=== PATIENT | female | born 1965 | race Caucasian/White ===

== ENCOUNTER 2023-07-14 09:55 | Emergency (ER) | payer OTHER, MEDICARE, SELFPAY ==
[2023-07-14 10:02] VITALS: BP 152/105; PULSE 91; TEMP 36.4; O2SAT 96; BMI 41.6
--- NOTE | 2023-07-14 10:11 | PC.NURSE ---
Nosebleed from R nostril first and then into L nostril -- on and off since thursday. started today at 0730. bleeding controlled at this time.
--- NOTE | 2023-07-14 10:14 | ED_ITS ---
HPI - Epistaxis General Chief Complaint: Epistaxis Stated Complaint: NEEDS NOSE PACKED Time Seen by Provider: 07/14/23 10:04 Source: patient Mode of arrival: walk-in Limitations: no limitations History of Present Illness HPI Narrative: 57-year-old female presents for intermittent nosebleed on the right side for the past few days. No injury. It was heavy at home she states. She has not had a nosebleed since she was a child. She does not take blood thinners. Related Data Previous Rx's ?Medication ?Instructions ?Recorded amoxicillin 500 mg capsule 500 mg PO TID 3 days #9 caps 07/14/23 Allergies Allergy/AdvReac Type Severity Reaction Status Date / Time Sulfa (Sulfonamide Allergy Verified 07/14/23 10:05 Antibiotics) Review of Systems ROS Narrative A ten point review of systems is negative except as noted above. Exam Narrative Exam Narrative: Nurses note and vital signs reviewed and patient is not hypoxic. General: The patient appears well and in no apparent distress. Patient is resting comfortably on cart. Skin: Warm, dry, no pallor noted. There is no rash noted. Head: Normocephalic, atraumatic Eye: Normal conjunctiva, no drainage Ears, Nose, Mouth, and Throat: oral mucosa is moist. Nares patent. No active bleeding Cardiovascular: Regular Rate and Rhythm Respiratory: Patient is in no distress, no accessory muscle use, lungs are clear to auscultation, no wheezing, rales or rhonchi Back: non-tender GI: Soft and nontender Musculoskeletal: The patient has no evidence of calf tenderness, no pitting edema, symmetrical pulses noted bilaterally Neurological: A&O, normal speech Psychiatric: Cooperative Constitutional Vital Signs, click to edit/add: Last Vital Signs Temp 97.6 F 07/14/23 10:02 Pulse 91 H 07/14/23 10:02 Resp 18 07/14/23 10:02 BP 148/96 H 07/14/23 10:17 Pulse Ox 96 07/14/23 10:02 O2 Del Method Room Air 07/14/23 10:02 Course Vital Signs Vital signs: Vital Signs Temperature 97.6 F 07/14/23 10:02 Pulse Rate 91 H 07/14/23 10:02 Respiratory Rate 18 07/14/23 10:02 Blood Pressure 152/105 H 07/14/23 10:02 Pulse Oximetry 96 07/14/23 10:02 Oxygen Delivery Method Room Air 07/14/23 10:02 Temperature 97.6 F 07/14/23 10:02 Pulse Rate 91 H 07/14/23 10:02 Respiratory Rate 18 07/14/23 10:02 Blood Pressure 148/96 H 07/14/23 10:17 Pulse Oximetry 96 07/14/23 10:02 Oxygen Delivery Method Room Air 07/14/23 10:02 MDM - Epistaxis MDM Narrative Medical decision making narrative: The patient was instructed to have the packing taken out in 3 days. She has an appointment with ENT physician in 3 days and she was placed on a short course of prophylactic amoxicillin. Treatment diagnosis and follow-up were discussed with the patient. Differential Diagnosis Differential diagnosis: Likely anterior epistaxis and posterior epistaxis Lab Data Attestation: I reviewed the patient's lab results. Labs: Lab Results 07/14/23 Range/Units 10:26 WBC 4.0 (4.0-11.0) 10^3/uL RBC 4.53 (4.20-5.40) 10^6/uL Hgb 13.4 (12.0-16.0) g/dL Hct 40.5 (36.0-48.0) % MCV 89.4 (81.0-99.0) fL MCH 29.6 (26.7-34.0) pg MCHC 33.1 (29.9-35.2) g/dL RDW 11.9 (11.0-15.0) % Plt Count 248 (150-450) 10^3/uL MPV 10.0 (9.5-13.5) fL Neut % (Auto) 76.3 H (43.0-75.0) % Lymph % (Auto) 17.1 L (20.5-60.0) % [place] % (Auto) 3.7 (1.7-12.0) % Eos % (Auto) 1.2 (0.9-7.0) % Baso % (Auto) 1.2 (0.2-2.0) % Neut # (Auto) 3.1 (1.4-6.5) 10^3/uL Lymph # (Auto) 0.7 L (1.2-3.8) 10^3/uL [place] # (Auto) 0.2 L (0.3-0.8) 10^3/uL Eos # (Auto) 0.1 (0.0-0.7) 10^3/uL Baso # (Auto) 0.1 (0.0-0.1) 10^3/uL Abs Immat Gran (auto) 0.02 (0.00-0.03) 10^3/uL Imm/Tot Granulo (auto) 0.5 (0.0-0.5) % Sodium 139 (136-145) mmol/L Potassium 3.8 (3.5-5.1) mmol/L Chloride 104 (98-107) mmol/L Carbon Dioxide 23.6 (21.0-32.0) mmol/L Anion Gap 15.2 BUN 10.0 (7.0-18.0) mg/dL Creatinine 0.87 (0.55-1.02) mg/dL Est GFR ( Amer) >60 (>=60) Est GFR (Non-Af Amer) >60 (>=60) BUN/Creatinine Ratio 11.5 Glucose 122 H (74-106) mg/dL Calcium 8.3 L (8.5-10.1) mg/dL Discharge Plan Discharge Stand Alone Forms: Portal Instructions Chief Complaint: Epistaxis Clinical Impression: Epistaxis Patient Disposition: Home, Self-Care Time of Disposition Decision: 10:58 Condition: Good Mode of Transportation: Private Vehicle Prescriptions / Home Meds: New amoxicillin 500 mg capsule 500 mg PO TID 3 Days Qty: 9 0RF Print Language: Liberian Instructions: Nosebleed (ED) Additional Instructions: See the ENT physician at your appointment on Thursday. Packing should be removed on Thursday. Referrals: BARBARA NIELSON [Primary Care Provider] - 1 week Procedures ED Procedure Instructions Procedures Procedures: The following procedure was performed by me. 5.5 cm anterior inflatable packing was placed in the right nares with no difficulty. This resulted in complete hemostasis. She tolerated the procedure well. No complications.
[2023-07-14 10:17] VITALS: BP 148/96
[2023-07-14 10:38] LABS: Basophils Absolute Auto 0.1 10^3/uL (0.0-0.1); Basophils Percent Auto 1.2 % (0.2-2.0); Eosinophils Absolute Auto 0.1 10^3/uL (0.0-0.7); Eosinophils Percent Auto 1.2 % (0.9-7.0); Hematocrit 40.5 % (36.0-48.0); Hemoglobin 13.4 g/dL (12.0-16.0); Immature Granulocytes Abs Auto 0.02 10^3/uL (0.00-0.03); Immature Granulocytes Pct Auto 0.5 % (0.0-0.5); Lymphocytes Absolute Auto 0.7 10^3/uL (1.2-3.8); Lymphocytes Percent Auto 17.1 % (20.5-60.0); Mean Corpuscular HGB Conc 33.1 g/dL (29.9-35.2); Mean Corpuscular Hemoglobin 29.6 pg (26.7-34.0); Mean Corpuscular Volume 89.4 fL (81.0-99.0); Monocytes Absolute Auto 0.2 10^3/uL (0.3-0.8); Monocytes Percent Auto 3.7 % (1.7-12.0); Neutrophils Absolute Auto 3.1 10^3/uL (1.4-6.5); Neutrophils Percent Auto 76.3 % (43.0-75.0); Platelet Count 248 10^3/uL (150-450); Red Blood Count 4.53 10^6/uL (4.20-5.40); Red Cell Distribution Width 11.9 % (11.0-15.0)
[2023-07-14 10:48] LABS: Anion Gap 15.2; BUN Creatinine Ratio 11.5; Calcium 8.3 mg/dL (8.5-10.1); Carbon Dioxide 23.6 mmol/L (21.0-32.0); Chloride 104 mmol/L (98-107); Estimated GFR (African America >60 (>=60); Estimated GFR (Non-African Ame >60 (>=60); Glucose 122 mg/dL (74-106); Potassium 3.8 mmol/L (3.5-5.1); Sodium 139 mmol/L (136-145)
== END 2023-07-14 11:17 | disposition home or self-care (01) ==
PROVIDERS: Emergency Provider Emergency Medicine; PCP Family Medicine
DX: R04.0 Epistaxis (principal)
CPT/HCPCS: 30901; 36415; 80048; 85025; 85610; 85730; 99283; 99285

== ENCOUNTER 2023-07-14 11:35 | Emergency (ER) | payer OTHER, MEDICARE, SELFPAY ==
[2023-07-14 11:46] VITALS: BP 150/100; PULSE 112; TEMP 36.6; O2SAT 96; BMI 25.0
--- NOTE | 2023-07-14 14:22 | ED.EPISTAXI1 ---
HPI - Epistaxis General Chief Complaint: Epistaxis Stated Complaint: NOSE BLEEDING Time Seen by Provider: 07/14/23 12:09 Source: patient Mode of arrival: walk-in Limitations: no limitations History of Present Illness HPI Narrative: 57-year-old female presented for nosebleed. She has been seen here earlier today and was discharged after packing was applied. She had more bleeding from the right nares and she returned. No trauma. Related Data Previous Rx's ?Medication ?Instructions ?Recorded amoxicillin 500 mg capsule 500 mg PO TID 3 days #9 caps 07/14/23 Allergies Allergy/AdvReac Type Severity Reaction Status Date / Time Sulfa (Sulfonamide Allergy Verified 07/14/23 10:05 Antibiotics) Review of Systems ROS Narrative A ten point review of systems is negative except as noted above. Exam Narrative Exam Narrative: Nurses note and vital signs reviewed and patient is not hypoxic. General: The patient appears well and in no apparent distress. Patient is resting comfortably on cart. Skin: Warm, dry, no pallor noted. There is no rash noted. Head: Normocephalic, atraumatic Eye: Normal conjunctiva, no drainage Ears, Nose, Mouth, and Throat: oral mucosa is moist. Right nares has packing in place, inflatable. No active bleeding now. Cardiovascular: Regular Rate and Rhythm Respiratory: Patient is in no distress, no accessory muscle use, lungs are clear to auscultation, no wheezing, rales or rhonchi Back: non-tender GI: Soft and nontender Musculoskeletal: The patient has no evidence of calf tenderness, no pitting edema, symmetrical pulses noted bilaterally Neurological: A&O, normal speech Psychiatric: Cooperative Constitutional Vital Signs, click to edit/add: Last Vital Signs Temp 97.8 F 07/14/23 11:46 Pulse 112 H 07/14/23 11:46 Resp 200 H 07/14/23 11:46 BP 150/100 H 07/14/23 11:46 Pulse Ox 96 07/14/23 11:46 O2 Del Method Room Air 07/14/23 11:46 Course Vital Signs Vital signs: Vital Signs Temperature 97.8 F 07/14/23 11:46 Pulse Rate 112 H 07/14/23 11:46 Respiratory Rate 200 H 07/14/23 11:46 Blood Pressure 150/100 H 07/14/23 11:46 Pulse Oximetry 96 07/14/23 11:46 Oxygen Delivery Method Room Air 07/14/23 11:46 Temperature 97.8 F 07/14/23 11:46 Pulse Rate 112 H 07/14/23 11:46 Respiratory Rate 200 H 07/14/23 11:46 Blood Pressure 150/100 H 07/14/23 11:46 Pulse Oximetry 96 07/14/23 11:46 Oxygen Delivery Method Room Air 07/14/23 11:46 MDM - Epistaxis MDM Narrative Medical decision making narrative: She will see her ENT physician in 3 days and should have the packing removed that day. Treatment diagnosis and follow-up were discussed with the patient. Differential Diagnosis Differential diagnosis: Likely anterior epistaxis and posterior epistaxis Discharge Plan Discharge Stand Alone Forms: Portal Instructions Chief Complaint: Epistaxis Clinical Impression: Epistaxis Patient Disposition: Home, Self-Care Time of Disposition Decision: 14:23 Condition: Good Mode of Transportation: Private Vehicle Prescriptions / Home Meds: No Action amoxicillin 500 mg capsule 500 mg PO TID 3 Days Qty: 9 0RF Print Language: Spanish Instructions: Nosebleed (ED) Additional Instructions: See the ENT physician as scheduled on Thursday. Packing to be removed on Thursday. Referrals: BARBARA NIELSON [Primary Care Provider] - 1 week Procedures ED Procedure Instructions Procedures Procedures: The following procedure was performed by me. The existing nasal packing was removed. She did not seem to have any further bleeding and Vaseline gauze packing was applied to the right nares and taped in place. She tolerated the procedure well. Hemostasis achieved.
== END 2023-07-14 14:37 | disposition home or self-care (01) ==
PROVIDERS: Emergency Provider Emergency Medicine; PCP Family Medicine
DX: R04.0 Epistaxis (principal)
CPT/HCPCS: 30901; 99283

== ENCOUNTER 2023-07-14 16:56 | Emergency (ER) | payer OTHER, MEDICARE, SELFPAY ==
[2023-07-14 17:03] VITALS: BP 160/80; PULSE 125; TEMP 36.5; O2SAT 98; BMI 41.6
[2023-07-14 17:50] LABS: Basophils Absolute Auto 0.1 10^3/uL (0.0-0.1); Eosinophils Percent Auto 0.6 % (0.9-7.0); Hematocrit 42.3 % (36.0-48.0); Hemoglobin 13.7 g/dL (12.0-16.0); Immature Granulocytes Abs Auto 0.02 10^3/uL (0.00-0.03); Immature Granulocytes Pct Auto 0.3 % (0.0-0.5); Lymphocytes Absolute Auto 1.2 10^3/uL (1.2-3.8); Lymphocytes Percent Auto 18.1 % (20.5-60.0); Mean Corpuscular HGB Conc 32.4 g/dL (29.9-35.2); Mean Corpuscular Hemoglobin 29.1 pg (26.7-34.0); Mean Corpuscular Volume 89.8 fL (81.0-99.0); Monocytes Absolute Auto 0.3 10^3/uL (0.3-0.8); Monocytes Percent Auto 4.2 % (1.7-12.0); Neutrophils Absolute Auto 5.1 10^3/uL (1.4-6.5); Neutrophils Percent Auto 75.8 % (43.0-75.0); Platelet Count 305 10^3/uL (150-450); Red Blood Count 4.71 10^6/uL (4.20-5.40); Red Cell Distribution Width 11.8 % (11.0-15.0); White Blood Count 6.7 10^3/uL (4.0-11.0)
[2023-07-14 17:55] LABS: Anion Gap 14.9; BUN Creatinine Ratio 25.3; Calcium 8.4 mg/dL (8.5-10.1); Carbon Dioxide 25.1 mmol/L (21.0-32.0); Chloride 105 mmol/L (98-107); Estimated GFR (African America >60 (>=60); Estimated GFR (Non-African Ame >60 (>=60); Glucose 133 mg/dL (74-106); Sodium 141 mmol/L (136-145)
[2023-07-14] MEDS: PHENYLEPHRINE HCL 0.25 % NASAL SPRAY 2 SPRAY NS (17:56)
[2023-07-14 18:05] LABS: INR 0.94
--- NOTE | 2023-07-14 19:03 | ED.EPISTAXI1 ---
HPI - Epistaxis General Chief Complaint: Epistaxis Stated Complaint: Epistaxis Time Seen by Provider: 07/14/23 17:06 Source: patient and family Mode of arrival: walk-in Limitations: no limitations History of Present Illness HPI Narrative: 57-year-old female presented for the third time today with a nosebleed. It started again after she had been home for several hours and it still coming from the right side. She is not on blood thinners. Related Data Previous Rx's ?Medication ?Instructions ?Recorded amoxicillin 500 mg capsule 500 mg PO TID 3 days #9 caps 07/14/23 Allergies Allergy/AdvReac Type Severity Reaction Status Date / Time Sulfa (Sulfonamide Allergy Verified 07/14/23 10:05 Antibiotics) Review of Systems ROS Narrative A ten point review of systems is negative except as noted above. Exam Narrative Exam Narrative: Nurses note and vital signs reviewed and patient is not hypoxic. General: The patient appears well and in no apparent distress. Patient is resting comfortably on cart. Skin: Warm, dry, no pallor noted. There is no rash noted. Head: Normocephalic, atraumatic Eye: Normal conjunctiva, no drainage Ears, Nose, Mouth, and Throat: oral mucosa is moist. Packing present on the right side. Cardiovascular: Regular Rate and Rhythm Respiratory: Patient is in no distress, no accessory muscle use, lungs are clear to auscultation, no wheezing, rales or rhonchi Back: non-tender GI: Soft and nontender Musculoskeletal: The patient has no evidence of calf tenderness, no pitting edema, symmetrical pulses noted bilaterally Neurological: A&O, normal speech Psychiatric: Cooperative Constitutional Vital Signs, click to edit/add: Last Vital Signs Temp 97.7 F 07/14/23 17:03 Pulse 125 H 07/14/23 17:03 Resp 18 07/14/23 17:03 BP 160/80 H 07/14/23 17:03 Pulse Ox 98 07/14/23 17:03 O2 Del Method Room Air 07/14/23 17:03 Course Vital Signs Vital signs: Vital Signs Temperature 97.7 F 07/14/23 17:03 Pulse Rate 125 H 07/14/23 17:03 Respiratory Rate 18 07/14/23 17:03 Blood Pressure 160/80 H 07/14/23 17:03 Pulse Oximetry 98 07/14/23 17:03 Oxygen Delivery Method Room Air 07/14/23 17:03 Temperature 97.7 F 07/14/23 17:03 Pulse Rate 125 H 07/14/23 17:03 Respiratory Rate 18 07/14/23 17:03 Blood Pressure 160/80 H 07/14/23 17:03 Pulse Oximetry 98 07/14/23 17:03 Oxygen Delivery Method Room Air 07/14/23 17:03 MDM - Epistaxis MDM Narrative Medical decision making narrative: Hemoglobin has not changed. She is requesting transfer to facility with ENT and this is pending. Differential Diagnosis Differential diagnosis: Likely anterior epistaxis and posterior epistaxis Lab Data Attestation: I reviewed the patient's lab results. Labs: Lab Results 07/14/23 Range/Units 17:35 WBC 6.7 (4.0-11.0) 10^3/uL RBC 4.71 (4.20-5.40) 10^6/uL Hgb 13.7 (12.0-16.0) g/dL Hct 42.3 (36.0-48.0) % MCV 89.8 (81.0-99.0) fL MCH 29.1 (26.7-34.0) pg MCHC 32.4 (29.9-35.2) g/dL RDW 11.8 (11.0-15.0) % Plt Count 305 (150-450) 10^3/uL MPV 10.0 (9.5-13.5) fL Neut % (Auto) 75.8 H (43.0-75.0) % Lymph % (Auto) 18.1 L (20.5-60.0) % [place] % (Auto) 4.2 (1.7-12.0) % Eos % (Auto) 0.6 L (0.9-7.0) % Baso % (Auto) 1.0 (0.2-2.0) % Neut # (Auto) 5.1 (1.4-6.5) 10^3/uL Lymph # (Auto) 1.2 (1.2-3.8) 10^3/uL [place] # (Auto) 0.3 (0.3-0.8) 10^3/uL Eos # (Auto) 0.0 (0.0-0.7) 10^3/uL Baso # (Auto) 0.1 (0.0-0.1) 10^3/uL Abs Immat Gran (auto) 0.02 (0.00-0.03) 10^3/uL Imm/Tot Granulo (auto) 0.3 (0.0-0.5) % PT 10.0 (9.0-11.6) sec INR 0.94 APTT 26.0 (22.3-36.2) sec Sodium 141 (136-145) mmol/L Potassium 4.0 (3.5-5.1) mmol/L Chloride 105 (98-107) mmol/L Carbon Dioxide 25.1 (21.0-32.0) mmol/L Anion Gap 14.9 BUN 21.0 H (7.0-18.0) mg/dL Creatinine 0.83 (0.55-1.02) mg/dL Est GFR ( Amer) >60 (>=60) Est GFR (Non-Af Amer) >60 (>=60) BUN/Creatinine Ratio 25.3 Glucose 133 H (74-106) mg/dL Calcium 8.4 L (8.5-10.1) mg/dL Discharge Plan Discharge Patient Disposition: Still a Patient Procedures ED Procedure Instructions Procedures Procedures: I have removed the existing packing and placed a 7.5 cm anterior posterior packing into the right nares which resulted again in hemostasis.
[2023-07-14 19:35] VITALS: BP 126/84
--- NOTE | 2023-07-14 21:03 | PC.NURSE ---
1935: Patient property preservation specialist light stating patient walked to the bathroom and back to room when nose started to bleed around the rhino rocket. This RN placed pressure on nose. Bleeding subsided after 10 minutes of constant pressure. 1950: Patient property preservation specialist light for bleeding that started again. Patient states was attempting to wipe mouth and nose when bleeding started. Pressure applied for 15 minutes. Physician notified of bleeding. Dr. Cabrera removed rhino rocket at this time. Patient instructed to hold constant pressure. Ice pack placed on back of the neck. 2030: Patient property preservation specialist light stating that bleeding has started again. Pressure placed. Bleeding subsided at this time.
[2023-07-14 21:11] VITALS: BP 147/90; PULSE 107; O2SAT 98
== END 2023-07-14 21:51 | disposition short-term general hospital (02) ==
PROVIDERS: Emergency Medicine; Emergency Provider Internal Medicine; PCP Family Medicine
DX: R04.0 Epistaxis (principal)
CPT/HCPCS: 30901; 36415; 80048; 85025; 85610; 85730; 99283; 99285

== ENCOUNTER 2023-09-10 13:41 | Outpatient (OUT) | payer OTHER, MEDICARE, SELFPAY ==
--- NOTE | 2023-09-10 14:00 | CA_ITS ---
Patient Name: JULIETA CASAS MR#: [id number] : 1965 Exam Date: 09/10/2023 Ordering Doctor: MRS. KENNA SANCHEZ NURSING INFORMATICS SPECIALIST-C ECHOCARDIOGRAM REPORT PROCEDURE: CA ECHO DOPPLER COMPLETE INDICATIONS: Atrial septal aneurysm and PFO with closure device COMPARISON: None. DESCRIPTION: COMPLETE ECHOCARDIOGRAM Real-time transthoracic echocardiography with 2D, M-mode, spectral and color flow Doppler performed. QUALITY: Technical quality was adequate. LEFT VENTRICLE: Normal chamber size. Borderline left ventricular hypertrophy. LV EF: Global left ventricular systolic function is normal. Calculated left ventricular ejection fraction is 58%. No significant wall motion abnormalities. DIASTOLIC: Normal diastolic function. ATRIAL SEPTUM: Atrial septal closure device appears well seated without any shunting identified. LEFT ATRIUM: Normal chamber size. RIGHT ATRIUM: Mild dilatation. RIGHT VENTRICLE: Mild dilatation. Normal right ventricular systolic function. TRICUSPID VALVE: Normal mobility and thickness. No stenosis with trivial regurgitation. No evidence of pulmonary hypertension. RVSP 25mmHg MITRAL VALVE: Mildly thickened with normal mobility. No evidence of mitral valve stenosis. There is no mitral annular calcification. Trivial mitral regurgitation. AORTIC VALVE: Normal trileaflet appearance. No visible sclerosis. Normal leaflet mobility. No evidence of aortic valve stenosis. No aortic regurgitation. AORTIC ROOT: Normal diameter and appearance. PULMONIC VALVE: Normal thickness and mobility. No stenosis. No regurgitation. PERICARDIUM: Anterior free space; trivial effusion versus fat pad. IVC: Collapses with inspirations. Normal size. CONCLUSION: 1. Global left ventricular systolic function is normal; visually estimated ejection fraction is 55 to 60% 2. The right ventricle is mildly dilated with normal systolic function 3. Mild right atrial dilatation 4. Borderline left ventricular hypertrophy 5. No significant valvular abnormalities 6. Anterior free space; trivial effusion versus fat pad 7. Atrial septal closure device is seen with no residual shunting by color-flow Adult Echocardiography Procedure Report Left Ventricle LVEDD (3.7 - 5.6 cm): 4.64 cm LVESD (2.2 - 4.0 cm): 3.07 cm LVIVS thickness (0.6 - 1.2 cm): 0.99 cm LVPW thickness (0.5 - 1.0 cm): 1.18 cm e': 0.08 m/s E - e': 8.78 LVOT Max Gradient: 3.01 mm[Hg], 3.54 mm[Hg] LVOT Area (cm2): 0.90 m/s Peak Velocity (LVOT): 0.87 m/s, 0.94 m/s Mean Velocity (LVOT): 0.59 m/s LVOT Diameter 2.12 cm Left Ventricular Ejection Fraction: 57.70 % Left Atrium LA Volume Index (2D A2C): 22.91 ml/m2 Left Atrium Systolic Dimension: 4.48 cm Mitral Valve MV E to A Ratio: 0.74 Mitral Valve A-Wave Peak Velocity: 0.96 m/s Mitral Valve E-Wave Peak Velocity: 0.71 m/s Right Ventricle RV Internal Diastolic Dimension: 4.26 cm Aorta AO Root Diam: 3.07 cm Ascending Ao Diam: 2.80 cm Aortic Valve AoV Area (Peak Shin): 2.22 cm2, 2.13 cm2 AoV Area (VTI): 2.03 cm2, 2.07 cm2 Peak Velocity(Antegrade Flow): 1.43 m/s Peak Gradient(Antegrade Flow): 8.20 mm[Hg] Mean Velocity(Antegrade Flow): 0.93 m/s Mean Gradient(Antegrade Flow): 3.96 mm[Hg] Velocity Time Integral: 29.25 cm Tricuspid Valve Peak Velocity (Regurgitant Flow): 2.33 m/s Pulmonic Valve Mean Gradient: 2.19 mm[Hg], 2.08 mm[Hg], 1.41 mm[Hg] Mean Velocity: 0.69 m/s, 0.68 m/s, 0.55 m/s Peak Velocity: 0.92 m/s Peak Gradient: 3.96 mm[Hg], 3.51 mm[Hg], 2.80 mm[Hg] Right Atrium Right Atrium Systolic Pressure: 86.49 ml, 86.49 ml Dictated by: Caterina Molina M.D. on 09/14/2023 at 15:36 Approved by: Caterina Molina M.D. on 09/14/2023 at 15:40
--- NOTE | 2023-09-10 14:53 | US_ITS ---
[place] [id number] Patient Name: JULIETA CASAS MRN: [id number] date: 1965 Sex: F Assigned Patient Location: CARD Current Patient Location: CARD Accession/Order Number: [id number] Exam Date: 09/10/2023 14:55 Report Date: 09/10/2023 16:09 At the request of: KENNA SANCHEZ Procedure: US carotid duplex BI EXAMINATION: US carotid duplex BI HISTORY: Bruit Of Left Carotid Artery R09.89 COMPARISON: No relevant comparison available. TECHNIQUE: Duplex Doppler ultrasound analysis of carotid and vertebral arteries. . Bilateral carotid arterial duplex examination was performed using B-mode, color flow and spectral analysis. Carotid stenosis is reported according to validated velocity parameters, similar to NASCET criteria. FINDINGS: RIGHT CAROTID ARTERY No atherosclerotic plaque Subclavian: PSV: 117.8 cm/s cm/s EDV: 4.7 cm/s cm/s CCA: Prox: PSV: 84.0 cm/s cm/s EDV: 28.3 cm/s cm/s Mid: PSV: 93.0 cm/s cm/s EDV: 28.3 cm/s cm/s Distal: PSV: 86.6 cm/s cm/s EDV: 30.9 cm/s cm/s BULB: PSV: 84.0 cm/s cm/s EDV: 33.5 cm/s cm/s ICA: Prox: PSV: 85.3 cm/s cm/s EDV: 30.9 cm/s cm/s Mid: PSV: 61.4 cm/s cm/s EDV: 19.7 cm/s cm/s Distal: PSV: 53.7 cm/s cm/s EDV: 15.3 cm/s cm/s ECA: PSV: 91.1 cm/s cm/s EDV: 12.0 cm/s cm/s VERTEBRAL: PSV: 57.0 cm/s cm/s EDV: 17.5 cm/s cm/s, antegrade ICA/CCA ratio: PSV: 1.0 EDV: 1.0 LEFT CAROTID ARTERY no atherosclerotic plaque Subclavian: PSV: 95.6 cm/s cm/s EDV: 0.0 cm/s CCA: Prox: PSV: 91.7 cm/s cm/s EDV: 33.5 cm/s Mid: PSV: 91.7 cm/s cm/s EDV: 29.6 cm/s Distal: PSV: 74.9 cm/s cm/s EDV: 28.3 cm/s BULB: PSV: 52.9 cm/s cm/s EDV: 20.6 cm/s ICA: Prox: PSV: 60.7 cm/s cm/s EDV: 27.0 cm/s Mid: PSV: 82.6 cm/s cm/s EDV: 36.1 cm/s Distal: PSV: 118.1 cm/s cm/s EDV: 55.0 cm/s ECA: PSV: 120.0 cm/s cm/s EDV: 13.6 cm/s VERTEBRAL: PSV: 74.7 cm/s cm/s EDV: 31.3 cm/s , antegrade ICA/CCA ratio: PSV: 1.6 EDV: 1.9 US/US carotid duplex BI IMPRESSION: 0-49% flow stenosis bilateral internal carotid arteries Spectral Doppler US Thresholds (Reference: Jamar EG, et al. Radiology 2000; 214:247-252) Stenosis (%) PSV (cm/sec) VICA/VCCA 0-49 <150 <2.5 50-69 150-225 2.5-4.0 >70 >225 >4.0 Electronically authenticated by: MUSHTAQ FULLER Date: 09/10/2023 16:09
== END 2023-09-10 13:42 | disposition home or self-care (01) ==
LOC: CARD 13:45
PROVIDERS: PCP Family Medicine; Visit Provider Nurse Practitioner Family
DX: I25.3 Aneurysm of heart (principal); Q21.10 Atrial septal defect, unspecified; I45.10 Unspecified right bundle-branch block; R09.89 Other specified symptoms and signs involving the circulatory and respiratory systems
CPT/HCPCS: 93306; 93880

== ENCOUNTER 2023-11-16 10:39 | Outpatient (OUT) | payer OTHER, MEDICARE, SELFPAY ==
--- NOTE | 2023-11-16 10:41 | US_ITS ---
The [address] [address] Patient Name: JULIETA CASAS MRN: [id number] date: 1965 Sex: F Assigned Patient Location: Current Patient Location: Accession/Order Number: [id number] Exam Date: 11/16/2023 10:50 Report Date: 11/17/2023 08:13 At the request of: KENNA SANCHEZ Procedure: US pelvis transvaginal EXAM: Pelvic ultrasound HISTORY: . Bloating R14.0 . COMPARISON: None. TECHNIQUE: Transvaginal scanning was performed FINDINGS: The uterus is absent. Right ovary measures 1.8 x 2 x 2.3 cm. Color-flow is noted. Resistive indexes 0.6. No masses are noted. Left ovary measures 2.1 x 1.6 x 1.5 cm. Color-flow is noted. Resistive indexes 0.6. No masses are noted. No fluid is noted in the cul-de-sac. US/US pelvis transvaginal IMPRESSION: 1. Absent uterus 2. Normal-appearing ovaries Electronically authenticated by: MUSHTAQ BELLO Date: 11/17/2023 08:13
--- OUTSIDE RECORDS SUMMARY | 2023-11-16 10:55 | XMS_ITS | CCD ---
Author Organization [facility] Care Team Providers Care Materials Engineering Technician Name Role Phone DR MARIE NIELSON Primary Care Unavailable WOOD De Leon, DR BURNHAM Attending Unavailable WOOD De Leon, DR BURNHAM Consulting Unavailable WOOD De Leon, DR BURNHAM Admitting Unavailable MD Marie Nielson Primary Care Provider DO Agustin Pimentel Emergency Provider [phone] MD Marie Nielson Primary Care Provider DO Agustin Pimentel Emergency Provider DO Med Owens Emergency Provider Unavailable Primary Care Provider Unavailabl e Agustin Pimentel Attending Unavailable Agustin Pimentel Admitting Unavailable Marie Nielson Primary Care Unavailable Med Owens Admitting Unavailable Marie Nielson Primary Care Unavailable Med Owens Attending Unavailable PROVIDER, UNKNOWN Admitting Unavailable PROVIDER, UNKNOWN Attending Unavailable TOMMY VILLAGOMEZ Referring Unavailable BELLA LOVE Attending Unavailable PROVIDER, UNKNOWN Admitting Unavailable ERNESTINA VOGT Attending Unavailable PROVIDER, UNKNOWN Admitting Unavailable KENNA SANCHEZ Attending Unavailable LAURA TOUSSAINT Attending Unavailable ABHAY SANCHEZRI Elise Referring Unavailable LAURA TOUSSAINT Attending Unavailable KENNA SANCHEZ Attending Unavailable KENNA SANCHEZ M Attending Unavailable KENNA SANCHEZ M Attending Unavailable ELIECER NORTON Attending Unavailable MARIE NIELSON Attending Unavailable KENNA SANCHEZ Attending Unavailable Allergies Allergy Classification Reported Allergen(s) Allergy Type Date of Onset Reaction(s) Facility (1 source) Sulfonamides (Antibiotic) Drug allergy (disorder) 3 [facility] (3 sources) Eucalyptus extract; Translations: [eucalyptus] Drug Allergy 4 Unknown Reaction [facility] (3 sources) Sulfonamides (Antibiotic); Translations: [Sulfa (Sulfonamide Antibiotics)] Allergy to substance 4 Rash [facility] (2 sources) Sulfa Drugs Cross Reactors; Translations: [SULFA DRUGS CROSS REACTORS] Propensity to adverse reactions to drug 4 Rash, Diarrhea [facility] Medications Current Medications Medication Drug Class(es) Dates Sig (Normalized) Sig (Original) acetaminophen 325 mg / HYDROcodone bitartrate 5 mg oral tablet (2 sources) Opioid Agonist Start: 01-03-2019 take 5-325 mg by mouth every six hours Hydrocodone-Acetamin ophen Active 5 - 325 MG PO Q6H January 03, 2019 12:00am aspirin 81 mg delayed release oral tablet (2 sources) Platelet Aggregation Inhibitor, Nonsteroidal Anti-inflammatory Drug Start: 01-06-2019 take 81 mg by mouth once daily Aspirin Active 81 MG PO Daily January 06, 2019 12:00am cholecalciferol 0.05 mg oral tablet (2 sources) Vitamin D Start: 01-03-2019 take 1 tablet by mouth once daily Cholecalciferol (Vitamin D3) (Vitamin D3) 2,000 unit Tablet Active 2000 UNIT PO Daily January 03, 2019 12:00am furosemide 40 mg oral tablet (2 sources) Loop Diuretic Start: 01-03-2019 take 40 mg by mouth twice daily Furosemide Active 40 MG PO Twice daily January 03, 2019 12:00am levothyroxine sodium 0.1 mg oral tablet (2 sources) l-Thyroxine Start: 01-03-2019 take 100 ug by mouth once daily in the morning Levothyroxine Active 100 MCG PO Every morning January 03, 2019 12:00am potassium 99 mg extended release oral tablet (2 sources) Start: 01-03-2019 take 99 mg by mouth once daily Potassium Active 99 MG PO Daily January 03, 2019 12:00am Problems Problem Classification Problem Date Documented Da te Episodic/Chronic Menopausal disorders (1 source) Hormone replacement therapy; Translations: [HORMONE REPLACEMENT THERAPY] Onset: 07-14-2022 Episodic Noninfectious gastroenteritis (2 sources) Ileitis; Translations: [Noninfective gastroenteritis and colitis, unspecified] 02-25-2018 Episodic Nonspecific chest pain (1 source) Chest pain, unspecified; Translations: [Chest pain, unspecified] Onset: 05-28-2023 Episodic Other aftercare (1 source) ad terminal makeup operator (current) use of aspirin; Translations: [RAIL SIGNAL DESIGNER CURRENT USE OF ASPIRIN] Onset: 07-14-2022 Episodic Other aftercare (1 source) Other termite control representative (current) drug therapy; Translations: [OTH RAIL SIGNAL DESIGNER CURRENT DRUG THERAPY] Onset: 07-14-2022 Episodic Other ear and sense organ disorders (1 source) Malignant otitis externa, right ear; Translations: [MALIGNANT OTITIS EXTERNA RIGHT EAR] Onset: 07-14-2022 Chronic Other ear and sense organ disorders (1 source) Otalgia, left ear; Translations: [OTALGIA LEFT EAR] Onset: 07-14-2022 Episodic Other ear and sense organ disorders (2 sources) Otalgia, right ear; Translations: [OTALGIA RIGHT EAR] Onset: 07-13-2022 Episodic Other gastrointestinal disorders (2 sources) Diarrhea; Translations: [Diarrhea, unspecified] 05-28-2023 Episodic Other upper respiratory disease (1 source) Bleeding from nose; Translations: [Epistaxis] 07-21-2023 Episodic Other upper respiratory disease (1 source) Epistaxis; Translations: [Epistaxis] Onset: 07-13-2023 Episodic Residual codes; unclassified (1 source) Acquired absence of other specified parts of digestive tract; Translations: [ACQ ABSENCE OTH PART DIGESTV TRACT] Onset: 07-14-2022 Episodic Residual codes; unclassified (1 source) Acquired absence of both cervix and uterus; Translations: [ACQUIRED ABSENCE BOTH CERVIX AND UTERUS] Onset: 07-14-2022 Episodic Rheumatoid arthritis and related disease (1 source) Rheumatoid arthritis, unspecified; Translations: [RHEUMATOID ARTHRITIS UNSPECIFIED] Onset: 07-14-2022 Chronic Screening and history of mental health and substance abuse codes (1 source) Personal history of nicotine dependence; Translations: [PERSONAL HISTORY OF NICOTINE DEPEND] Onset: 07-14-2022 Episodic Thyroid disorders (1 source) Hypothyroidism, unspecified; Translations: [HYPOTHYROIDISM UNSPECIFIED] Onset: 07-14-2022 Chronic Results Test Name Value Interpretation Reference Range Facility Progress Noteson 07-23-2023 Technical Rep Authentication Interface Message Text Seen and examined. Initial history and findings as in Dr. Acevedo's Note Teaching Physician Note: I saw and evaluated the patient. I personally obtained the carlin and critical portions of the history and physical exam. I reviewed the resident's documentation and discussed the patient with the resident. I agree with the resident's medical decision making as documented in the resident's note. Dieudonne Kinney MD Normal [facility] Progress Noteson 07-21-2023 Technical Rep Authentication Interface Message Text Patient was identified by name and date of . Suzy Cuadra Patient in exam room, vital signs taken, ready for MD exam. Normal [facility] Technical Rep Authentication Interface Message Text ENT New Patient Clinic Note Name: Julieta Villa : 1965 PCP: No primary care provider on file. CC: Nose bleed History of Present Illness: Julieta Villa is a 57 year old female who presents to clinic today for initial evaluation of Epistaxis. She initially presented to ED on 07/14/23 for nose bleed of right nares unresolving with rhino rockets. At the time she was noted to have elevated BP 161 and on ASA 81 daily. Right merocel placed, afrin prescribed 3 days, nasal saline, and keflex. Bleeding reoccured / in emergency room and was resolved with angiocath around packing and pressure. Again, her pressure was elevated at that time 144 systolic. This was her first nose bleed since childhood and denies any trauma to the nose. She normally follows with Dr. Floyd in [place] but has elected to come here for packing removal. Since the event she has not had anymore bleeding. She has completed her antibiotics as prescribed. She has stopped using afrin 2 days ago. No other complaints or pertinent history at this time. Review of Systems: A complete 14 point review of systems was obtained and was negative other than what is stated in the history of present illness. Past Medical History: This patient has no past medical history on file. Past Surgical History: This patient has no past surgical history on file. Family History: This patient's family history is not on file. Medications: No current outpatient medications Allergies: Allergies Allergen Reactions Sulfa Drugs Cross Reactors Rash and Diarrhea Social History: Physical Examination: Vitals: There were no vitals taken for this visit. GENERAL: Appears well developed, well nourished RESPIRATION: Breathing comfortably on room air, no stridor CV: No clubbing/cyanosis/e debra in hands EYES: EOM Intact, sclera normal NEURO: AAOx3, Cranial nerves grossly intact HEAD AND FACE: Skin with no masses or lesions EARS: Normal external ears, external auditory canals, and TMs to otoscopy. Conversational hearing grossly intact. NOSE: External nose midline, anterior rhinoscopy is normal with limited visualization to the anterior aspect of the interior turbinates, no lesions noted, right merocel packing removed, right deviated septum with irritated mucosa on anterior right septum, no active bleeding ORAL CAVITY/OROPHARYNX/L IPS: Normal mucous membranes, normal floor of mouth/tongue/OP, no masses or lesions are noted PHARYNGEAL CAMACHO AND NASOPHARYNX: No masses noted NECK/LYMPH: No LAD, no thyroid masses Impression: Julieta Villa is a 57 year old female who presents to ENT clinic today for epistaxis evaluation following ER visits back to back 07/13 and 07/15/23. Merocel packing removed and irritated mucosa exposed underneath without signs of active bleeding. Plan -afrin twice daily for three days, then stop for two days -nasal saline irrigations three times daily or more if tolerated -night time humidification -pressure and forward position discussed for bleeds -counseled on avoiding picking and trauma to nares. This patient was discussed with attending Dr. Kinney, who agrees with the assessment and plan. Sher Acevedo, PGY-1 Otolaryngology Head and Neck Surgery [facility] Service Pager: [phone] Normal [facility] BASIC METABOLIC PANELon 04-0 Anion gap [Moles/Vol] 16 mmol/L Normal 10-20 [facility] Comment on above: Performed By: #### h iv1 hiv2 agab scrn, CH8 ####[facility] [id number] [place], [address] Calcium [Mass/Vol] 8.9 mg/dL Normal 8.6-10.3 [facility] Comment on above: Performed By: #### h iv1 hiv2 agab scrn, CH8 ####[facility] [id number] [place], [address] Chloride [Moles/Vol] 106 mmol/L Normal 98-107 [facility] Comment on above: Performed By: #### h iv1 hiv2 agab scrn, CH8 ####[facility] [id number] [place], [place], CO2 [Moles/Vol] 23 mmol/L Normal 21-31 [facility] Comment on above: Performed By: #### h iv1 hiv2 agab scrn, CH8 ####[facility] [id number] [place], [place], Creatinine [Mass/Vol] 0.74 mg/dL Normal 0.60-1.20 [facility] Comment on above: Performed By: #### h iv1 hiv2 agab scrn, CH8 ####[facility] [id number] [place], [place], ESTIMATED GFR (CKD-EPI) 95 mL/min/1.73sqm Normal >=60 [facility] Comment on above: Result Comment: 2020 CKD EPI Equation using Creatinine without Race Comment: Estimated glomerular filtration rate (eGFR) is calculated without a race coefficient. Values should be interpreted in the context of the patient's full clinical presentation. Reference: 1. Suleman C, Bachary M, Dixon DC, et al.. A Unifying Approach for GFR Estimation: Recommendations of the NKF-ASN Task Force on Reassessing the Inclusion of Race in Diagnosing Kidney Disease. [place] Journal of Kidney Diseases 2021;79(2):268-88.e1. 2. N Engl J Med 2020 Vol. 385 Issue 19 Pages 4008-2961 Performed By: #### h iv1 hiv2 agab scrn, CH8 ####[facility] [id number] [place], [place], Glucose [Mass/Vol] 141 mg/dL High 74-109 [facility] Comment on above: Performed By: #### h iv1 hiv2 agab scrn, CH8 ####[facility] [id number] [place], [place], Potassium [Moles/Vol] 4.9 mmol/L Normal 3.5-5.0 [facility] Comment on above: Result Comment: Hemo lysis present Performed By: #### h iv1 hiv2 agab scrn, CH8 ####[facility] PATH[facility] [id number] [place], [place], Sodium [Moles/Vol] 140 mmol/L Normal 136-145 [facility] Comment on above: Performed By: #### h iv1 hiv2 agab scrn, CH8 ####[facility] [id number] [place], [place], Urea nitrogen [Mass/Vol] 28 mg/dL High 7-25 [facility] Comment on above: Performed By: #### h iv1 hiv2 agab scrn, CH8 ####[facility] [id number] [place], [place], CBC WITH DIFFERENTIALon 040 Basophils (Bld) [#/Vol] 0.07 10*3/uL Normal 0.00-0.20 [facility] Comment on above: Performed By: #### C BCDSAT ####[facility] [id number] [place] [address], Basophils/100 WBC (Bld) 0.8 % Normal <=1.9 T [facility] Comment on above: Performed By: #### C BCDSAT ####[facility] [id number] [place] [address], Eosinophils (Bld) [#/Vol] 0.03 10*3/uL Normal 0.00-0.70 [facility] Comment on above: Performed By: #### C BCDSAT ####[facility] [id number] [place] [address], Eosinophils/100 WBC (Bld) 0.4 % Normal 0.1-4.0 [facility] Comment on above: Performed By: #### C BCDSAT ####[facility] [id number] [place], [place], Erythrocyte distribution width (RBC) [Ratio] 13.1 % Normal 11.5-14.5 [facility] Comment on above: Performed By: #### C BCDSAT ####S PATHOLOGY [id number] [place] [address], Hematocrit (Bld) [Volume fraction] 35.9 % Low 36.0-46.0 [facility] Comment on above: Performed By: #### C SHAIDSAT ####[facility] [id number] [place], [place], Hemoglobin (Bld) [Mass/Vol] 12.4 g/dL Normal 12.0-15.0 [facility] Comment on above: Performed By: #### C RANDALAT ####[facility] [id number] [place], [place], Lymphocytes (Bld) [#/Vol] 1.09 10*3/uL Normal 1.00-4.80 [facility] Comment on above: Performed By: #### C RANDALAT ####[facility] [id number] [place], [place], Lymphocytes/100 WBC (Bld) 13.4 % Low 24.0-44.0 [facility] Comment on above: Performed By: #### Dayan TEEAT ####[facility] [id number] [place], [place], MCH (RBC) [Entitic mass] 30.4 pg Normal 26.0-34.0 [facility] Comment on above: Performed By: #### C RANDALAT ####[facility] [id number] [place], [place], MCHC (RBC) [Mass/Vol] 34.4 g/dL Normal 32.0-35.9 [facility] Comment on above: Performed By: #### C RANDALAT ####[facility] [id number] [place], [place], MCV (RBC) [Entitic vol] 88 fL Normal 80-100 T [facility] Comment on above: Performed By: #### Dayan TEEAT ####[facility] [id number] [place], [place], MONOCYTE DISTRIBUTION WIDTH 20 Normal <=20 [facility] Comment on above: Performed By: #### Dayan TEEAT ####[facility] [id number] [place], [place], Monocytes (Bld) [#/Vol] 0.33 10*3/uL Normal 0.20-1.00 [facility] Comment on above: Performed By: #### C BCDSAT ####[facility] [id number] [place], [place], Monocytes/100 WBC (Bld) 4.1 % Normal 2.0-11.0 [facility] Comment on above: Performed By: #### C SHAIDSAT ####[facility] [id number] [place], [place], Neutrophils (Bld) [#/Vol] 6.64 10*3/uL Normal 1.50-8.00 [facility] Comment on above: Performed By: #### C BCDSAT ####[facility] [id number] [place], [place], Neutrophils/100 WBC (Bld) 81.3 % High 31.0-76.0 [facility] Comment on above: Performed By: #### C BCDSAT ####[facility] [id number] [place], [place], Platelet mean volume (Bld) [Entitic vol] 8.8 fL Normal 7.5-11.2 [facility] Comment on above: Performed By: #### C BCDSAT ####[facility] [id number] [place], [place], Platelets (Bld) [#/Vol] 284 10*3/uL Normal 150-400 [facility] Comment on above: Performed By: #### C BCDSAT ####[facility] [id number] [place], [place], RBC (Bld) [#/Vol] 4.07 10*6/uL Normal 4.00-5.20 [facility] Comment on above: Performed By: #### C BCDSAT ####[facility] [id number] [place], [place], WBC (Bld) [#/Vol] 8.2 10*3/uL Normal 4.5-11.5 [facility] Comment on above: Performed By: #### C BCDSAT ####[facility] [id number] [place], [address] [employer] 07-16-2023 Technical Rep Authentication Interface Message Text ---- Attestation signed by Jeff Gray MD at 07/17/2023 11:37 AM Attestation: Patient discussed with me but not seen by me. Agree with assessment and plan. ---- ENT CONSULTATION NOTE Attending requesting consult: Sin Reason for consult: epistaxis HPI: Recall from 07/14 previous visit: Julieta Villa is a 57 year old female with PMHx significant for GERD, atrial septal aneurysm, with several day history of R naris epistaxis, initially managed and controlled with pressure, but then rebleeding requiring presentation to ED and failed control with multiple rhinorockets. Patient transferred to [facility] for ENT evaluation. Patient on ASA 81 for previous interventional cards procedures. Noted to be slightly hypertensive SBP 161 on arrival, tachy to 130s. Coags within normal limits, CBC still pending. Patient reporting lightheadedness, fatigue. Today: Patient re-presents with bleeding around the packing. This started about 7pm. This was mostly anterior dripping around the packing with some dripping in the back of the throat. This stopped with pressure applied by the patient. No interventions while in ED prior to ENT evaluation. Hgb 12.4 today. ROS: 14 point review of systems completed and all negative except as noted in HPI. History reviewed. No pertinent past medical history. History reviewed. No pertinent surgical history. No family history on file. Allergies: Allergies Allergen Reactions Sulfa Drugs Cross Reactors Rash and Diarrhea Vital signs: Vital sign ranges over the past 24 hours (retrieved 07/16/2023 at 12:59 AM): Tmax (24 hours): 98 ???F (36.7 ???C) Pulse Av.1 Min: 80 Max: 112 Systolic (24hrs), Av , Min:115 , Max:144 Diastolic (24hrs), Av, Min:77, Max:102 MAP (mmHg) Av mmHg Min: 89 mmHg Max: 89 mmHg Resp Av Min: 13 Max: 20 SpO2 Av.8 % Min: 95 % Max: 98 % Physical Exam: CONSTITUTIONAL: Mild acute distress VOICE: No hoarseness or other abnormality RESPIRATION: Breathing comfortably, no stridor CV: No clubbing/cyanosis/e debra in hands EYES: EOM intact, sclera normal NEURO: Alert and oriented times 3, Cranial nerves II-XII grossly intact and symmetric bilaterally HEAD AND FACE: Symmetric facial features, no masses or lesions, sinuses non-tender to palpation EARS: normal hearing to whispered voice. Right ear: Normal external ear Left ear: Normal external ear NOSE: External nose midline, packing is well positioned, no active bleeding. ORAL CAVITY/OROPHARYNX/L IPS: Normal mucous membranes, normal floor of mouth/tongue/OP, no masses or lesions PHARYNGEAL CAMACHO: No masses or lesions, posterior pharyngeal wall with old blood, no active bleed NECK/LYMPH: No LAD, no thyroid masses, trachea midline SKIN: Neck skin is without scar or injury PSYCH: Alert and oriented with appropriate mood and affect Procedure: Control of Epistaxis Verbal informed consent was obtained from the patient. Examination reveals right sided packing is well placed. There is no active bleeding around the packing anteriorly. Afrin was sprayed liberally in order to decongest and allowed to sit for several minutes. Assessment/Plan: 57 year old female with several days of R naris epistaxis, refractory to rhinorocket attempts at OSH. Packed with a merocel yesterday by ENT. No active bleeding on ENT evaluation. Hbg is stable. BP well controlled. Recommendations: -Afrin 3x daily to both nares for 3 days -If patient has bleeding spray afrin liberally into both nares and hold pressure for 15 minutes, repeat this 3x -Nasal saline 5 sprays 4x daily for 10 days -To assist in administration of medications, the patient can be provided with a soft angiocath and 3 cc syringe. This can be used to gently guide the catheter between the packing and the nasal tissue to administer the medication into the nasal cavity - this is in the room with the patient -BP control, goal SBP < 160 -Keflex (or other abx covering S. aureus) while packing is in -Packing will remain for 3-5 days -Recommend outpatient follow-up with ENT - patient lives in [place] and has standing appointment with Dr. Floyd and wishes to follow-up with him for packing removal; if she wants to follow with us at [facility], we can arrange follow-up as well Diamond Hanson Otolaryngology-Head AND Neck Surgery, PGY-3 Normal [facility] ED Provider Tejal 07-16-19 Technical Rep Authentication Interface Message Text EMERGENCY DEPARTMENT - VISIT NOTE HISTORY OF PRESENT ILLNESS ------- Julieta Villa is a 57 year old female with a history of epistaxis, htn on chart review presenting to the ED for epistaxis. She reports: Reports yesterday had a nosebleed, requiring packing by ENT. Today around 9:30 p.m. started to bleed again. Had bleeding down the back of her throat as well as out in through the packing. Did not stop with the compression at home. Here denies any other symptoms. No headache fever chills. No cough congestion. Has not been blowing her nose. Denies any trauma. Review of external notes and records: 1 ENT consult note from yesterday shows packing with Merocel. To follow up in clinic. Given antibiotics. PHYSICAL EXAM ----- ED Triage Vitals [07/15/23 2257] Temperature BP Heart Rate Respiratory Rate SpO2 Weight 98 ???F (36.7 ???C) (!) 144/102 (!) 112 20 97 % -- Exam: Constitutional: Nursing triage notes reviewed, Vital signs reviewed, Alert, Awake, No acute distress HENT: Normocephalic. Atraumatic. Right naris with packing in place. Dried blood. No active bleeding appreciated. Oropharynx clear, no bleeding noted. Lungs: Clear to auscultation, No respiratory distress Heart: Regular rate, regular rhythm 2+ radial pulses, well perfused Skin: Warm and Dry MEDICAL DECISION MAKING and ED COURSE -- Evaluated by EM attending James Chou Nursing triage and assessment notes reviewed and incorporated. Chart Review: See HPI Course: ED Course as of 07/16/23 0211 Wed Jul 15, 2023 2356 CBC without leukocytosis, no significant anemia, normal platelets [MS] 2356 Ent aware, to eval patient [MS] Tanvi Jul 16, 2023 0015 BMP without elida or clinically significant electrolyte abnormalities contributing to patient's presentation [MS] ED Course User Index [MS] Christiano Suarez MD Medical Decision Making: Please see full HPI, Physical exam, and ED course above. Chart reviewed and summary of external notes/encounters in HPI Labs independently interpreted in ED course Imaging interpreted in ED course Telemetry/Vitals interpreted in ED course Discussion with non-ed providers: Discussed with Dr. Hanson from ENT via phone, after evaluation in the ED is okay for discharge home This is a 57 year old female with pmh per above who presents to the ed for epistaxis. On arrival in no acute distress well-appearing. Has Merocel packing in place in right naris without active bleeding appreciated. After talking with triage providers patient was having large amounts of bleeding anteriorly and posteriorly with clots. They attempted Afrin without success. On my evaluation patient without any active bleeding. Discussed with ENT who evaluated the patient in the ED and are comfortable with discharge home after obs period. IMPRESSION AND DISPOSITION --------- Clinical Impression Diagnosis Comment Epistaxis [R04.0] Disposition: Home The patient has received a medical screening examination and within reasonable clinical confidence an emergency medical condition has not been identified. Counseling: Spoke with the patient and discussed today's findings, in addition to providing specific details for the plan of care and expected course. They were given the opportunity to ask questions. Discussed return precautions and importance of follow-up. Advised to follow-up with pcp. Advised to return to the ED for changing or worsening symptoms, new symptoms, complaint specific precautions, and precautions listed on the discharge paperwork. Christiano Suarez MD PGY-3 Emergency Medicine ATTENDING NOTE I saw and evaluated the patient. I personally obtained the carlin and critical portions of the history and physical exam. I reviewed the resident's documentation and discussed the patient with the resident. I agree with the resident's medical decision making as documented in the resident's note. Ernestina Vogt, DO Normal [facility] HIV1 HIV2 AGASotero Rai 2023 HIV AG-AB SCREEN Non-Reactive Normal Non-Reactive [facility] Comment on above: Order Comment: HIV I nformation: ???[place] Rev. code 3701.243(E):This information has been disclosed to you from confidential records protected from disclosure by state law. ???You shall make no further disclosure of this information without the specific, written, and informed release of the individual to whom it pertains, or as otherwise permitted by state law. ???A general authorization for the release of medical or other information is not sufficient for the purpose of the release of HIV test results or diagnoses. Result Comment: No l aboratory evidence for HIV Infection. Negative result does not rule out acute HIV infection. If acute HIV infection is suspected, recommend ordering an HIV-1 RNA quanitification test. Performed By: #### h iv1 hiv2 agab janie, CH8 ####[facility] [id number] [place], [id number] Telephone Encounteron 2023 Technical Rep Authentication Interface Message Text Patient's calling in with in background. They are concerned as she is still bleeding a little. They have made multiple trips to ED and they live far away. They feel more needs to be done, as she can't eat and can't swallow. I explained the f/u appt on 07/20 will be for packing removal. They don't want to come for packing removal and nothing additional be done. I told them evaluation can be done and if cauterization is needed they can determine that. Patient advised to return to ED if bleeding continues/worsens. asking for call back from resident or nurses. PH#: [phone] Normal [facility] ABO RH TYPEon 07-15-2023 ABO and Rh group Nom (Bld) Blood group A Rh(D) positive Normal [facility] [employer] Comment on above: Performed By: #### A VIRGIL #### [facility] [address] [place] [address], [id number] ED Noteson 07-15-2023 Technical Rep Authentication Interface Message Text Patient stated she had two bouts of tarry stools while here tonight in the ED, MD Hammond notified. Normal [facility] ED Provider Noteson 07-15-19 Technical Rep Authentication Interface Message Text SM 57yo F transfer OSH epistaxis, mirocel placed, ENT obs until 9am Shared decision making implemented: Appropriate for dc home with trial of out pt therapy. Has amoxicillin home. Has outpatient follow up with ENT Patient/Guardian: - had the results of all tests/exam/diagnosi s explained to them - were given both verbal and written discharge instructions - were instructed of the importance of close follow up - educated on strict return precautions, to return to the ED if no improvement of symptoms or pain worsens or new symptoms arise - were told that close follow up is essential for good health and good outcomes - pt agreeable and acknowledges the plan moving forward , Normal [facility] [employer] Technical Rep Authentication Interface Message Text ---- Attestation signed by Kaden Vogt DO at 07/18/2023 7:33 AM ATTENDING NOTE I saw and evaluated the patient. I personally obtained the carlin and critical portions of the history and physical exam. I reviewed the resident's documentation and discussed the patient with the resident. I agree with the resident's medical decision making as documented in the resident's note. Kaden Vogt DO ---- EMERGENCY DEPARTMENT NOTE Chief Complaint Patient presents with Nose bleed Pt with nosebleed that started and resolved Thursday, reoccurred today. Pt was seen at [facility] ED x 3 today, multiple rhino rockets attempted, given Afrin without resolution. Pt referred for ENT. Actively producing clots, continuous bleeding. Review of external data: Care Everywhere office visit from yesterday reviewed documenting h/o GERD, pHTN with chronic RV dilation, atrial septal aneurysm and PFO s/p closure, RBBB. Presenting for epiastaxis x4d. Sent to ER for ENT assessment for significant bleeding Independent historians: at bedside provides collateral HPI: Julieta Villa is a 57 year old female with history of GERD, pHTN with chronic RV dilation, atrial septal aneurysm and PFO s/p closure, RBBB who presents as transfer for ENT evaluation of epistaxis. Patient reports on and off epistaxis from both nostrils for 4d. This morning had profuse bleeding from bilateral nares that did not radha despite pressure. Went to OSH ED in [place] where they attempted packing multiple times but bleeding did not stop. Currently feeling lightheaded but denies CP, SOB, N/V, F/C. PMH/PSH: No past medical history on file. No past surgical history on file. PHYSICAL EXAM: BP (!) 161/106 Pulse (!) 135 Temp 98.2 ???F (36.8 ???C) (Oral) Resp 20 SpO2 100% General: alert, NAD, nontoxic appearing HENT: Active oozing epistaxis from L nostril and blood trickling down posterior oropharynx. Eyes: Normal conjunctivae and sclerae. Cardiovascular: Tachycardic, regular, S1/S2 present and normal. No MGR. 2+ pulses throughout. Pulmonary: Normal work of breathing. CTAB Abdomen: Soft. NTND. No peritoneal findings. Skin: Warm, dry. Neuro: AOx3. GCS 15. No gross FND. ED COURSE: ED Course as of 07/15/23 0139 ThuJul 15, 2023 0016 BP(!): 161/106 [HANS] 0017 Temperature: 98.2 ???F (36.8 ???C) [HANS] 0017 Heart Rate(!): 135 [HANS] 0017 Respiratory Rate: 20 [HANS] 0017 SpO2: 100 % Mildly hypertensive. Afebrile. Tachycardic. Normal RR. Satting well on RA. [HANS] 0025 Discussed case with ENT who agree to evaluate and provide recs [HANS] 0113 Coags WNL [HANS] ED Course User Index [HANS] Elbert Hammond MD MDM: Patient nontoxic appearing. Initial VS significant for substantial tachycardia but normotensive and satting well on RA. Workup includes coags, T AND S, CBC. Given transferred for ENT evaluation with evidence of posterior epistaxis and symptoms c/w possible symptomatic anemia, urgently consulted ENT. ENT evaluated but had difficult time assessing location of bleed given unusual anatomy but had brisk posterior bleed on suctioning of clots so placed packing and mustache with plans to re-eval in AM. RN informed me of two dark tarry stools while in ED. Highly suspect 2/2 ingested epistaxis. On re-evaluation, patient had no further bleeding and vital signs significantly improved. Independent test interpretation: please see ED course for labs/imaging that I personally reviewed and interpreted. Discussions with other providers: see MDM and dispo Evaluated by EM attending Kaden Vogt IMPRESSION: Clinical Impression Diagnosis Comment Epistaxis [R04.0] Signed out to oncoming AM team pending ENT re-evaluation and final disposition Elbert Hammond MD Normal [facility] PARTIAL THROMBOPLASTIN TIMEo n 07-15-2023 aPTT Coag (Bld) [Time] 28 s Normal 25-37 Th e [facility] Comment on above: Performed By: #### A PTT, PT #### [facility] [address] [place] [address], PROTHROMBIN TIME AND INRon 0 07-15-2023 INR Coag (PPP) [Relative time] 1.08 {INR} Normal 0.90-1.10 [facility] Comment on above: Performed By: #### A PTT, PT #### [facility] [address] [place] [address], PT Coag (PPP) [Time] 12.1 s Normal 9.7-12.9 [facility] Comment on above: Performed By: #### A PTT, PT #### [facility] [address] [place] [address], TYPE AND SCREENon 07-15-2023 ABO and Rh group Nom (Bld) Blood group A Rh(D) positive Normal [facility] Comment on above: Performed By: #### T S #### [facility] [address] [place] [address], ABSC INT Negative Normal [facility] Comment on above: Performed By: #### T S #### [facility] [address] [place] [address], Telephone Encounteron 2023 Technical Rep Authentication Interface Message Text No PCP on file No preventive visits found Situation: Julieta Villa and calling Background: The patient granted verbal permission to discuss her case, including protected health information, with family/friends over the phone for this encounter. Assessment: states was seen in ED and has nasal tampon in place Started bleeding a few minutes ago. Applying constant pressure for last 10 minutes. States she has blood in the dish provided. Feeling light headed. Recommendation: AVS notes read to callers: Come back to the ED if you have any more significant nosebleeds, you start getting lightheaded or pass out, have chest pain, or get very short of breath. Caller agrees to return to ED Normal [facility] Alanine aminotransferase [En zymatic activity/volume] in Serum or PlasmaOrdered By: Agustin Pimentel on 05-28-2023 ALT [Catalytic activity/Vol] 26 U/L 7-52 [facility] Albumin [Mass/volume] in Ser um or Plasma by Bromocresol green (BCG) dye binding methoOrdered By: gAustin Pimentel on 05-28-2023 Albumin BCG dye [Mass/Vol] 4.4 g/dL 3.5-5.7 [facility] Alkaline phosphatase [Enzyma tic activity/volume] in Serum or PlasmaOrdered By: Agustin Pimentel on 05-28-2023 ALP [Catalytic activity/Vol] 76 U/L 34-104 [facility] Aspartate aminotransferase [ Enzymatic activity/volume] in Serum or PlasmaOrdered By: Agustin Pimentel on 05-28-2023 AST [Catalytic activity/Vol] 27 U/L 13-39 [facility] Automated erythrocytes count in urine sediment (number/area)Ordered By: Agustin Pimentel on 05-28-2023 RBC Auto (Urine sed) [#/Area] 1-2 [HPF] 0-4 [facility] Automated leukocytes count i n urine sediment (number/area)Ordered By: Agustin Pimentel on 05-28-2023 WBC Auto (Urine sed) [#/Area] 0-1 [HPF] 0-4 [facility] Basic Metabolic Panelon 05-14 Anion gap [Moles/Vol] 12.6 mmol/L Normal 6.0-15.0 Th e [facility] Comment on above: Performed By: #### C BC, HEPATIC, BMP, LIPASE #### [facility] [address] [place] [address] [place] Calcium [Mass/Vol] 8.7 mg/dL Normal 8.6-10.3 [facility] Comment on above: Performed By: #### C BC, HEPATIC, BMP, LIPASE #### [facility] [address] [place] [id number] [place] Chloride [Moles/Vol] 102 mmol/L Normal 98-107 [facility] Comment on above: Performed By: #### C BC, HEPATIC, BMP, LIPASE #### [facility] [address] [place] [id number] [place] CO2 [Moles/Vol] 26.0 mmol/L Normal 21.0-31.0 The [facility] Comment on above: Performed By: #### C BC, HEPATIC, BMP, LIPASE #### [facility] [address] Creatinine [Mass/Vol] 0.76 mg/dL Normal 0.60-1.20 [facility] Comment on above: Performed By: #### C BC, HEPATIC, BMP, LIPASE #### [facility] [address] Creatinine Clr Calc Pharmacy 104.33 Normal [facility] Comment on above: Performed By: #### C BC, HEPATIC, BMP, LIPASE #### [facility] [address] GFR/1.73 sq M.predicted MDRD (S/P/Bld) [Vol rate/Area] mL/min/{1.73_m2} Normal [facility] Comment on above: Performed By: #### C BC, HEPATIC, BMP, LIPASE #### [facility] [address] Glucose [Mass/Vol] 97 mg/dL Normal 70-100 [facility] Comment on above: Result Comment: [facility] Glucose Reference Range is dependent on time and content of last meal. Glucose of more than 200 mg/dL in a nonstressed, ambulatory subject supports the diagnosis of Diabetes Mellitus. ADA recommended reference range Performed By: #### C BC, HEPATIC, BMP, LIPASE #### [facility] [address] Potassium [Moles/Vol] 3.6 mmol/L Normal 3.5-5.1 [facility] Comment on above: Performed By: #### C BC, HEPATIC, BMP, LIPASE #### [facility] [address] [place] [address] [place] Sodium [Moles/Vol] 137 mmol/L Normal 136-145 [facility] Comment on above: Performed By: #### C BC, HEPATIC, BMP, LIPASE #### [facility] [address] Urea nitrogen [Mass/Vol] 8 mg/dL Normal 7-25 [facility] Comment on above: Performed By: #### C BC, HEPATIC, BMP, LIPASE #### [facility] [address] Basophils Auto (Bld) [#/Vol] Ordered By: Agustin Pimentel on 05-28-2023 Basophils (Bld) [#/Vol] 0.0 10*3/uL 0.0-0.2 [facility] Basophils/100 WBC Auto (Bld) Ordered By: Agustin Pimentel on 05-28-2023 Basophils/100 WBC (Bld) 1.1 % . [facility] Bilirubin Test strip Ql (U)O rdered By: Agustin Pimentel on 05-28-2023 Bilirubin Ql (U) Negative Negative [facility] Bilirubin.direct [Mass/volum e] in Serum or PlasmaOrdered By: Agustin Pimentel on 05-28-2023 Bilirubin.direct [Mass/Vol] 0.20 mg/dL 0.03-0.18 [facility] Bilirubin.total [Mass/volume ] in Serum or PlasmaOrdered By: Agustin Pimentel on 05-28-2023 Bilirubin [Mass/Vol] 0.6 mg/dL 0.3-1.0 [facility] Calcium [Mass/volume] in Ser um or PlasmaOrdered By: Agustin Pimentel on 05-28-2023 Calcium [Mass/Vol] 8.7 mg/dL 8.6-10.3 [facility] Carbon dioxide, total [Moles /volume] in Serum or PlasmaOrdered By: Agustin Pimentel on 05-28-2023 CO2 [Moles/Vol] 26.0 mmol/L 21.0-31.0 [facility] Chloride [Moles/volume] in S chris or PlasmaOrdered By: Agustin Pimentel on 05-28-2023 Chloride [Moles/Vol] 102 mmol/L 98-107 [facility] Clostridioides difficile tox in B tcdB gene [Presence] in Stool by BEE with probe deteOrdered By: Agustin Pimentel on 05-28-2023 C. difficile toxin B tcdB gene BEE+probe Ql (Stl) Negative Negative [facility] Comment on above: Testing performed by RT-PCR Clostridium Difficileon 05-14 Clostridium Difficile Negative Normal Negative [facility] Comment on above: Order Comment: > or = to 3 loose/watery stools in the last 24 HRS? Y Is patient on promotility agents or tube feeding? N Result Comment: Test ing performed by RT-PCR PERFORMED BY: [place] [address] PATHOLOGIST [employer]APN[employer] CAI M.D. Performed By: #### C DT #### [address] Color Auto (U)Ordered By: Eduardo Pimentel on 05-28-2023 Color (U) Yellow Yellow [facility] Complete Blood Count Auto Di ffon 05-28-2023 Basophils (Bld) [#/Vol] 0.0 10*3/uL Normal 0.0-0.2 [facility] Comment on above: Result Comment: PERF ORMED BY: [place] [address] PATHOLOGIST [employer] CAI M.D. Performed By: #### C BC, HEPATIC, BMP, LIPASE #### [place] [address] [place] Basophils/100 WBC (Bld) 1.1 % Normal . T jaqueline [facility] Comment on above: Performed By: #### C BC, HEPATIC, BMP, LIPASE #### [place] [address] [place] Eosinophils (Bld) [#/Vol] 0.0 10*3/uL Normal 0.0-0.45 [facility] Comment on above: Performed By: #### C BC, HEPATIC, BMP, LIPASE #### [place] [address] [place] Eosinophils/100 WBC (Bld) 0.9 % Normal . [facility] Comment on above: Performed By: #### C BC, HEPATIC, BMP, LIPASE #### [address] Erythrocyte distribution width (RBC) [Ratio] 13.0 % Normal 11.9-15.3 The [facility] Comment on above: Performed By: #### C BC, HEPATIC, BMP, LIPASE #### [address] Hematocrit (Bld) [Volume fraction] 39.0 % Normal 34.0-46.4 [facility] Comment on above: Performed By: #### C BC, HEPATIC, BMP, LIPASE #### [address] Hemoglobin (Bld) [Mass/Vol] 13.5 g/dL Normal 11.8-15.4 [facility] Comment on above: Performed By: #### C BC, HEPATIC, BMP, LIPASE #### [address] Lymphocytes (Bld) [#/Vol] 0.5 10*3/uL Low 1.00-4.8 [facility] Comment on above: Performed By: #### C BC, HEPATIC, BMP, LIPASE #### [address] Lymphocytes/100 WBC (Bld) 22.7 % Normal . [facility] Comment on above: Performed By: #### C BC, HEPATIC, BMP, LIPASE #### [address] MCH (RBC) [Entitic mass] 29.8 pg Normal 24.7-34.3 [facility] Comment on above: Performed By: #### C BC, HEPATIC, BMP, LIPASE #### [address] MCV (RBC) [Entitic vol] 86.0 fL Normal 80-100 T [facility] Comment on above: Performed By: #### C BC, HEPATIC, BMP, LIPASE #### [address] Mean Corpuscular HGB Conc 34.7 g/dL Normal 32.0-35.0 [facility] Comment on above: Performed By: #### C BC, HEPATIC, BMP, LIPASE #### [address] Monocytes (Bld) [#/Vol] 0.2 10*3/uL Normal 0.0-0.8 [facility] Comment on above: Performed By: #### C BC, HEPATIC, BMP, LIPASE #### [address] Monocytes/100 WBC (Bld) 25.29 % High 0.00-20.00 [facility] Comment on above: Result Comment: For adults in ED, MDW > 20.0 may be associated with a higher risk of sepsis during the first 12 hrs of hospital admission Performed By: #### C BC, HEPATIC, BMP, LIPASE #### [address] Monocytes/100 WBC (Bld) 9.8 % Normal . [facility] Comment on above: Performed By: #### C BC, HEPATIC, BMP, LIPASE #### [address] Neutrophils (Bld) [#/Vol] 1.5 10*3/uL Low 1.8-7.7 [facility] Comment on above: Performed By: #### C BC, HEPATIC, BMP, LIPASE #### [address] Neutrophils/100 WBC (Bld) 65.5 % Normal . [facility] Comment on above: Performed By: #### C BC, HEPATIC, BMP, LIPASE #### [address] NRBC% 0.2 /100{WBC} Normal 0-0.5 The [facility] Comment on above: Performed By: #### C BC, HEPATIC, BMP, LIPASE #### [address] Platelet mean volume (Bld) [Entitic vol] 7.8 fL Normal 6.3-10.7 The [facility] Comment on above: Performed By: #### C BC, HEPATIC, BMP, LIPASE #### [place] [address] [place] Platelets (Bld) [#/Vol] 163 10*3/uL Normal 150-450 [facility] Comment on above: Performed By: #### C BC, HEPATIC, BMP, LIPASE #### [facility] [address] RBC (Bld) [#/Vol] 4.54 10*6/uL Normal 3.60-5.00 [facility] Comment on above: Performed By: #### C BC, HEPATIC, BMP, LIPASE #### [facility] [address] [place] [address] [place] WBC (Bld) [#/Vol] 2.2 10*3/uL Low 3.8-11.6 [facility] Comment on above: Performed By: #### C BC, HEPATIC, BMP, LIPASE #### [address] Creatinine [Mass/volume] in Serum or PlasmaOrdered By: Agustin Pimentel on 05-28-2023 Creatinine [Mass/Vol] 0.76 mg/dL 0.60-1.20 [facility] Dipstick and Microscopicon 0 05-28-2023 Appearance (U) Clear Normal Clear [facility] Comment on above: Order Comment: Name Collection Type:: Clean-Voided Midstream Performed By: #### A DDONUAPLUS #### [place] [address] [place] Bacteria,Urine None Seen Normal None Seen [facility] Comment on above: Order Comment: Name Collection Type:: Clean-Voided Midstream Performed By: #### A DDONUAPLUS #### [place] [address] [place] Bilirubin,Urine Negative Normal Negative The [facility] Comment on above: Order Comment: Name Collection Type:: Clean-Voided Midstream Performed By: #### A DDONUAPLUS #### [place] [address] [place] Color (U) Yellow Normal Yellow [facility] Comment on above: Order Comment: Name Collection Type:: Clean-Voided Midstream Performed By: #### A DDONUAPLUS #### [facility] [address] [place] [address] [place] Glucose Ql (U) Normal Normal Normal [facility] Comment on above: Order Comment: Name Collection Type:: Clean-Voided Midstream Performed By: #### A DDONUAPLUS #### [facility] [address] [place] [address] [place] Hyaline Casts,Urine 0-8 Normal 0-8 [facility] Comment on above: Order Comment: Name Collection Type:: Clean-Voided Midstream Result Comment: PERF ORMED BY: [place] [address] PATHOLOGIST [employer]APN[employer] CAI M.D. Performed By: #### A DDONUAPLUS #### [address] Ketones Ql (U) 3+ High Negative [facility] Comment on above: Order Comment: Name Collection Type:: Clean-Voided Midstream Performed By: #### A DDONUAPLUS #### [place] [address] [place] Leukocyte esterase Test strip Ql (U) Negative Normal Negative [facility] Comment on above: Order Comment: Name Collection Type:: Clean-Voided Midstream Performed By: #### A DDONUAPLUS #### [place] [address] [place] Nitrite,Urine Negative Normal Negative The [facility] Comment on above: Order Comment: Name Collection Type:: Clean-Voided Midstream Performed By: #### A DDONUAPLUS #### [place] [address] [place] Occult Blood,Urine Trace High Negative [facility] Comment on above: Order Comment: Name Collection Type:: Clean-Voided Midstream Result Comment: PERF ORMED BY: [place] [address] PATHOLOGIST [employer] SWAPN[employer] CAI M.D. Performed By: #### A DDONUAPLUS #### [address] pH (U) 6.0 [pH] Normal 5.0-9.0 [facility] Comment on above: Order Comment: Name Collection Type:: Clean-Voided Midstream Performed By: #### A DDONUAPLUS #### [address] Protein,Urine Negative Normal Negative [facility] Comment on above: Order Comment: Name Collection Type:: Clean-Voided Midstream Performed By: #### A DDONUAPLUS #### [address] RBC,Urine 1-2 Normal 0-4 [facility] Comment on above: Order Comment: Name Collection Type:: Clean-Voided Midstream Performed By: #### A DDONUAPLUS #### [address] Specificy [place],Urine 1.011 Normal 1.001-1.030 [facility] Comment on above: Order Comment: Name Collection Type:: Clean-Voided Midstream Performed By: #### A DDONUAPLUS #### [address] Squamous Epithelial Cell,Urine 0-1 Normal 0-2 [facility] Comment on above: Order Comment: Name Collection Type:: Clean-Voided Midstream Performed By: #### A DDONUAPLUS #### [address] Urobilinogen,Urine Normal Normal Normal [facility] [facility] Comment on above: Order Comment: Name Collection Type:: Clean-Voided Midstream Performed By: #### A DDONUAPLUS #### [place] [address] [place] WBC LM.HPF (Urine sed) [#/Area] 0 /[HPF] Normal 0-4 [facility] Comment on above: Order Comment: Name Collection Type:: Clean-Voided Midstream Performed By: #### A DDONUAPLUS #### [address] [place] [address] [place] Eosinophils Auto (Bld) [#/Vo l]Ordered By: Agustin Pimentel on 05-28-2023 Eosinophils (Bld) [#/Vol] 0.0 10*3/uL 0.0-0.45 [facility] Eosinophils/100 WBC Auto (Bl d)Ordered By: Agustin Pimentel on 05-28-2023 Eosinophils/100 WBC (Bld) 0.9 % . [facility] Erythrocyte distribution wid th Auto (RBC) [Ratio]Ordered By: Agustin Pimentel on 05-28-2023 Erythrocyte distribution width (RBC) [Ratio] 13.0 % 11.9-15.3 [facility] Globulin Calc (S) [Mass/Vol] Ordered By: Agustin Pimnetel on 05-28-2023 Globulin (S) [Mass/Vol] 3.0 g/dL [facility] Glucose [Mass/volume] in Ser um or PlasmaOrdered By: Agustin Pimentel on 05-28-2023 Glucose [Mass/Vol] 97 mg/dL 70-100 [facility] Comment on above: ADA recommended refe rence rangeRandom Glucose Reference Range is dependent on time and content of last meal. Glucose of more than 200 mg/dL in a nonstressed, ambulatory subject supports the diagnosis of Diabetes Mellitus. Hematocrit Auto (Bld) [Volum e fraction]Ordered By: Agustin Pimentel on 05-28-2023 Hematocrit (Bld) [Volume fraction] 39.0 % 34.0-46.4 [facility] Hemoglobin [Mass/volume] in BloodOrdered By: Agustin Pimentel on 05-28-2023 Hemoglobin (Bld) [Mass/Vol] 13.5 g/dL 11.8-15.4 [facility] Hepatic Panelon 05-28-2023 Albumin [Mass/Vol] 4.4 g/dL Normal 3.5-5.7 [facility] Comment on above: Performed By: #### C BC, HEPATIC, BMP, LIPASE #### [facility] [address] [place] [address] [facility] Albumin/Globulin [Mass ratio] 1.5 {ratio} Normal [facility] Comment on above: Performed By: #### C BC, HEPATIC, BMP, LIPASE #### [facility] [address] ALP [Catalytic activity/Vol] 76 U/L Normal 34-104 [facility] Comment on above: Performed By: #### C BC, HEPATIC, BMP, LIPASE #### [address] ALT [Catalytic activity/Vol] 26 U/L Normal 7-52 [facility] Comment on above: Performed By: #### C BC, HEPATIC, BMP, LIPASE #### [address] AST [Catalytic activity/Vol] 27 U/L Normal 13-39 [facility] Comment on above: Performed By: #### C BC, HEPATIC, BMP, LIPASE #### [address] Bilirubin [Mass/Vol] 0.6 mg/dL Normal 0.3-1.0 [facility] Comment on above: Performed By: #### C BC, HEPATIC, BMP, LIPASE #### [address] Bilirubin,Indirect 0.4 mg/dL Normal [facility] Comment on above: Performed By: #### C BC, HEPATIC, BMP, LIPASE #### [address] Bilirubin.indirect [Mass/Vol] 0.20 mg/dL High 0.03-0.18 [facility] Comment on above: Performed By: #### C BC, HEPATIC, BMP, LIPASE #### [place] [address] [place] Globulin (S) [Mass/Vol] 3.0 g/dL Normal [facility] Comment on above: Performed By: #### C BC, HEPATIC, BMP, LIPASE #### [address] Protein [Mass/Vol] 7.4 g/dL Normal 6.4-8.9 [facility] Comment on above: Performed By: #### C BC, HEPATIC, BMP, LIPASE #### [facility] [address] Ketones Auto test strip (U) [Mass/Vol]Ordered By: Agustin Pimentel on 05-28-2023 Ketones (U) [Mass/Vol] 3+ Negative Fi [facility] Laboratory - UrinalysisOrder ed By: Agustin Pimentel on 05-28-2023 Hyaline casts LM Ql (Urine sed) 0-8 [LPF] 0-8 [facility] Leukocytes [#/volume] correc zainab for nucleated erythrocytes in Blood by Automated counOrdered By: Agustin Pimentel on 05-28-2023 WBC corrected for nucl RBC Auto (Bld) [#/Vol] 2.2 10*3/uL 3.8-11.6 [facility] Lipaseon 05-28-2023 Lipase [Catalytic activity/Vol] 11.0 U/L Normal 11.0-82.0 [facility] Comment on above: Result Comment: PERF ORMED BY: [place] [address] PATHOLOGIST PLANT BREEDER SWAPNIL CAI M.D. Performed By: #### C BC, HEPATIC, BMP, LIPASE #### [facility] [address] [place] [address] Lipase [Enzymatic activity/v olume] in Serum or PlasmaOrdered By: Agustin Pimentel on 05-28-2023 Lipase [Catalytic activity/Vol] 11.0 U/L 11.0-82.0 [facility] Lymphocytes Auto (Bld) [#/Vo l]Ordered By: Agustin Pimentel on 05-28-2023 Lymphocytes (Bld) [#/Vol] 0.5 10*3/uL 1.00-4.8 [facility] Lymphocytes/100 WBC Auto (Bl d)Ordered By: Agustin Pimentel on 05-28-2023 Lymphocytes/100 WBC (Bld) 22.7 % . [facility] MCH Auto (RBC) [Entitic mass ]Ordered By: Agustin Pimentel on 05-28-2023 MCH (RBC) [Entitic mass] 29.8 pg 24.7-34.3 [facility] MCHC Auto (RBC) [Mass/Vol]Or dered By: Agustin Pimentel on 05-28-2023 MCHC (RBC) [Mass/Vol] 34.7 g/dL 32.0-35.0 [facility] MCV Auto (RBC) [Entitic vol] Ordered By: Agustin Pimentel on 05-28-2023 MCV (RBC) [Entitic vol] 86.0 fL 80-100 [facility] Monocyte distribution width [Entitic volume] in Blood by AutomatedOrdered By: Agustin Pimentel on 05-28-2023 Monocyte distribution width Auto (Bld) [Entitic vol] 25.29 % 0.00-20.00 [facility] Comment on above: For adults in ED, MD W > 20.0 may be associated with a higher risk of sepsis during the first 12 hrs of hospital admission Monocytes Auto (Bld) [#/Vol] Ordered By: Agustin Pimentel on 05-28-2023 Monocytes (Bld) [#/Vol] 0.2 10*3/uL 0.0-0.8 [facility] Monocytes/100 WBC Auto (Bld) Ordered By: Agustin Pimentel on 05-28-2023 Monocytes/100 WBC (Bld) 9.8 % . [facility] Neutrophils Auto (Bld) [#/Vo l]Ordered By: Agustin Pimentel on 05-28-2023 Neutrophils (Bld) [#/Vol] 1.5 10*3/uL 1.8-7.7 [facility] Neutrophils/100 WBC Auto (Bl d)Ordered By: Agustin Pimentel on 05-28-2023 Neutrophils/100 WBC (Bld) 65.5 % . [facility] Nitrite Test strip Ql (U)Ord ered By: Agustin Pimentel on 05-28-2023 Nitrite Ql (U) Negative Negative [facility] No Panel InformationOrdered By: Agustin Pimentel on 05-28-2023 Estimated GFR (CKD-EPI) > 60.0 mL/Min [facility] Creatinine Clearance (Chem 104.33 [facility] Nucleated erythrocytes [Pres ence] in Blood by Automated countOrdered By: Agustin Pimentel on 05-28-2023 Nucleated RBC Auto Ql (Bld) 0.2 /100{WBC} 0-0.5 [facility] Platelet mean volume Auto (B ld) [Entitic vol]Ordered By: Agustin Pimentel on 05-28-2023 Platelet mean volume (Bld) [Entitic vol] 7.8 fL 6.3-10.7 [facility] Platelets Auto (Bld) [#/Vol] Ordered By: Agustin Pimentel on 05-28-2023 Platelets (Bld) [#/Vol] 163 10*3/uL 150-450 [facility] Potassium [Moles/volume] in Serum or PlasmaOrdered By: Agustni Pimentel on 05-28-2023 Potassium [Moles/Vol] 3.6 mmol/L 3.5-5.1 [facility] Protein Auto test strip (U) [Mass/Vol]Ordered By: Agustin Pimentel on 05-28-2023 Protein (U) [Mass/Vol] Negative Negative [facility] Protein [Mass/volume] in Ser um or PlasmaOrdered By: Agustin Pmientel on 05-28-2023 Protein [Mass/Vol] 7.4 g/dL 6.4-8.9 [facility] RBC Auto (Bld) [#/Vol]Ordere d By: Agustin Pimentel on 05-28-2023 RBC (Bld) [#/Vol] 4.54 10*6/uL 3.60-5.00 [facility] Serum or plasma albumin/glob ulin mass ratioOrdered By: Agustin Pimentel on 05-28-2023 Albumin/Globulin [Mass ratio] 1.5 {ratio} [facility] Serum or plasma anion gap de terminationOrdered By: Agustin Pimentel on 05-28-2023 Anion gap [Moles/Vol] 12.6 mmol/L 6.0-15.0 [facility] Serum or plasma non-glucuron idated bilirubin measurement (mass/volume)Ordered By: Agustin Pimentel on 05-28-2023 Bilirubin.indirect [Mass/Vol] 0.4 mg/dL [facility] Sodium [Moles/volume] in Ser um or PlasmaOrdered By: Agustin Pimentel on 05-28-2023 Sodium [Moles/Vol] 137 mmol/L 136-145 [facility] Specific gravity Auto test s trip (U) [Rel density]Ordered By: Agustin Pimentel on 05-28-2023 Specific gravity (U) [Rel density] 1.011 1.001-1.030 [facility] Squamous epithelial cells de tection in urine sediment by light microscopyOrdered By: Agustin Pimentel on 05-28-2023 Epithelial cells.squamous LM Ql (Urine sed) 0-1 [HPF] 0-2 [facility] Urea nitrogen [Mass/volume] in Serum or PlasmaOrdered By: Agustin Pimentel on 05-28-2023 Urea nitrogen [Mass/Vol] 8 mg/dL 7-25 [facility] Urine bacteria detection by automated methodOrdered By: Agustin Pimentel on 05-28-2023 Bacteria Auto Ql (U) None seen None Seen [facility] Urine clarity by refractomet ry automatedOrdered By: Agustin Pimentel on 05-28-2023 Clarity Refractometry automated (U) Clear Clear [facility] Urine glucose measurement by automated test strip (mass/volume)Ordered By: Agustin Pimentel on 05-28-2023 Glucose Auto test strip (U) [Mass/Vol] Normal mg/dL Normal [facility] Urine hemoglobin detection b y automated test stripOrdered By: Agustin Pimentel on 05-28-2023 Hemoglobin Auto test strip Ql (U) Trace Negative [facility] Urine leukocyte esterase det ection by automated test stripOrdered By: Agustin Pimentel on 05-28-2023 Leukocyte esterase Auto test strip Ql (U) Negative Negative [facility] Urobilinogen Auto test strip (U) [Mass/Vol]Ordered By: Agustin Pimentel on 05-28-2023 Urobilinogen (U) [Mass/Vol] Normal mg/dL Normal [facility] WBC Auto (Bld) [#/Vol]Ordere d By: Agustin Pimentel on 05-28-2023 WBC (Bld) [#/Vol] 2.2 10*3/uL 3.8-11.6 [facility] pH Auto test strip (U)Ordere d By: Agustin Pimentel on 05-28-2023 pH (U) 6.0 [pH] 5.0-9.0 [facility] Echocardiogramon 12-18-[address], [address], [place] [address] TRANSTHORACIC ECHOCARDIOGRAM REPORT Patient Name: JULIETA VILLA Reading Physician: [id number] Kieran Kong DO Study Date: 12/18/2020 Referring Physician: [id number] TODD ROSALES MRN/PID: [id number] PCP: Marie Nielson Accession/Order#: [id number] Department Location: [facility] Date of : 1965 Fellow: Gender: F Nurse: Admit Date: Clerk Operator: Sonia Santillan RDCS, RVT Height: 165.10 cm CC Report to: Weight: 102.06 kg Study Type: Echocardiogram BSA: 2.08 m2 Blood Pressure: 128 /84 mmHg Diagnosis/ICD: Q21.1-Atrial septal defect (ASD); 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 Indication: Abnormal EKG-RBBB, Former Smoker, Obesity Procedure/CPT: Echo Complete w Full [id number] Study Detail: The following Echo studies were performed: 2D, M-Mode, Doppler and color flow. Agitated saline used as a contrast agent for intraseptal flow evaluation. PHYSICIAN INTERPRETATION: Left Ventricle: The left ventricular systolic function is normal, with an estimated ejection fraction of 60-65%. There are no regional wall motion abnormalities. The left ventricular cavity size is normal. There is no evidence of left ventricular hypertrophy. Spectral Doppler shows an impaired relaxation pattern of left ventricular diastolic filling. There is no definite left ventricular thrombus visualized. Normal wall motion. Left Atrium: The left atrium is normal in size. Right Ventricle: The right ventricle is normal in size. There is normal right ventricular global systolic function. Right Atrium: The right atrium is normal in size. Aortic Valve: The aortic valve appears structurally normal. There is mild aortic valve thickening. There is no evidence of aortic valve stenosis. There is trivial aortic valve regurgitation. The peak instantaneous gradient of the aortic valve is 12.5 mmHg. The mean gradient of the aortic valve is 7.0 mmHg. Mitral Valve: The mitral valve is normal in structure. There is no evidence of mitral valve stenosis. The doppler estimated mean and peak diastolic pressure gradients are 3.0 mmHg and 8.0 mmHg respectively. There is trace mitral valve regurgitation. Tricuspid Valve: The tricuspid valve is structurally normal. There is trace tricuspid regurgitation. Pulmonic Valve: The pulmonic valve is structurally normal. There is trace pulmonic valve regurgitation. Pericardium: There is no pericardial effusion noted. Aorta: The aortic root is normal. Systemic Veins: The inferior vena cava appears to be of normal size. CONCLUSIONS: 1. The left ventricular systolic function is normal with a 60-65% estimated ejection fraction. 2. No left ventricular thrombus visualized. 3. Spectral Doppler shows an impaired relaxation pattern of left ventricular diastolic filling. 4. There is no evidence of left ventricular hypertrophy. 5. Aortic valve stenosis is not present. 6. Compared to echo of 09/19/19, no significant change is seen. QUANTITATIVE DATA SUMMARY: 2D MEASUREMENTS: Normal Ranges: Ao Root d: 3.10 cm (2.0-3.7cm) LAs: 4.00 cm (2.7-4.0cm) RVIDd: 3.60 cm (0.9-3.6cm) IVSd: 0.90 cm (0.6-1.1cm) LVPWd: 0.70 cm (0.6-1.1cm) LVIDd: 5.10 cm (3.9-5.9cm) LVIDs: 3.00 cm LV Mass Index: 67.5 g/m2 LV % FS 41.2 % LV SYSTOLIC FUNCTION BY 2D PLANIMETRY (MOD): Normal Ranges: EF-A4C View: 69.3 % (>55%) LV DIASTOLIC FUNCTION: Normal Ranges: MV Peak E: 1.11 m/s (0.7-1.2 m/s) MV Peak A: 1.18 m/s (0.42-0.7 m/s) E/A Ratio: 0.94 (1.0-2.2) MV lateral e' 0.08 m/s MV medial e' 0.06 m/s E/e' Ratio: 14.80 (<8.0) MITRAL VALVE: Normal Ranges: MV Vmax: 1.41 m/s (<1.3m/s) MV peak P.0 mmHg (<5mmHg) MV mean P.0 mmHg (<48mmHg) MITRAL INSUFFICIENCY: Normal Ranges: MR Vmax: 414.00 cm/s AORTIC VALVE: Normal Ranges: AoV Vmax: 1.77 m/s (<1.7m/s) AoV Peak P.5 mmHg (<20mmHg) AoV Mean P.0 mmHg (1.7-11.5mmHg) LVOT Max Shin: 1.18 m/s (<1.1m/s) AoV VTI: 41.00 cm (18-25cm) LVOT VTI: 25.80 cm LVOT Diameter: 2.40 cm (1.8-2.4cm) AoV Area, VTI: 2.85 cm2 (2.5-5.5cm2) AoV Area,Vmax: 3.02 cm2 (2.5-4.5cm2) AoV Dimensionless Index: 0.63 AORTIC INSUFFICIENCY: AI Vmax: 2.98 m/s AI Half-time: 529 msec AI Decel Rate: 210.50 cm/s2 TRICUSPID VALVE/RVSP: Normal Ranges: Peak TR Velocity: 2.12 m/s RV Syst Pressure: 21.0 mmHg (< 30mmHg) PULMONIC VALVE: Normal Ranges: PV Max Shin: 0.9 m/s (0.6-0.9m/s) PV Max P.2 mmHg [id number] Kieran Kong Electronically signed on 12/19/2020 at 1:45:17 PM Final Normal [facility] Vital Signs Date Time Vital Sign Value Performing Clinician Facility 07-21-2023 14:20-0400 Body temperature 98.71 [degF] Ent Resident [facility] 07-21-2023 14:20-0400 Heart rate 73 /min Ent Resident [facility] 07-21-2023 14:20-0400 SaO2% (BldA) [Mass fraction] 97 % Ent Resident [facility] 07-13-2023 14:00-0400 Body temperature 97.1 [degF] MD Marie Nielson Work Phone: [facility] 07-13-2023 14:00-0400 Diastolic blood pressure 90 mm[Hg] MD Marie Nielson Work Phone: [facility] 07-13-2023 14:00-0400 Heart rate 78 /min MD Marie Nielson Work Phone: [facility] 07-13-2023 14:00-0400 Respiratory rate 18 /min MD Marie Nielson Work Phone: [facility] 07-13-2023 14:00-0400 SaO2% (BldA) [Mass fraction] 96 % MD Marie Nielson Work Phone: [facility] 07-13-2023 14:00-0400 Systolic blood pressure 168 mm[Hg] MD Marie Nielson Work Phone: [facility] 07-13-2023 01:56-0400 Body height 165.1 cm MD Marie Nielson Work Phone: [facility] 07-13-2023 01:56-0400 Body weight 116 kg MD Marie Nielson Work Phone: [facility] 05-28-2023 10:39-0500 Diastolic blood pressure 96 mm[Hg] MD Marie Nielson Work Phone: [facility] 05-28-2023 10:39-0500 Heart rate 68 /min MD Marie Nielson Work Phone: [facility] 05-28-2023 10:39-0500 Respiratory rate 16 /min MD Marie Nielson Work Phone: [facility] 05-28-2023 10:39-0500 SaO2% (BldA) [Mass fraction] 98 % MD Marie Nielson Work Phone: [facility] 05-28-2023 10:39-0500 Systolic blood pressure 167 mm[Hg] MD Marie Nielson Work Phone: [facility] 05-28-2023 08:40-0500 Body height 165.1 cm MD Marie Nielson Work Phone: [facility] 05-28-2023 08:40-0500 Body temperature 98.5 [degF] MD Marie Nielson Work Phone: [facility] 05-28-2023 08:40-0500 Body weight 114.4 kg MD Marie Nielson Work Phone: [facility] Encounters Encounter Date Encounter Type Care Provider Facility Start: 10-27-2023 End: 10-27-2023 ambulatory KENNA HILLVELY Not Available Start: 08-26-2023 End: 08-26-2023 ambulatory KENNA Olivares LAURA Not Available Start: 08-18-2023 End: 08-18-2023 ambulatory KENNA Olivares LAURA Not Available Start: 07-21-2023 End: 07-23-2023 ambulatory UNKNOWN PROVIDER Facility:[facility] Start: 07-21-2023 End: 07-23-2023 Office outpatient new 30 minutes Ent Resident [facility] Otolaryngology (ENT) Comment on above: Epistaxis (Primary D x) Start: 07-16-2023 End: 07-16-2023 Emergency department patient visit ERNESTINA SID Facility:[facility] Start: 07-15-2023 End: 07-15-2023 Emergency department patient visit [facility]OMEZ [facility] Start: 07-14-2023 End: 07-14-2023 ambulatory KENNA SANCHEZ Not Available Start: 07-13-2023 End: 07-13-2023 Emergency department patient visit Med Elise Owens Facility:[facility] Start: 07-13-2023 End: 07-13-2023 Emergency department patient visit MD Marie Nielson Work Phone: [facility] Work Phone: Start: 07-09-2023 End: 07-09-2023 ambulatory LAURA A FELTER Not Available Start: 06-09-2023 End: 06-09-2023 ambulatory LAURA A FELTER Not Available Start: 06-02-2023 End: 06-02-2023 ambulatory KENNA Olivares LAURA Not Available Start: 05-28-2023 End: 05-28-2023 Emergency department patient visit Agustin Pimentel Facility:[facility] Start: 05-28-2023 End: 05-28-2023 Emergency department patient visit MD Marie Nielson Work Phone: [facility] Work Phone: Start: 03-24-2023 End: 03-24-2023 ambulatory NICKSABRINA NIELSON Not Available Start: 03-16-2023 End: 03-16-2023 ambulatory ELIECER NORTON Not Available Start: 07-13-2022 End: 07-13-[address] MARIE NIELSON Facility: Plan of Treatment Date Care Activity Detail Author Start: 06-04-2028 Cholesterol [Mass/volume] in Serum or Plasma Cholesterol [facility] Start: 05-28-2023 [facility] Start: 01-05-2020 Screening for malignant neoplasm of breast Mammography [facility] Start: 2016 Shingles (RZV) Vaccine (1 of 2) Shingles (RZV) Vaccine (1 of 2) [facility] Start: 09-11-2014 Annual wellness visit Annual Wellness Visit (G0438) [facility] Start: 09-13-2011 Screening for malignant neoplasm of colon [facility] Start: 09-13-1987 Screening for malignant neoplasm of cervix Pap Smear [facility] Start: 1985 Hepatitis A (HAV) Vaccine (optional start 19+ years) Hepatitis A (HAV) Vaccine (optional start 19+ years) [facility] Start: 1984 Hepatitis C screening Hepatitis C Antibody [facility] Start: 1984 Tetanus + diphtheria + acellular pertussis vaccine (product) Tdap Booster [facility] Start: 03-14-1967 COVID-19 Vaccine (#1) COVID-19 Vaccine (#1) [facility] Start: 1966 Hepatitis B vaccination Hepatitis B (HBV) Vaccine (1 of 3 - 3-dose series) [facility] Start: 1966 Screening for malignant neoplasm of colon [facility] Bacterial cytolethal distending toxin cdt gene [Presence] in Unspecified specimen by BEE with probe detection [facility] Patient Education Diarrhea, Adult ED [facility] Work Phone: Patient referral [facility] Work Phone: Payers Date Payer Category Payer Private Health Insurance [facility] UMR [id number] 2023-Present PPO [id number] 2023 Self-pay [id number] 2023 Unknown COMMERCIAL INSUR ANCE - OTHER COMMERCIAL INSURANCE OTHER [id number] 2023-Present [phone] [address] [address] [place] [address] Indemnity [id number] 2023 Unknown [id number] 2023 Unknown [id number] 2013 Medicare MEDICARE MEDICAR E PART A & B [id number] 2013-Present [address] [place] [address] Medicare [id number] 1966 Unknown [id number] [id number]. 2.593 1966 Unknown [id number] 2.16840.1.730641.3.579. 2.732 1966 Unknown [id number] 2.16840.1.040756.3.579. 2.732 1966 Unknown [id number] 2.16.840.1.720456.3.579. 2.732 1966 Unknown [id number] 2.16.840.1.655323.3.579. 2.1259 1966 Unknown [id number] 2.16.840.1.303171.3.579. 2.1259 1966 Unknown [id number] 2.16.840.1.247007.3.579. 2.1259 1966 Unknown [id number] 2.16.840.1.701037.3.579. 2.9 1966 Unknown [id number] 2.16.840.1.316773.3.579. 2.9 1966 Unknown [id number] 2.16.840.1.914601.3.579. 2.9 1966 Unknown [id number] 2.16.840.1.949311.3.579. 2.1258 1966 Unknown [id number] 2.16.840.1.317957.3.579. 2.1258 1966 Unknown [id number] 2.16.840.1.427977.3.579. 2.1259 1958 Medicare [id number] 1959 Unknown [id number] Unknown [id number] 2.16.840.1.406859.3.579. 2.531 Unknown [id number] 2.16.840.1.553483.3.579. 2.531 Social History Date Type Detail Facility Start: 05-28-2023 Tobacco smoking status [facility] Ex-smoker (finding) [facility] Start: 1965 Sex Assigned At Female [facility] Start: 07-13-2023 Tobacco smoking status [facility] Never smoked tobacco (finding) [facility] Tobacco smoking status [facility] Tobacco smoking consumption unknown [facility] Start: 1965 Sex Assigned At Not on file [facility] Gender identity Not on file [facility] NEGATED: Highlighted row [facility] History of Present illness Narrative 07-23-2023 Dieudonne Kinney MD - 07/23/2023 4:42 PM Suzy Andrews - 07/21/2023 2:19 PM Sher Quintanilla DO - 07/21/2023 2:09 PM EDT Note Date & Type Note Facility 07-23-2023 History of Presen t illness Narrative Seen and examined. Initial history and findings as in Dr. Acevedo's Note Teaching Physician Note: I saw and evaluated the patient. I personally obtained the carlin and critical portions of the history and physical exam. I reviewed the resident's documentation and discussed the patient with the resident. I agree with the resident's medical decision making as documented in the resident's note. Dieudonne Kinney MD Patient was identified by name and date of . Suzy Cuadra Patient in exam room, vital signs taken, ready for MD exam. ENT New Patient Clinic Note Name: Julieta Villa : 1965 PCP: No primary care provider on file. CC: Nose bleed History of Present Illness: Julieta Villa is a 57 year old female who presents to clinic today for initial evaluation of Epistaxis. She initially presented to ED on 07/14/23 for nose bleed of right nares unresolving with rhino rockets. At the time she was noted to have elevated BP 161 and on ASA 81 daily. Right merocel placed, afrin prescribed 3 days, nasal saline, and keflex. Bleeding reoccured 07/14 in emergency room and was resolved with angiocath around packing and pressure. Again, her pressure was elevated at that time 144 systolic. This was her first nose bleed since childhood and denies any trauma to the nose. She normally follows with Dr. Floyd in [place] but has elected to come here for packing removal. Since the event she has not had anymore bleeding. She has completed her antibiotics as prescribed. She has stopped using afrin 2 days ago. No other complaints or pertinent history at this time. Review of Systems: A complete 14 point review of systems was obtained and was negative other than what is stated in the history of present illness. Past Medical History: This patient has no past medical history on file. Past Surgical History: This patient has no past surgical history on file. Family History: This patient's family history is not on file. Medications: No current outpatient medications Allergies: Allergies Allergen Reactions Sulfa Drugs Cross Reactors Rash and Diarrhea Social History: Physical Examination: Vitals: There were no vitals taken for this visit. GENERAL: Appears well developed, well nourished RESPIRATION: Breathing comfortably on room air, no stridor CV: No clubbing/cyanosis/edema in hands EYES: EOM Intact, sclera normal NEURO: AAOx3, Cranial nerves grossly intact HEAD AND FACE: Skin with no masses or lesions EARS: Normal external ears, external auditory canals, and TMs to otoscopy. Conversational hearing grossly intact. NOSE: External nose midline, anterior rhinoscopy is normal with limited visualization to the anterior aspect of the interior turbinates, no lesions noted, right merocel packing removed, right deviated septum with irritated mucosa on anterior right septum, no active bleeding ORAL CAVITY/OROPHARYNX/LIPS: Normal mucous membranes, normal floor of mouth/tongue/OP, no masses or lesions are noted PHARYNGEAL CAMACHO AND NASOPHARYNX: No masses noted NECK/LYMPH: No LAD, no thyroid masses Impression: Julieta Villa is a 57 year old female who presents to ENT clinic today for epistaxis evaluation following ER visits back to back 07/13 and 07/15/23. Merocel packing removed and irritated mucosa exposed underneath without signs of active bleeding. Plan -afrin twice daily for three days, then stop for two days -nasal saline irrigations three times daily or more if tolerated -night time humidification -pressure and forward position discussed for bleeds -counseled on avoiding picking and trauma to nares. This patient was discussed with attending Dr. Kinney, who agrees with the assessment and plan. Sher Acevedo, PGY-1 Otolaryngology Head and Neck Surgery [facility] Service Pager: [phone] documented in this encounter [facility] Clinical Note 07-16-2023 Note Date & Type Note Facility 07-16-2023 Note Physician Triage Not e The patient was seen by me in intake for a brief history and physical obtained for triage reasons only. My exam is intended to be an initial medical screening exam for disposition within our ED with limited initial orders placed, when appropriate, to expedite care by the treating team. Patient complains of epistaxis. Seen recently for similar requiring ENT c/s and packing. Feeling weak, dizzy. Was hemostatic until around 1930 today. Bleeding less than before, only from R side.. Focused Exam: Holding nose, dried blood. Mild tachycardia, non-toxic. The patient is deemed appropriate for acute. Initial orders: cbc bmp t AND s. The remainder of testing, treatment, and diagnostic plan will be assumed by the next clinician who will be seeing the patient as a primary patient, creating a plan and impression, and final disposition of the patient from the ED. I had a limited role in this case. PLEASE SEE OTHER ATTENDING/RESIDENT/PHYSICIAN/TIN STACKER/PA NOTATION Justin Gonsalez MD [facility] Clinical Note 07-15-2023 Note Date & Type Note Facility 07-15-2023 Note ENT CONSULTATION NOT E Attending requesting consult: Resendes Reason for consult: epistaxis HPI: Julieta Villa is a 57 year old female with PMHx significant for GERD, atrial septal aneurysm, with several day history of R naris epistaxis, initially managed and controlled with pressure, but then rebleeding requiring presentation to ED and failed control with multiple rhinorockets. Patient transferred to [facility] for ENT evaluation. Patient on ASA 81 for previous interventional cards procedures. Noted to be slightly hypertensive SBP 161 on arrival, tachy to 130s. Coags within normal limits, CBC still pending. Patient reporting lightheadedness, fatigue. ROS: 14 point review of systems completed and all negative except as noted in HPI. No past medical history on file. No past surgical history on file. No family history on file. Allergies: No Known Allergies Vital signs: Vital sign ranges over the past 24 hours (retrieved 07/15/2023 at 1:56 AM): Tmax (24 hours): 98.2 ???F (36.8 ???C) Pulse Av Min: 108 Max: 135 Systolic (24hrs), Av , Min:136 , Max:161 Diastolic (24hrs), Av, Min:88, Max:106 No data recorded Resp Av.3 Min: 15 Max: 20 SpO2 Av.8 % Min: 97 % Max: 100 % Physical Exam: CONSTITUTIONAL: Mild acute distress VOICE: No hoarseness or other abnormality RESPIRATION: Breathing comfortably, no stridor CV: No clubbing/cyanosis/edema in hands EYES: EOM intact, sclera normal NEURO: Alert and oriented times 3, Cranial nerves II-XII grossly intact and symmetric bilaterally HEAD AND FACE: Symmetric facial features, no masses or lesions, sinuses non-tender to palpation EARS: normal hearing to whispered voice. Right ear: Normal external ear Left ear: Normal external ear NOSE: External nose midline, anterior rhinoscopy with large septal spur of the caudal right septum with hypertrophic inferior turbinate, mild septal spur of the left caudal septum, slow bloody drainage from the right naris, no drainage from the left naris ORAL CAVITY/OROPHARYNX/LIPS: Normal mucous membranes, normal floor of mouth/tongue/OP, no masses or lesions PHARYNGEAL CAMACHO: No masses or lesions, posterior pharyngeal wall with blood clot extending from the nasopharynx NECK/LYMPH: No LAD, no thyroid masses, trachea midline SKIN: Neck skin is without scar or injury PSYCH: Alert and oriented with appropriate mood and affect Procedure: Control of Epistaxis Verbal informed consent was obtained from the patient. Examination of the nose reveals large caudal right septal spur and hypertrophic inferior turbinate. Afrin was sprayed liberally in order to decongest and allowed to sit for several minutes. Blood clots were evacuated from the oropharynx. A 10Fr suction was attempted to suction clots from the right naris, but given anatomy, difficult to directly visualize. Once clots were disrupted, there developed high flow bleeding both anteriorly and posteriorly whose source could not be adequately identified. Afrin was once again sprayed liberally to decongest and pressure was applied. Following an appropriate amount of time, a merocel was placed in the right naris just medial to the inferior turbinate, and once again afrin was sprayed liberally and pressure applied. The merocel was secured to the nasal bridge and a mustache dressing was applied to monitor nasal drainage. The patient was observed for 15-20 minutes to ensure hemostasis. The patient tolerated the procedure. Assessment/Plan: 57 year old female with several days of R naris epistaxis, refractory to rhinorocket attempts at OSH. Patient transferred to [facility] for ENT evaluation. Nasal exam with significant congestion, inflammation and large right caudal septal spur obscuring view and ability to visualize source of bleeding or clot burden. After suctioning clots from R naris, a merocel was placed and secured, with a mustache dressing to monitor oozing. Recommendations: -Afrin 3x daily to both nares for 3 days -If patient has bleeding spray afrin liberally into both nares and hold pressure for 15 minutes, repeat this 3x -Nasal saline 5 sprays 4x daily for 10 days -To assist in administration of medications, the patient can be provided with a soft angiocath and 3 cc syringe. This can be used to gently guide the catheter between the packing and the nasal tissue to administer the medication into the nasal cavity. -BP control, goal SBP < 160 -Keflex (or other abx covering S. aureus) while packing is in -Packing will remain for 3-5 days -ENT to evaluate in AM to ensure hemostasis AM UPDATE: Patient seen this morning with no evidence of saturation of mustache dressing and apparently hemostatic R naris both anteriorly and posteriorly. -Will keep nasal packing in place x 5 days -Recommend outpatient follow-up with ENT - patient lives in [place] and has standing appointment with Dr. Floyd and wishes to follow-up with h (more content not included)... [facility] Evaluation note Note Date & Type Note Facility Evaluation note No assessment information availa ble [facility] Work Phone: Evaluation note Note Date & Type Note Facility Evaluation note Diagnosis Epistaxis- Primary documented in this encounter [facility] Hospital Discharge instructions Note Date & Type Note Facility Hospital Discharge instructions Additional Instructions Follow-up with your primary care doctor Return to ED if develop worsening symptoms or concerns [facility] Work Phone: Summary Purpose Family History No Family History Records Found Relationship Condition Age at Onset Recorded Date/T kim Not Specified Borderline diabetes mellitus Unknown sister Congenital anomaly of heart Unknown father Borderline diabetes mellitus Unknown Advance Directives No Advanced Directives Records Found Advance Directive Response Recorded Date/ Time Advance Directives No February 5:59am Advance Directive Response Recorded Date/ Time Advance Directives No February 6:59am Chief Complaint and Reason for Visit Chief Complaint Diarrhea Chief Complaint Diarrhea NOSE BLEEDING Additional Source Comments INFORMATION SOURCE (unrecogn ized section and content) DATE CREATED AUTHOR 01/05/2021 [facility] DATE CREATED AUTHOR AUTHOR'S ORGANIZ ATION 07/16/2022 [facility] DATE CREATED AUTHOR AUTHOR'S ORGANIZ ATION 07/25/2023 [facility] DATE CREATED AUTHOR AUTHOR'S ORGANIZ ATION 07/25/2023 [facility] DATE CREATED AUTHOR AUTHOR'S ORGANIZ ATION 10/31/2023 [facility]IC Care Teams (unrecognized sec tion and content) Team Status: Active Member Role Status Dates Marie Nielson MD Primary Care Provider Active Team Status: Inactive Member Role Status Dates Marie Nielson MD Primary Care Provider Active S tart: May 28, 2023 End: May 28, 2023 Agustin Pimentel DO Emergency Provider Active Sta rt: May 28, 2023 End: May 28, 2023 Team Status: Inactive Member Role Status Dates Marie Nielson MD Primary Care Provider Active S tart: July 13, 2023 End: July 13, 2023 Med Owens DO Emergency Provider Active St art: July 13, 2023 End: July 13, 2023 Goals (unrecognized section and content) Goals may be documented in a n alternate sectionGoals may be documented in an alternate section Reason for Visit (unrecogniz ed section and content) Reason Comments Monitoring/follow-up Packing removal fro m nose FOR RECORDS PERTAINING TO PATIENTS WHO ARE OR HAVE BEEN ENROLLED IN A CHEMICAL DEPENDENCY/SUBSTANCEABUSE PROGRAM, SOME INFORMATION MAY BE OMITTED. This clinical summary was aggregated from multiple sources. Caution should be exercised in using it in the provision of clinical care. This summary normalizes information from multiple sources, and as a consequence, information in this document may materially change the coding, format and clinical context of patient data. In addition, data may be omitted in some cases. CLINICAL DECISIONS SHOULD BE BASED ON THE PRIMARY CLINICAL RECORDS. [email or web address] provides no warranty or guarantee of the accuracy or completeness of information in this document.
== END 2023-11-16 10:40 | disposition home or self-care (01) ==
LOC: US 10:39
PROVIDERS: PCP Family Medicine; Visit Provider Nurse Practitioner Family
DX: R14.0 Abdominal distension (gaseous) (principal); N94.89 Other specified conditions associated with female genital organs and menstrual cycle
CPT/HCPCS: 76830

== ENCOUNTER 2024-01-18 12:25 | Outpatient (OUT) | payer OTHER, MEDICARE, SELFPAY ==
--- OUTSIDE RECORDS SUMMARY | 2024-01-18 12:38 | XMS_ITS | CCD ---
Author Organization [facility] Care Team Providers Care Physical Chemist Name Role Phone DR MARIE NIELSON Primary Care Unavailable WOOD De Leon, DR BURNHAM Attending Unavailable WOOD De Leon, DR BURNHAM Consulting Unavailable WOOD De Leon, DR BURNHAM Admitting Unavailable MD Marie Nielson Primary Care Provider DO Agustin Pimentel Emergency Provider MD Marie Nielson Primary Care Provider [phone] DO Agustin Pimentel Emergency Provider [phone] DO Med Owens Emergency Provider Unavailable Primary [...] VOGT Attending Unavailable PROVIDER, UNKNOWN Admitting Unavailable Marie Nielson MD Unavailable Marie Nielson MD Primary Care Provider Thursday MATERIALS AND CORROSION ENGINEER, Lina Unavailable KENNA DAHL Attending Unavailable LAURA TOUSSAINT Attending Unavailable KENNA DAHL Referring Unavailable LAURA TOUSSAINT Attending Unavailable KENNA DAHL Attending Unavailable KENNA DAHL Attending Unavailable KENNA DAHL Attending Unavailable ELIECER NORTON Attending Unavailable MARIE NIELSON Attending Unavailable KENNA DAHL Attending Unavailable KENNA DAHL Attending Unavailable Allergies Allergy Classification Reported Allergen(s) Allergy Type Date of Onset Reaction(s) Facility (1 source) Sulfonamides (Antibiotic) Drug allergy (disorder) 03-02-20 13 [facility] (3 sources) Eucalyptus extract; Translations: [eucalyptus] Drug Allergy 05-28-19 Unknown Reaction [facility] (3 sources) Sulfonamides (Antibiotic); Translations: [Sulfa (Sulfonamide Antibiotics)] Allergy to substance 05-28-19 Rash [facility] (2 sources) Sulfa Drugs Cross Reactors; Translations: [SULFA DRUGS CROSS REACTORS] Propensity to adverse reactions to drug 07-15-19 Rash, Diarrhea [facility] (3 sources) Eucalyptus oil Drug Allergy 07-13-19 Unknown [facility] (3 sources) Sulfanilamide Allergy to substance 12-18-19 [facility] (3 sources) Sulfonamides (Antibiotic) Drug Allergy 07-13-19 Rash [facility] Medications Current Medications Medication Drug Class(es) Dates Sig (Normalized) Sig (Original) acetaminophen 325 mg / HYDROcodone bitartrate 5 mg oral tablet (2 sources) Opioid Agonist Start: 01-03-2019 take 5-325 mg by mouth every six hours Hydrocodone-Acetami nophen Active 5 - 325 MG PO Q6H January 03, 2019 12:00am amLODIPine 5 mg oral tablet (3 sources) Dihydropyridine Calcium Channel Halima Start: 08-27-2023 End: 08-26-2024 take 1 tablet by mouth once daily amLODIPine (Norvasc) 5 MG tablet Indications: Primary hypertension (CMS/HCC) Take 1 tablet (5 mg) by mouth Daily 30 tablet 11 08/27/2023 08/26/2024 Active aspirin 81 mg delayed release oral tablet (5 sources) Platelet Aggregation Inhibitor, Nonsteroidal Anti-inflammatory Drug Start: 01-06-2019 take 81 mg by mouth once daily Aspirin Active 81 MG PO Daily January 06, 2019 12:00am bacillus coagulans [id number] unt / inulin 250 mg oral capsule (3 sources) Bacillus Coagulans-Inulin (Probiotic) 1-250 BILLION-MG capsule as directed Orally Active biotin 1 mg oral tablet (3 sources) biotin 1000 MCG tablet 1 (one) time each day at the same time Active cholecalciferol 0.05 mg oral tablet (5 sources) Vitamin D Start: 01-03-2019 take 1 tablet by mouth once daily Cholecalciferol (Vitamin D3) (Vitamin D3) 2,000 unit Tablet Active 2000 UNIT PO Daily January 03, 2019 12:00am take 1 tablet by mouth once cleo y cholecalciferol (Vitamin D-3) 25 MCG tablet Take 25 mcg by mouth Daily Active furosemide 40 mg oral tablet (2 sources) Loop Diuretic Start: 01-03-2019 take 40 mg by mouth twice daily Furosemide Active 40 MG PO Twice daily January 03, 2019 12:00am ibuprofen 800 mg oral tablet (2 sources) Nonsteroidal Anti-inflammatory Drug Start: 01-12-2024 End: 02-11-2024 take 1 tablet by mouth in the morning, then take 1 tablet by mouth in the evening, then take 1 tablet by mouth at bedtime ibuprofen 800 MG tablet Indications: Other chronic pain , Fibromyalgia , Chronic midline low back pain without sciatica , Rheumatoid arthritis, unspecified (CMS/HCC) Take 1 tablet (800 mg) by mouth in the morning and 1 tablet (800 mg) in the evening and 1 tablet (800 mg) before bedtime. 90 tablet 01/12/2024 02/11/2024 Active levothyroxine sodium 0.1 mg oral tablet (5 sources) l-Thyroxine Start: 10-22-2023 take 1 tablet by mouth every month before mealtime levothyroxine (Synthroid, Levoxyl) 100 MCG tablet Indications: Hypothyroidism, unspecified type (CMS/HCC) Take 1 tablet (100 mcg) by mouth in the morning. Take before meals. Pt reports she chooses to take med only once a month. 90 tablet 10/22/2023 Active Start: 01-03-2019 take 100 ug by mouth once daily in the morning Levothyroxine Active 100 MCG PO Every morning January 03, 2019 12:00am potassium 99 mg extended release oral tablet (2 sources) Start: 01-03-2019 take 99 mg by mouth once daily Potassium Active 99 MG PO Daily January 03, 2019 12:00am SEMAGLUTIDE, 1 MG/DOSE, SC (2 sources) Start: 12-22-2023 End: 01-12-2024 SEMAGLUTIDE, 1 MG/DOSE, SC Inject 0.25 mg under the skin every 7 (seven) days 12/22/2023 01/12/2024 Discontinued (Therapy completed) Semaglutide-Weight Management 0.5 MG/0.5ML solution auto-injector (2 sources) Start: 01-12-2024 End: 02-11-2024 Semaglutide-Weight Management 0.5 MG/0.5ML solution auto-injector Indications: Obesity (BMI 30-39.9) Inject 0.5 mg under the skin every 7 (seven) days 2 mL 01/12/2024 02/11/2024 Active spironolactone 25 mg oral tablet (3 sources) Aldosterone Antagonist take 1 tablet by mouth in the morning spironolactone (Aldactone) 25 MG tablet Take 25 mg by mouth in the morning. Active triamcinolone acetonide 1 mg/ml topical cream (3 sources) Corticosteroid Start: 06-09-2023 triamcinolone (Kenalog) 0.1 % cream Indications: Bug bite without infection, initial encounter Apply to affected areas, up to twice a day when flared, do not use one the face, groin, or underarms, 30 day supply 454 g 11 06/09/2023 Active vitamin b12 0.1 mg oral tablet (3 sources) Vitamin B12 take 1 tablet by mouth once daily cyanocobalamin (Vitamin B-12) 100 MCG tablet Take 100 mcg by mouth Daily Active Problems Active Problems Problem Classification Problem Date Documented Da te Episodic/Chronic Adjustment disorders (5 sources) Adjustment disorder; Translations: [Adjustment disorder, unspecified] Onset: 12-17-2022 12-17-2022 Chronic Anxiety disorders (5 sources) Anxiety; Translations: [Anxiety disorder, unspecified] Onset: 12-17-2022 12-17-2022 Chronic Cardiac and circulatory congenital anomalies (5 sources) Ostium secundum type atrial septal defect; Translations: [Atrial septal defect within oval fossa] Onset: 12-17-2022 12-17-2022 Chronic Chronic obstructive pulmonary disease and bronchiectasis (3 sources) Acute exacerbation of chronic obstructive airways disease; Translations: [Chronic obstructive pulmonary disease with (acute) exacerbation] Onset: 12-17-2022 12-17-2022 Chronic Conduction disorders (5 sources) Right bundle branch block; Translations: [Unspecified right bundle-branch block] Onset: 12-17-2022 12-17-2022 Chronic Diabetes mellitus without complication (5 sources) Prediabetes; Translations: [Prediabetes] Onset: 12-17-2022 12-17-2022 Episodic Disorders of lipid metabolism (12 sources) Raised low density lipoprotein cholesterol; Translations: [Pure hypercholesterolemia, unspecified] Onset: 12-17-2022 12-17-2022 Chronic Essential hypertension (2 sources) Essential hypertension; Translations: [Essential (primary) hypertension] Onset: 01-12-2024 01-12-2024 Chronic Headache; including migraine (10 sources) Chronic tension-type headache; Translations: [Chronic tension-type headache, not intractable] Onset: 08-31-2007 12-17-2022 Chronic Menopausal disorders (1 source) Hormone replacement therapy; Translations: [HORMONE REPLACEMENT THERAPY] Onset: 07-14-2022 Episodic Noninfectious gastroenteritis (2 sources) Ileitis; Translations: [Noninfective gastroenteritis and colitis, unspecified] 02-25-2018 Episodic Nonspecific chest pain (1 source) Chest pain, unspecified; Translations: [Chest pain, unspecified] Onset: 05-28-2023 Episodic Other aftercare (1 source) penitentiary (current) use of aspirin; Translations: [NURSING HOME CURRENT USE OF ASPIRIN] Onset: 07-14-2022 Episodic Other aftercare (1 source) Other long term care administrator (current) drug therapy; Translations: [OTH ASSOCIATE CREATIVE DIRECTOR CURRENT DRUG THERAPY] Onset: 07-14-2022 Episodic Other and ill-defined heart disease (5 sources) Atrial septal aneurysm; Translations: [Aneurysm of heart] Onset: 12-17-2022 12-17-2022 Chronic Other connective tissue disease (5 sources) Fibromyalgia; Translations: [Fibromyalgia] Onset: 12-17-2022 12-17-2022 Episodic Other ear and sense organ disorders (1 source) Malignant otitis externa, right ear; Translations: [MALIGNANT OTITIS EXTERNA RIGHT EAR] Onset: 07-14-2022 Chronic Other ear and sense organ disorders (3 sources) Otitis externa; Translations: [Unspecified otitis externa, unspecified ear] Onset: 12-17-2022 12-17-2022 Chronic Other ear and sense organ disorders (1 source) Otalgia, left ear; Translations: [OTALGIA LEFT EAR] Onset: 07-14-2022 Episodic Other ear and sense organ disorders (2 sources) Otalgia, right ear; Translations: [OTALGIA RIGHT EAR] Onset: 07-13-2022 Episodic Other female genital disorders (2 sources) Ovarian pain; Translations: [Other specified conditions associated with female genital organs and menstrual cycle] 01-12-2024 Episodic Other gastrointestinal disorders (3 sources) Irritable bowel syndrome; Translations: [Irritable bowel syndrome without diarrhea] Onset: 12-17-2022 12-17-2022 Chronic Other gastrointestinal disorders (2 sources) Irritable bowel syndrome with diarrhea; Translations: [Irritable bowel syndrome with diarrhea] 01-12-2024 Chronic Other gastrointestinal disorders (2 sources) Diarrhea; Translations: [Diarrhea, unspecified] 05-28-2023 Episodic Other gastrointestinal disorders (2 sources) Abdominal bloating; Translations: [Abdominal distension (gaseous)] 01-12-2024 Episodic Other nervous system disorders (5 sources) Chronic pain; Translations: [Other chronic pain] Onset: 12-17-2022 12-17-2022 Chronic Other nutritional; endocrine; and metabolic disorders (5 sources) Lipoprotein deficiency disorder; Translations: [Lipoprotein deficiency] Onset: 12-17-2022 12-17-2022 Chronic Other nutritional; endocrine; and metabolic disorders (5 sources) Morbid obesity; Translations: [Morbid (severe) obesity due to excess calories] Onset: 12-17-2022 12-17-2022 Chronic Other nutritional; endocrine; and metabolic disorders (5 sources) Body mass index 30+ - obesity; Translations: [Obesity, unspecified] Onset: 12-17-2022 12-17-2022 Chronic Other screening for suspected conditions (not mental disorders or infectious disease) (2 sources) Patient encounter status; Translations: [Encounter for screening for malignant neoplasm of respiratory organs] 01-12-2024 Episodic Other upper respiratory disease (1 source) [...] 07-14-2022 Episodic Rheumatoid arthritis and related disease (3 sources) Rheumatoid arthritis, unspecified; Translations: [Rheumatoid arthritis] Onset: 07-14-2022 01-12-2024 Chronic Screening and history of mental health and substance abuse codes (1 source) Personal history of nicotine dependence; Translations: [PERSONAL HISTORY OF NICOTINE DEPEND] Onset: 07-14-2022 Episodic Spondylosis; intervertebral disc disorders; other back problems (5 sources) Low back pain; Translations: [Low back pain] Onset: 07-25-2010 12-17-2022 Episodic Substance-related disorders (2 sources) Tobacco dependence caused by cigarettes; Translations: [Nicotine dependence, cigarettes, uncomplicated] 01-12-2024 Chronic Thyroid disorders (9 sources) Hypothyroidism, unspecified; Translations: [Cyst of thyroid] Onset: 03-30-2009 12-17-2022 Chronic Past or Other Problems Problem Classification Problem Date Documented Da te Episodic/Chronic Allergic reactions (3 sources) Idiopathic urticaria; Translations: [Idiopathic urticaria] Onset: 03-24-2023 03-24-2023 Episodic Chronic obstructive pulmonary disease and bronchiectasis (3 sources) Bronchitis; Translations: [Bronchitis, not specified as acute or chronic] Onset: 12-17-2022 12-17-2022 Episodic Other connective tissue disease (3 sources) Pain in buttock; Translations: [Myalgia, other site] Onset: 03-30-2009 12-17-2022 Episodic Other nervous system disorders (3 sources) Loss of taste; Translations: [Parageusia] Onset: 12-17-2022 12-17-2022 Episodic Other skin disorders (3 sources) Eruption; Translations: [Rash and other nonspecific skin eruption] Onset: 03-24-2023 03-24-2023 Episodic Results Test Name Value Interpretation Reference Range Facility Progress Noteson 07-23-2023 Estate Conservator Authentication Interface Message Text Seen and examined. [...] resident's note. Dieudonne Kinney MD Normal [facility] Progress Noteson 07-21-2023 Estate Conservator Authentication Interface Message Text Patient was identified by name and date of . Suzy Cuadra Patient in exam room, vital signs taken, ready for MD exam. Normal [facility] Estate Conservator Authentication Interface Message Text ENT New Patient [...] She normally follows with Dr. Floyd in [place] but has elected to come here for [...] Acevedo, PGY-1 Otolaryngology Head and Neck Surgery [facility] Service Pager: [phone] Normal [facility] BASIC METABOLIC PANELon 04-0 Anion gap [Moles/Vol] 16 mmol/L Normal 10-20 [facility] Comment on above: Performed By: #### h iv1 hiv2 agab scrn, CH8 ####S PATHOLOGY [id number] [place], [place], Calcium [Mass/Vol] 8.9 mg/dL Normal 8.6-10.3 [facility] Comment on above: Performed By: #### h iv1 hiv2 agab scrn, CH8 ####[facility] [id number] [place], [place], Chloride [Moles/Vol] 106 mmol/L Normal 98-107 [facility] Comment on above: Performed By: #### h iv1 hiv2 agab scrn, CH8 ####[facility] [id number] [place], [place], CO2 [Moles/Vol] 23 mmol/L Normal 21-31 [facility] Comment on above: Performed By: #### h iv1 hiv2 agab scrn, CH8 ####S PATHOLOGY [id number] [place], [place], Creatinine [Mass/Vol] 0.74 mg/dL Normal 0.60-1.20 [facility] Comment on above: Performed By: #### h iv1 hiv2 agab scrn, CH8 ####S PATHOLOGY [id number] [place], [place], ESTIMATED GFR (CKD-EPI) 95 mL/min/1.73sqm Normal >=60 [facility] Comment on above: Result Comment: 2020 CKD EPI Equation using Creatinine without Race Comment: Estimated glomerular filtration rate (eGFR) is calculated without a race coefficient. Values should be interpreted in the context of the patient's full clinical presentation. Reference: 1. Suleman C, Nitin M, Dixon DC, et al.. A Unifying Approach for GFR Estimation: Recommendations of the NKF-ASN Task Force on Reassessing the Inclusion of Race in Diagnosing Kidney Disease. [place] Journal of Kidney Diseases 202;79(2):268-88.e1. 2. N Engl J Med 2020 Vol. 385 Issue 19 Pages 9106-3786 Performed By: #### h iv1 hiv2 agab scrn, CH8 ####S PATHOLOGY [id number] [place], [place], Glucose [Mass/Vol] 141 mg/dL High 74-109 [facility] Comment on above: Performed By: #### h iv1 hiv2 agab scrn, CH8 ####S PATHOLOGY [id number] [place], Potassium [Moles/Vol] 4.9 mmol/L Normal 3.5-5.0 [facility] Comment on above: Result Comment: Hemo lysis present Performed By: #### h iv1 hiv2 agab scrn, CH8 ####[facility] [id number] [place], Sodium [Moles/Vol] 140 mmol/L Normal 136-145 [facility] Comment on above: Performed By: #### h iv1 hiv2 agab scrn, CH8 ####S PATHOLOGY [id number] [place], Urea nitrogen [Mass/Vol] 28 mg/dL High 7-25 [facility] Comment on above: Performed By: #### h iv1 hiv2 agab scrn, CH8 ####[facility] PATHOLOGY [id number] [place], [place], CBC WITH DIFFERENTIALon 04-0 -2023 Basophils (Bld) [#/Vol] 0.07 10*3/uL Normal 0.00-0.20 [facility] Comment on above: Performed By: #### C BCDSAT ####[facility] PATHOLOGY [id number] [place], Basophils/100 WBC (Bld) 0.8 % Normal <=1.9 T [facility] Comment on above: Performed By: #### C BCDSAT ####[facility] PATHOLOGY [id number] [place] [address], Eosinophils (Bld) [#/Vol] 0.03 10*3/uL Normal 0.00-0.70 [facility] Comment on above: Performed By: #### C BCDSAT ####[facility] PATHOLOGY [id number] [place] [address], Eosinophils/100 WBC (Bld) 0.4 % Normal 0.1-4.0 The [facility] Comment on above: Performed By: #### C BCDSAT ####[facility] PATHOLOGY [id number] [place] [address], Erythrocyte distribution width (RBC) [Ratio] 13.1 % Normal 11.5-14.5 [facility] Comment on above: Performed By: #### C BCDSAT ####[facility] PATHOLOGY [id number] [place], [place], Hematocrit (Bld) [Volume fraction] 35.9 % Low 36.0-46.0 [facility] Comment on above: Performed By: #### C BCDSAT ####[facility] PATHOLOGY [id number] [place], Hemoglobin (Bld) [Mass/Vol] 12.4 g/dL Normal 12.0-15.0 [facility] Comment on above: Performed By: #### Dayan TEEAT ####[facility] PATHOLOGY [id number] [place], [place], Lymphocytes (Bld) [#/Vol] 1.09 10*3/uL Normal 1.00-4.80 [facility] Comment on above: Performed By: #### Dayan TEEAT ####[facility] PATHOLOGY [id number] [place] [address], Lymphocytes/100 WBC (Bld) 13.4 % Low 24.0-44.0 [facility] Comment on above: Performed By: #### Dayan TEEAT ####[facility] PATHOLOGY [id number] [place] [address], MCH (RBC) [Entitic mass] 30.4 pg Normal 26.0-34.0 [facility] Comment on above: Performed By: #### Dayan TEEAT ####[facility] PATHOLOGY [id number] [place] [address], MCHC (RBC) [Mass/Vol] 34.4 g/dL Normal 32.0-35.9 [facility] Comment on above: Performed By: #### Dayan TEEAT ####[facility] PATHOLOGY [id number] [place] [address], MCV (RBC) [Entitic vol] 88 fL Normal 80-100 T [facility] Comment on above: Performed By: #### Dayan TEEAT ####[facility] PATHOLOGY [id number] [place] [address], MONOCYTE DISTRIBUTION WIDTH 20 Normal <=20 [facility] Comment on above: Performed By: #### Dayan TEEAT ####[facility] PATHOLOGY [id number] [place], Monocytes (Bld) [#/Vol] 0.33 10*3/uL Normal 0.20-1.00 [facility] Comment on above: Performed By: #### Dayan TEEAT ####[facility] PATHOLOGY [id number] [place] [address], Monocytes/100 WBC (Bld) 4.1 % Normal 2.0-11.0 T [facility] Comment on above: Performed By: #### Dayan TEEAT ####[facility] PATHOLOGY [id number] [place], Neutrophils (Bld) [#/Vol] 6.64 10*3/uL Normal 1.50-8.00 [facility] Comment on above: Performed By: #### Dayan TEEAT ####[facility] PATHOLOGY [id number] [place], Neutrophils/100 WBC (Bld) 81.3 % High 31.0-76.0 [facility] Comment on above: Performed By: #### Dayan TEEAT ####[facility] PATHOLOGY [id number] [place], Platelet mean volume (Bld) [Entitic vol] 8.8 fL Normal 7.5-11.2 [facility] Comment on above: Performed By: #### Dayan TEEAT ####[facility] PATHOLOGY [id number] [place], Platelets (Bld) [#/Vol] 284 10*3/uL Normal 150-400 [facility] Comment on above: Performed By: #### Dayan TEEAT ####[facility] PATHOLOGY [id number] [place], RBC (Bld) [#/Vol] 4.07 10*6/uL Normal 4.00-5.20 [facility] Comment on above: Performed By: #### Dayan TEEAT ####[facility] PATHOLOGY [id number] [place], WBC (Bld) [#/Vol] 8.2 10*3/uL Normal 4.5-11.5 [facility] Comment on above: Performed By: #### Dayan TEEAT ####[facility] PATHOLOGY [id number] [place], [place], [facility] 07-16-2023 Estate Conservator Authentication Interface Message Text ---- Attestation signed by Jeff Gray MD at 07/17/2023 11:37 AM Attestation: Patient discussed with me but not seen by me. Agree with assessment and plan. ---- ENT CONSULTATION NOTE Attending requesting consult: Resendes Reason for consult: epistaxis HPI: Recall from 07/14 previous visit: Julieta Villa is a 57 year old female with PMHx significant for GERD, atrial septal aneurysm, with several day history of R naris epistaxis, initially managed and controlled with pressure, but then rebleeding requiring presentation to ED and failed control with multiple rhinorockets. Patient transferred to [facility] for ENT evaluation. Patient on ASA 81 [...] follow-up with ENT - patient lives in [place] and has standing appointment with Dr. Floyd and wishes to follow-up with him for packing removal; if she wants to follow with us at [facility], we can arrange follow-up as well [facility]ol[facility]ology-Head AND Neck Surgery, PGY-3 Normal [facility] Provider Tejal 07-16-19 Estate Conservator Authentication Interface Message Text EMERGENCY DEPARTMENT - [...] PHYSICAL EXAM ----- ED Triage Vitals [07/15/23 8464] Temperature BP Heart Rate Respiratory Rate SpO2 [...] resident's note. Ernestina Vogt, DO Normal [facility] HIV1 HIV2 AGAB BELNon 2023 HIV AG-AB SCREEN Non-Reactive Normal Non-Reactive [facility] Comment on above: Order Comment: HIV I nformation: ???[place] Rev. code 3701.243(E):This information has been disclosed [...] By: #### h iv1 hiv2 agab janie, 8 ####[facility] [id number] [place], [address] Telephone Encounteron 2023 Estate Conservator Authentication Interface Message Text Patient's calling in [...] for call back from resident or nurses. #: [phone] Normal [facility] ABO RH TYPEon 07-15-2023 ABO and Rh group Nom (Bld) Blood group A Rh(D) positive Normal [facility] Comment on above: Performed By: #### A VIRGIL #### [facility] [address] [place], [address] ED Noteson 07-15-2023 Estate Conservator Authentication Interface Message Text Patient stated she had two bouts of tarry stools while here tonight in the ED, MD Hammond notified. Normal [facility] ED Provider Noteson 07-15-19 Estate Conservator Authentication Interface Message Text SM 57yo F [...] the plan moving forward , Normal [facility] Estate Conservator Authentication Interface Message Text ---- Attestation signed [...] as documented in the resident's note. Kaden Vogt, DO ---- EMERGENCY DEPARTMENT NOTE Chief Complaint Patient presents with Nose bleed Pt with nosebleed that started and resolved Thursday, reoccurred today. Pt was seen at [place] ED x 3 today, multiple rhino rockets [...] did not radha despite pressure. Went to H ED in [place] where they attempted packing multiple times but [...] FND. ED COURSE: ED Course as of 07/15/23138Jul 15, 2023 001 BP(!): 161/106 [HANS] 0017 Temperature: 98.2 ???F [...] final disposition Elbert Hammond MD Normal [facility] PARTIAL THROMBOPLASTIN TIMEo n 07-15-2023 aPTT Coag (Bld) [Time] 28 s Normal 25-37 Th e [employer] [facility] Comment on above: Performed By: #### A PTT, PT #### [facility] [address] [place] [address], [id number] PROTHROMBIN TIME AND INRon 0 07-15-2023 INR Coag (PPP) [Relative time] 1.08 {INR} Normal 0.90-1.10 [facility] Comment on above: Performed By: #### A PTT, PT #### [facility] [address] [place] [address], PT Coag (PPP) [Time] 12.1 s Normal 9.7-12.9 [facility] Comment on above: Performed By: #### A PTT, PT #### [facility] [address] [place] [address], TYPE AND SCREENon 07-15-2023 ABO and Rh group Nom (Bld) Blood group A Rh(D) positive Normal [facility] Comment on above: Performed By: #### T S #### [facility] [address] [place] [address], ABSC INT Negative Normal [facility] Comment on above: Performed By: #### T S #### [facility] [address] [place] [address], Telephone Encounteron 2023 [employer] Authentication Interface Message Text No PCP on [...] agrees to return to ED Normal [facility] [employer] [facility] Alanine aminotransferase [En zymatic activity/volume] in Serum or PlasmaOrdered By: Agustin Pimentel on 05-28-2023 ALT [Catalytic activity/Vol] 26 U/L 7-52 [facility] Albumin [Mass/volume] in Ser um or Plasma by Bromocresol green (BCG) dye binding methoOrdered By: Agustin Pimentel on 05-28-2023 Albumin BCG dye [Mass/Vol] 4.4 g/dL 3.5-5.7 [facility] Alkaline phosphatase [Enzyma tic activity/volume] in Serum or PlasmaOrdered By: Agustin Pimentel on 05-28-2023 ALP [Catalytic activity/Vol] 76 U/L 34-104 [facility] Aspartate aminotransferase [ Enzymatic activity/volume] in Serum or PlasmaOrdered By: Agustin Pimentel on 05-28-2023 AST [Catalytic activity/Vol] 27 U/L 13-39 [facility] Automated erythrocytes count in urine sediment (number/area)Ordered By: Agustin Pimentel on 05-28-2023 RBC Auto (Urine sed) [#/Area] 1-2 [HPF] 0-4 [facility] Automated leukocytes count i n urine sediment (number/area)Ordered By: Agustin Pimentel on 05-28-2023 WBC Auto (Urine sed) [#/Area] 0-1 [HPF] 0-4 [facility] Basic Metabolic Panelon 05-14 Anion gap [Moles/Vol] 12.6 mmol/L Normal 6.0-15.0 [facility] Comment on above: Performed By: #### C BC, HEPATIC, BMP, LIPASE #### [facility] [address] [id number] [place] Calcium [Mass/Vol] 8.7 mg/dL Normal 8.6-10.3 [facility] Comment on above: Performed By: #### C BC, HEPATIC, BMP, LIPASE #### [facility] [address] [id number] [place] Chloride [Moles/Vol] 102 mmol/L Normal 98-107 [facility] Comment on above: Performed By: #### C BC, HEPATIC, BMP, LIPASE #### [facility] [address] [place] [address] [place] CO2 [Moles/Vol] 26.0 mmol/L Normal 21.0-31.0 The [facility] Comment on above: Performed By: #### C BC, HEPATIC, BMP, LIPASE #### [facility] [address] [phone] [place] Creatinine [Mass/Vol] 0.76 mg/dL Normal 0.60-1.20 [facility] Comment on above: Performed By: #### C BC, HEPATIC, BMP, LIPASE #### [facility] [address] Creatinine Clr Calc Pharmacy 104.33 Normal [facility] Comment on above: Performed By: #### C BC, HEPATIC, BMP, LIPASE #### [facility] [address] GFR/1.73 sq M.predicted MDRD (S/P/Bld) [Vol rate/Area] mL/min/{1.73_m2} Normal [facility] Comment on above: Performed By: #### C BC, HEPATIC, BMP, LIPASE #### [facility] [address] Glucose [Mass/Vol] 97 mg/dL Normal 70-100 [facility] Comment on above: Result Comment: [place] Glucose Reference Range is dependent on time and content of last meal. Glucose of more than 200 mg/dL in a nonstressed, ambulatory subject supports the diagnosis of Diabetes Mellitus. ADA recommended reference range Performed By: #### C BC, HEPATIC, BMP, LIPASE #### [address] Potassium [Moles/Vol] 3.6 mmol/L Normal 3.5-5.1 [facility] Comment on above: Performed By: #### C BC, HEPATIC, BMP, LIPASE #### [address] Sodium [Moles/Vol] 137 mmol/L Normal 136-145 [facility] Comment on above: Performed By: #### C BC, HEPATIC, BMP, LIPASE #### [facility] [address] Urea nitrogen [Mass/Vol] 8 mg/dL Normal 7-25 [facility] Comment on above: Performed By: #### C BC, HEPATIC, BMP, LIPASE #### [address] Basophils Auto (Bld) [#/Vol] Ordered By: Agustin Pimentel on 05-28-2023 Basophils (Bld) [#/Vol] 0.0 10*3/uL 0.0-0.2 [facility] Basophils/100 WBC Auto (Bld) Ordered By: Agustin Pimentel on 05-28-2023 Basophils/100 WBC (Bld) 1.1 % . [facility] Bilirubin Test strip Ql (U)O rdered By: Agustin Pimentel on 05-28-2023 Bilirubin Ql (U) Negative Negative [facility] Bilirubin.direct [Mass/volum e] in Serum or PlasmaOrdered By: Agustin Pimentel on 05-28-2023 Bilirubin.direct [Mass/Vol] 0.20 mg/dL 0.03-0.18 [facility] Bilirubin.total [Mass/volume ] in Serum or PlasmaOrdered By: Agustin Pimentel on 05-28-2023 Bilirubin [Mass/Vol] 0.6 mg/dL 0.3-1.0 [facility] Calcium [Mass/volume] in Ser um or PlasmaOrdered By: Agustin Pimentel on 05-28-2023 Calcium [Mass/Vol] 8.7 mg/dL 8.6-10.3 [facility] Carbon dioxide, total [Moles /volume] in Serum or PlasmaOrdered By: Agustin Pimentel on 05-28-2023 CO2 [Moles/Vol] 26.0 mmol/L 21.0-31.0 [facility] Chloride [Moles/volume] in S chris or PlasmaOrdered By: Agustin Pimentel on 05-28-2023 Chloride [Moles/Vol] 102 mmol/L 98-107 [facility] Clostridioides difficile tox in B tcdB gene [Presence] in Stool by BEE with probe deteOrdered By: Agustin Pimentel on 05-28-2023 C. difficile toxin B tcdB gene BEE+probe Ql (Stl) Negative Negative [facility] Comment on above: Testing performed by RT-PCR Clostridium Difficileon 05-14 Clostridium Difficile Negative Normal Negative [facility] Comment on above: Order Comment: > or = to 3 loose/watery stools in the last 24 HRS? Y Is patient on promotility agents or tube feeding? N Result Comment: Test ing performed by RT-PCR PERFORMED BY: [place] [address] PATHOLOGIST BRIDGE WORKER APPRENTICE SWAPNIL CAI M.D. Performed By: #### C DT #### [address] Color Auto (U)Ordered By: Eduardo Pimentel on 05-28-2023 Color (U) Yellow Yellow [facility] Complete Blood Count Auto Di ffon 05-28-2023 Basophils (Bld) [#/Vol] 0.0 10*3/uL Normal 0.0-0.2 [facility] Comment on above: Result Comment: PERF ORMED BY: [place] [address] PATHOLOGIST BRIDGE WORKER APPRENTICE SWAPNIL CAI M.D. Performed By: #### C BC, HEPATIC, BMP, LIPASE #### [address] Basophils/100 WBC (Bld) 1.1 % Normal . [facility] Comment on above: Performed By: #### C BC, HEPATIC, BMP, LIPASE #### [address] Eosinophils (Bld) [#/Vol] 0.0 10*3/uL Normal 0.0-0.45 [facility] Comment on above: Performed By: #### C BC, HEPATIC, BMP, LIPASE #### [address] Eosinophils/100 WBC (Bld) 0.9 % Normal . [facility] Comment on above: Performed By: #### C BC, HEPATIC, BMP, LIPASE #### [address] Erythrocyte distribution width (RBC) [Ratio] 13.0 % Normal 11.9-15.3 The [facility] Comment on above: Performed By: #### C BC, HEPATIC, BMP, LIPASE #### [address] Hematocrit (Bld) [Volume fraction] 39.0 % Normal 34.0-46.4 [facility] Comment on above: Performed By: #### C BC, HEPATIC, BMP, LIPASE #### [address] Hemoglobin (Bld) [Mass/Vol] 13.5 g/dL Normal 11.8-15.4 [facility] Comment on above: Performed By: #### C BC, HEPATIC, BMP, LIPASE #### [address] Lymphocytes (Bld) [#/Vol] 0.5 10*3/uL Low 1.00-4.8 [facility] Comment on above: Performed By: #### C BC, HEPATIC, BMP, LIPASE #### [address] Lymphocytes/100 WBC (Bld) 22.7 % Normal . [facility] Comment on above: Performed By: #### C BC, HEPATIC, BMP, LIPASE #### [address] MCH (RBC) [Entitic mass] 29.8 pg Normal 24.7-34.3 [facility] Comment on above: Performed By: #### C BC, HEPATIC, BMP, LIPASE #### [address] MCV (RBC) [Entitic vol] 86.0 fL Normal 80-100 T he [facility] Comment on above: Performed By: #### C BC, HEPATIC, BMP, LIPASE #### [address] Mean Corpuscular HGB Conc 34.7 g/dL Normal 32.0-35.0 [facility] Comment on above: Performed By: #### C BC, HEPATIC, BMP, LIPASE #### [address] Monocytes (Bld) [#/Vol] 0.2 10*3/uL Normal 0.0-0.8 [facility] Comment on above: Performed By: #### C BC, HEPATIC, BMP, LIPASE #### [address] Monocytes/100 WBC (Bld) 25.29 % High 0.00-20.00 [facility] Comment on above: Result Comment: For adults in ED, MDW > 20.0 may be associated with a higher risk of sepsis during the first 12 hrs of hospital admission Performed By: #### C BC, HEPATIC, BMP, LIPASE #### [address] Monocytes/100 WBC (Bld) 9.8 % Normal . [facility] Comment on above: Performed By: #### C BC, HEPATIC, BMP, LIPASE #### [address] Neutrophils (Bld) [#/Vol] 1.5 10*3/uL Low 1.8-7.7 [facility] Comment on above: Performed By: #### C BC, HEPATIC, BMP, LIPASE #### [address] Neutrophils/100 WBC (Bld) 65.5 % Normal . [facility] Comment on above: Performed By: #### C BC, HEPATIC, BMP, LIPASE #### [address] NRBC% 0.2 /100{WBC} Normal 0-0.5 The [facility] Comment on above: Performed By: #### C BC, HEPATIC, BMP, LIPASE #### [address] Platelet mean volume (Bld) [Entitic vol] 7.8 fL Normal 6.3-10.7 The [facility] Comment on above: Performed By: #### C BC, HEPATIC, BMP, LIPASE #### [place] [address] [place] Platelets (Bld) [#/Vol] 163 10*3/uL Normal 150-450 [facility] Comment on above: Performed By: #### C BC, HEPATIC, BMP, LIPASE #### [place] [address] [place] RBC (Bld) [#/Vol] 4.54 10*6/uL Normal 3.60-5.00 The [facility] Comment on above: Performed By: #### C BC, HEPATIC, BMP, LIPASE #### [facility] [address] WBC (Bld) [#/Vol] 2.2 10*3/uL Low 3.8-11.6 [facility] Comment on above: Performed By: #### C BC, HEPATIC, BMP, LIPASE #### [facility] [address] Creatinine [Mass/volume] in Serum or PlasmaOrdered By: Agustin Pimentel on 05-28-2023 Creatinine [Mass/Vol] 0.76 mg/dL 0.60-1.20 [facility] Dipstick and Microscopicon 0 05-28-2023 Appearance (U) Clear Normal Clear The [facility] Comment on above: Order Comment: Name Collection Type:: Clean-Voided Midstream Performed By: #### A DDONUAPLUS #### [address] Bacteria,Urine None Seen Normal None Seen [facility] Comment on above: Order Comment: Name Collection Type:: Clean-Voided Midstream Performed By: #### A DDONUAPLUS #### [place] [address] [place] Bilirubin,Urine Negative Normal Negative The [facility] Comment on above: Order Comment: Name Collection Type:: Clean-Voided Midstream Performed By: #### A DDONUAPLUS #### [place] [address] [place] Color (U) Yellow Normal Yellow [facility] Comment on above: Order Comment: Name Collection Type:: Clean-Voided Midstream Performed By: #### A DDONUAPLUS #### [place] [address] [place] Glucose Ql (U) Normal Normal Normal [facility] Comment on above: Order Comment: Name Collection Type:: Clean-Voided Midstream Performed By: #### A DDONUAPLUS #### [place] [address] [place] Hyaline Casts,Urine 0-8 Normal 0-8 [facility] Comment on above: Order Comment: Name Collection Type:: Clean-Voided Midstream Result Comment: PERF ORMED BY: [place] [address] PATHOLOGIST BRIDGE WORKER APPRENTICE SWAPNIL CAI M.D. Performed By: #### A DDONUAPLUS #### [place] [address] [place] Ketones Ql (U) 3+ High Negative [facility] Comment on above: Order Comment: Name Collection Type:: Clean-Voided Midstream Performed By: #### A DDONUAPLUS #### [place] [address] [place] Leukocyte esterase Test strip Ql (U) Negative Normal Negative [facility] Comment on above: Order Comment: Name Collection Type:: Clean-Voided Midstream Performed By: #### A DDONUAPLUS #### [place] [address] [place] Nitrite,Urine Negative Normal Negative [facility] Comment on above: Order Comment: Name Collection Type:: Clean-Voided Midstream Performed By: #### A DDONUAPLUS #### [place] [address] [place] Occult Blood,Urine Trace High Negative [facility] Comment on above: Order Comment: Name Collection Type:: Clean-Voided Midstream Result Comment: PERF ORMED BY: [place] [address] PATHOLOGIST BRIDGE WORKER APPRENTICE SWAPNIL CAI M.D. Performed By: #### A DDONUAPLUS #### [place] [address] [place] pH (U) 6.0 [pH] Normal 5.0-9.0 [facility] Comment on above: Order Comment: Name Collection Type:: Clean-Voided Midstream Performed By: #### A DDONUAPLUS #### [address] Protein,Urine Negative Normal Negative [facility] Comment on above: Order Comment: Name Collection Type:: Clean-Voided Midstream Performed By: #### A DDONUAPLUS #### [address] RBC,Urine 1-2 Normal 0-4 [facility] Comment on above: Order Comment: Name Collection Type:: Clean-Voided Midstream Performed By: #### A DDONUAPLUS #### [address] Specificy [place],Urine 1.011 Normal 1.001-1.030 [facility] Comment on above: Order Comment: Name Collection Type:: Clean-Voided Midstream Performed By: #### A DDONUAPLUS #### [address] Squamous Epithelial Cell,Urine 0-1 Normal 0-2 [facility] Comment on above: Order Comment: Name Collection Type:: Clean-Voided Midstream Performed By: #### A DDONUAPLUS #### [address] Urobilinogen,Urine Normal Normal Normal [facility] Comment on above: Order Comment: Name Collection Type:: Clean-Voided Midstream Performed By: #### A DDONUAPLUS #### [address] WBC LM.HPF (Urine sed) [#/Area] 0 /[HPF] Normal 0-4 [facility] Comment on above: Order Comment: Name Collection Type:: Clean-Voided Midstream Performed By: #### A DDONUAPLUS #### [address] Eosinophils Auto (Bld) [#/Vo l]Ordered By: Agustin Pimentel on 05-28-2023 Eosinophils (Bld) [#/Vol] 0.0 10*3/uL 0.0-0.45 [facility] Eosinophils/100 WBC Auto (Bl d)Ordered By: Agustin Pimentel on 05-28-2023 Eosinophils/100 WBC (Bld) 0.9 % . [facility] Erythrocyte distribution wid th Auto (RBC) [Ratio]Ordered By: Agustin Pimentel on 05-28-2023 Erythrocyte distribution width (RBC) [Ratio] 13.0 % 11.9-15.3 [facility] Globulin Calc (S) [Mass/Vol] Ordered By: Agustin Pimentel on 05-28-2023 Globulin (S) [Mass/Vol] 3.0 g/dL F [facility] Glucose [Mass/volume] in Ser um or PlasmaOrdered By: Agustin Pimentel on 05-28-2023 Glucose [Mass/Vol] 97 mg/dL 70-100 [facility] Comment on above: ADA recommended refe rence rangeRandom Glucose Reference Range is dependent on time and content of last meal. Glucose of more than 200 mg/dL in a nonstressed, ambulatory subject supports the diagnosis of Diabetes Mellitus. Hematocrit Auto (Bld) [Volum e fraction]Ordered By: Agustin Pimentel on 05-28-2023 Hematocrit (Bld) [Volume fraction] 39.0 % 34.0-46.4 [facility] Hemoglobin [Mass/volume] in BloodOrdered By: Agustin Pimentel on 05-28-2023 Hemoglobin (Bld) [Mass/Vol] 13.5 g/dL 11.8-15.4 [facility] Hepatic Panelon 05-28-2023 Albumin [Mass/Vol] 4.4 g/dL Normal 3.5-5.7 [facility] Comment on above: Performed By: #### C BC, HEPATIC, BMP, LIPASE #### [facility] [address] [place] [address] [place] Albumin/Globulin [Mass ratio] 1.5 {ratio} Normal [facility] Comment on above: Performed By: #### C BC, HEPATIC, BMP, LIPASE #### [facility] [address] [id number] [place] ALP [Catalytic activity/Vol] 76 U/L Normal 34-104 [facility] Comment on above: Performed By: #### C BC, HEPATIC, BMP, LIPASE #### [address] ALT [Catalytic activity/Vol] 26 U/L Normal 7-52 [facility] Comment on above: Performed By: #### C BC, HEPATIC, BMP, LIPASE #### [facility] [address] AST [Catalytic activity/Vol] 27 U/L Normal 13-39 [facility] Comment on above: Performed By: #### C BC, HEPATIC, BMP, LIPASE #### [address] Bilirubin [Mass/Vol] 0.6 mg/dL Normal 0.3-1.0 [facility] Comment on above: Performed By: #### C BC, HEPATIC, BMP, LIPASE #### [address] Bilirubin,Indirect 0.4 mg/dL Normal [facility] Comment on above: Performed By: #### C BC, HEPATIC, BMP, LIPASE #### [address] Bilirubin.indirect [Mass/Vol] 0.20 mg/dL High 0.03-0.18 [facility] Comment on above: Performed By: #### C BC, HEPATIC, BMP, LIPASE #### [address] Globulin (S) [Mass/Vol] 3.0 g/dL Normal T he [facility] Comment on above: Performed By: #### C BC, HEPATIC, BMP, LIPASE #### [address] Protein [Mass/Vol] 7.4 g/dL Normal 6.4-8.9 [facility] Comment on above: Performed By: #### C BC, HEPATIC, BMP, LIPASE #### [address] Ketones Auto test strip (U) [Mass/Vol]Ordered By: Agustin Pimentel on 05-28-2023 Ketones (U) [Mass/Vol] 3+ Negative [facility] - UrinalysisOrder ed By: Agustin Pimentel on 05-28-2023 Hyaline casts LM Ql (Urine sed) 0-8 [LPF] 0-8 [facility] Leukocytes [#/volume] correc zainab for nucleated erythrocytes in Blood by Automated counOrdered By: Agustin Pimentel on 05-28-2023 WBC corrected for nucl RBC Auto (Bld) [#/Vol] 2.2 10*3/uL 3.8-11.6 [facility] Lipaseon 05-28-2023 Lipase [Catalytic activity/Vol] 11.0 U/L Normal 11.0-82.0 [facility] Comment on above: Result Comment: PERF ORMED BY: [place] [address] PATHOLOGIST BRIDGE WORKER APPRENTICE SWAPNIL CAI M.D. Performed By: #### C BC, HEPATIC, BMP, LIPASE #### [address] Lipase [Enzymatic activity/v olume] in Serum or PlasmaOrdered By: Agustin Pimentel on 05-28-2023 Lipase [Catalytic activity/Vol] 11.0 U/L 11.0-82.0 [facility] Lymphocytes Auto (Bld) [#/Vo l]Ordered By: Agustin Pimentel on 05-28-2023 Lymphocytes (Bld) [#/Vol] 0.5 10*3/uL 1.00-4.8 [facility] Lymphocytes/100 WBC Auto (Bl d)Ordered By: Agustin Pimentel on 05-28-2023 Lymphocytes/100 WBC (Bld) 22.7 % . [facility] MCH Auto (RBC) [Entitic mass ]Ordered By: Agustin Pimentel on 05-28-2023 MCH (RBC) [Entitic mass] 29.8 pg 24.7-34.3 [facility] MCHC Auto (RBC) [Mass/Vol]Or dered By: Agustin Pimentel on 05-28-2023 MCHC (RBC) [Mass/Vol] 34.7 g/dL 32.0-35.0 [facility] MCV Auto (RBC) [Entitic vol] Ordered By: Agustin Pimentel on 05-28-2023 MCV (RBC) [Entitic vol] 86.0 fL 80-100 [facility] Monocyte distribution width [Entitic volume] in Blood by AutomatedOrdered By: Agustin Pimentel on 05-28-2023 Monocyte distribution width Auto (Bld) [Entitic vol] 25.29 % 0.00-20.00 [facility] Comment on above: For adults in ED, MD W > 20.0 may be associated with a higher risk of sepsis during the first 12 hrs of hospital admission Monocytes Auto (Bld) [#/Vol] Ordered By: Agustin Pimentel on 05-28-2023 Monocytes (Bld) [#/Vol] 0.2 10*3/uL 0.0-0.8 [facility] Monocytes/100 WBC Auto (Bld) Ordered By: Agustin Pimentel on 05-28-2023 Monocytes/100 WBC (Bld) 9.8 % . [facility] Neutrophils Auto (Bld) [#/Vo l]Ordered By: Agustin Pimentel on 05-28-2023 Neutrophils (Bld) [#/Vol] 1.5 10*3/uL 1.8-7.7 [facility] Neutrophils/100 WBC Auto (Bl d)Ordered By: Agustin Pimentel on 05-28-2023 Neutrophils/100 WBC (Bld) 65.5 % . [facility] Nitrite Test strip Ql (U)Ord ered By: Agustin Pimentel on 05-28-2023 Nitrite Ql (U) Negative Negative [facility] No Panel InformationOrdered By: Agustin Pimentel on 05-28-2023 Estimated GFR (CKD-EPI) > 60.0 mL/Min [facility] Creatinine Clearance (Chem 104.33 [facility] Nucleated erythrocytes [Pres ence] in Blood by Automated countOrdered By: Agustin Pimentel on 05-28-2023 Nucleated RBC Auto Ql (Bld) 0.2 /100{WBC} 0-0.5 [facility] Platelet mean volume Auto (B ld) [Entitic vol]Ordered By: Agustin Pimentel on 05-28-2023 Platelet mean volume (Bld) [Entitic vol] 7.8 fL 6.3-10.7 [facility] Platelets Auto (Bld) [#/Vol] Ordered By: Agustin Pimentel on 05-28-2023 Platelets (Bld) [#/Vol] 163 10*3/uL 150-450 [facility] Potassium [Moles/volume] in Serum or PlasmaOrdered By: Agustin Pimentel on 05-28-2023 Potassium [Moles/Vol] 3.6 mmol/L 3.5-5.1 [facility] Protein Auto test strip (U) [Mass/Vol]Ordered By: Agustni Pimentel on 05-28-2023 Protein (U) [Mass/Vol] Negative Negative [facility] Protein [Mass/volume] in Ser um or PlasmaOrdered By: Agustin Pimentel on 05-28-2023 Protein [Mass/Vol] 7.4 g/dL 6.4-8.9 [facility] RBC Auto (Bld) [#/Vol]Ordere d By: Agustin Pimentel on 05-28-2023 RBC (Bld) [#/Vol] 4.54 10*6/uL 3.60-5.00 [facility] Serum or plasma albumin/glob ulin mass ratioOrdered By: Agustin Pimentel on 05-28-2023 Albumin/Globulin [Mass ratio] 1.5 {ratio} [facility] Serum or plasma anion gap de terminationOrdered By: Agustin Pimentel on 05-28-2023 Anion gap [Moles/Vol] 12.6 mmol/L 6.0-15.0 [facility] Serum or plasma non-glucuron idated bilirubin measurement (mass/volume)Ordered By: Agustin Pimentel on 05-28-2023 Bilirubin.indirect [Mass/Vol] 0.4 mg/dL [facility] Sodium [Moles/volume] in Ser um or PlasmaOrdered By: Agustin Pimentel on 05-28-2023 Sodium [Moles/Vol] 137 mmol/L 136-145 [facility] Specific gravity Auto test s trip (U) [Rel density]Ordered By: Agustin Pimentel on 05-28-2023 Specific gravity (U) [Rel density] 1.011 1.001-1.030 [facility] Squamous epithelial cells de tection in urine sediment by light microscopyOrdered By: Agustin Pimentel on 05-28-2023 Epithelial cells.squamous LM Ql (Urine sed) 0-1 [HPF] 0-2 [facility] Urea nitrogen [Mass/volume] in Serum or PlasmaOrdered By: Agustin Pimentel on 05-28-2023 Urea nitrogen [Mass/Vol] 8 mg/dL 7-25 [facility] Urine bacteria detection by automated methodOrdered By: Agustin Pimentel on 05-28-2023 Bacteria Auto Ql (U) None seen None Seen [facility] Urine clarity by refractomet ry automatedOrdered By: Agustin Pimentel on 05-28-2023 Clarity Refractometry automated (U) Clear Clear [facility] Urine glucose measurement by automated test strip (mass/volume)Ordered By: Agustin Pimentel on 05-28-2023 Glucose Auto test strip (U) [Mass/Vol] Normal mg/dL Normal [facility] Urine hemoglobin detection b y automated test stripOrdered By: Agustin Pimentel on 05-28-2023 Hemoglobin Auto test strip Ql (U) Trace Negative [facility] Urine leukocyte esterase det ection by automated test stripOrdered By: Agustin Pimentel on 05-28-2023 Leukocyte esterase Auto test strip Ql (U) Negative Negative [facility] Urobilinogen Auto test strip (U) [Mass/Vol]Ordered By: Agustin Pimentel on 05-28-2023 Urobilinogen (U) [Mass/Vol] Normal mg/dL Normal [facility] WBC Auto (Bld) [#/Vol]Ordere d By: Agustin Pimentel on 05-28-2023 WBC (Bld) [#/Vol] 2.2 10*3/uL 3.8-11.6 [facility] pH Auto test strip (U)Ordere d By: Agustin Pimentel on 05-28-2023 pH (U) 6.0 [pH] 5.0-9.0 [facility] Echocardiogramon 12-18-[address], Suite [facility], [place] [address] TRANSTHORACIC ECHOCARDIOGRAM REPORT Patient Name: JULIETA VILLA Reading Physician: [id number] Kieran Kong DO Study Date: 12/18/2020 Referring Physician: [id number] TODD ROSALES MRN/PID: [id number] PCP: Marie Nielson Accession/Order#: [id number] Department Location: [facility] Date of : 1965 Fellow: Gender: F Nurse: Admit Date: Mill Laborer: Sonia Santillan RDCS, RVT Height: 165.10 cm CC Report to: Weight: 102.06 kg Study Type: Echocardiogram BSA: 2.08 m2 Blood Pressure: 128 /84 mmHg Diagnosis/ICD: Q21.1-Atrial septal defect (ASD); 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 Indication: Abnormal EKG-RBBB, Former Smoker, Obesity Procedure/CPT: Echo Complete w Full [id number] Study Detail: The following Echo studies were [...] 0.9 m/s (0.6-0.9m/s) PV Max P.2 mmHg [id number] Kieran Luann WALKER Electronically signed on 12/19/2020 at 1:45:17 PM Final Normal [facility] Vital Signs Date Time Vital Sign Value Performing Clinician Facility 01-12-2024 09:55-0400 Body height 167.6 cm Kenna Dahl NP Work Phone: [facility] 01-12-2024 09:55-0400 Body mass index (BMI) [Ratio] 41 kg/m2 Kenna Dahl GEOPOLITICS TEACHER Work Phone: [facility] 01-12-2024 09:55-0400 Body weight 115.21 kg Kenna Dahl NP Work Phone: [facility] 01-12-2024 09:55-0400 Diastolic blood pressure 70 mm[Hg] Kenna Dahl GEOPOLITICS TEACHER Work Phone: [facility] 01-12-2024 09:55-0400 Heart rate 69 /min Kenna Dahl GEOPOLITICS TEACHER Work Phone: [facility] 01-12-2024 09:55-0400 SaO2% (BldA) [Mass fraction] 96 % Kenna Dahl GEOPOLITICS TEACHER Work Phone: [facility] 01-12-2024 09:55-0400 Systolic blood pressure 128 mm[Hg] Kenna Dahl GEOPOLITICS TEACHER Work Phone: [facility] 07-21-2023 14:20-0400 Body temperature 98.71 [degF] Ent Resident [facility] 07-21-2023 14:20-0400 Heart rate 73 /min Ent Resident [facility] 07-21-2023 14:20-0400 SaO2% (BldA) [Mass fraction] 97 % Ent Resident [facility] 07-13-2023 14:00-0400 Body temperature 97.1 [degF] MD Marie Nielson Work Phone: [facility] 07-13-2023 14:00-0400 Diastolic blood pressure 90 mm[Hg] MD Marie Nielson Work Phone: [facility] 07-13-2023 14:00-0400 Heart rate 78 /min MD Marie Nielson Work Phone: [facility] 07-13-2023 14:00-0400 Respiratory rate 18 /min MD Marie Nielson Work Phone: [facility] 07-13-2023 14:00-0400 SaO2% (BldA) [Mass fraction] 96 % MD Marie Nielson Work Phone: [facility] 07-13-2023 14:00-0400 Systolic blood pressure 168 mm[Hg] MD Marie Nielson Work Phone: [facility] 07-13-2023 01:56-0400 Body height 165.1 cm MD Maire Nielson Work Phone: [facility] 07-13-2023 01:56-0400 Body weight 116 kg MD Marie Nielson Work Phone: [facility] 05-28-2023 10:39-0500 Diastolic blood pressure 96 mm[Hg] MD Marie Nielson Work Phone: [facility] 05-28-2023 10:39-0500 Heart rate 68 /min MD Marie Nielson Work Phone: [facility] 05-28-2023 10:39-0500 Respiratory rate 16 /min MD Marie Nielson Work Phone: [facility] 05-28-2023 10:39-0500 SaO2% (BldA) [Mass fraction] 98 % MD Marie Nielson Work Phone: [facility] 05-28-2023 10:39-0500 Systolic blood pressure 167 mm[Hg] MD Marie Nielson Work Phone: [facility] 05-28-2023 08:40-0500 Body height 165.1 cm MD Marie Nielson Work Phone: [facility] 05-28-2023 08:40-0500 Body temperature 98.5 [degF] MD Marie Nielson Work Phone: [facility] 05-28-2023 08:40-0500 Body weight 114.4 kg MD Marie Nielson Work Phone: [facility] Encounters Encounter Date Encounter Type Care Provider Facility Start: 01-12-2024 End: 01-12-2024 Bamboo flowsheet Kenna Dahl GEOPOLITICS TEACHER Work Phone: [facility] Start: 01-12-2024 End: 01-12-2024 Bamboo flowsheet Kenna Dahl GEOPOLITICS TEACHER Work Phone: [facility] Start: 01-12-2024 End: 01-12-2024 Assay of hemosiderin, quant Kenna Dahl GEOPOLITICS TEACHER Work Phone: [facility] Start: 01-12-2024 End: 01-12-2024 Patient encounter procedure Kenna Dahl GEOPOLITICS TEACHER Work Phone: [facility] Comment on above: Medicare annual well ness visit, subsequent (Primary Dx); Chronic tension-type headache, not intractable; Other chronic pain; Atrial septal aneurysm (CMS/HCC); Right bundle branch block; Atrial septal defect within oval fossa; Irritable bowel syndrome with diarrhea; Fibromyalgia; Borderline type 2 diabetes mellitus; Hypothyroidism, unspecified type ([facility]/HCC); Morbid obesity due to excess calories ([facility]); Obesity (BMI 30-39.9); Adjustment disorder with other symptom ([facility]/HCC); Anxiety; Elevated LDL cholesterol level ([facility]); History of hysterectomy; Hypertriglyceridemia ([facility]); Lipoprotein deficiency disorder ([facility]); Chronic midline low back pain without sciatica; Intractable chronic migraine with aura and without status migrainosus ([facility]); Bloating; Pain of ovary; Mixed hyperlipidemia ([facility]); Rheumatoid arthritis, unspecified ([facility]); Routine general medical examination at health care facility; Screening for lung cancer; Nicotine dependence, cigarettes, uncomplicated Start: 01-12-2024 End: 01-12-2024 ambulatory KENNA DAHL Not Available Start: 10-27-2023 End: 10-27-2023 ambulatory KENNA DAHL Not Available Start: 08-26-2023 End: 08-26-2023 ambulatory KENNA DAHL Not Available Start: 08-18-2023 End: 08-18-2023 ambulatory KENNA DAHL Not Available Start: 07-21-2023 End: 07-23-2023 ambulatory UNKNOWN PROVIDER Facility:[facility] Start: 07-21-2023 End: 07-23-2023 Office outpatient new 30 minutes Ent Resident [facility] Otolaryngology (ENT) Comment on above: Epistaxis (Primary D x) Start: 07-16-2023 End: 07-16-2023 Emergency department patient visit ERNESTINA VOGT [facility] Start: 07-15-2023 End: 07-15-2023 Emergency department patient visit TOMMY VILLAGOMEZ Facility:[facility] Start: 07-14-2023 End: 07-14-2023 ambulatory KENNA DAHL Not Available Start: 07-13-2023 End: 07-13-2023 Emergency department patient visit Med Owens Facility:[facility] Start: 07-13-2023 End: 07-13-2023 Emergency department patient visit MD Marie Nielson Work Phone: [facility] Work Phone: Start: 07-09-2023 End: 07-09-2023 ambulatory LAURA Almanza FELTER Not Available Start: 06-09-2023 End: 06-09-2023 ambulatory LAURA Almanza FELTER Not Available Start: 06-02-2023 End: 06-02-2023 ambulatory KENNA DAHL Not Available Start: 05-28-2023 End: 05-28-2023 Emergency department patient visit Agustin Pimentel Facility:[facility] Start: 05-28-2023 End: 05-28-2023 Emergency department patient visit MD Marie Nielson Work Phone: [facility] Work Phone: Start: 03-24-2023 End: 03-24-2023 ambulatory MARIE NIELSON Not Available Start: 03-16-2023 End: 03-16-2023 ambulatory ELIECER Olivares MATEUSZRADHA Not Available Start: 07-13-2022 End: 07-13-[address] MARIE NIELSON Facility:[facility] Procedures Date Procedure Procedure Detail Performing Clinician Start: 12-17-2022 H/O: hysterectomy History of hystere ctomy Kenna Dahl GEOPOLITICS TEACHER Work Phone: Start: 01-04-2019 Mammography Kenna guerrero GEOPOLITICS TEACHER Work Phone: Start: 02-25-2018 Colonoscopy Kenna guerrero GEOPOLITICS TEACHER Work Phone: H/O: hysterectomy History of hysterectomy Kenna Dahl GEOPOLITICS TEACHER Work Phone: Plan of Treatment Date Care Activity Detail Author Start: 06-04-2028 Cholesterol [Mass/volume] in Serum or Plasma Cholesterol [facility] Start: 02-26-2028 Screening for malignant neoplasm of colon [facility] Start: 01-11-2025 Medicare Annual Wellness (AWV) Medicare Annual Wellness (AWV) [facility] Start: 10-26-2024 Urine screening for protein Diabetes: Urine Protein Screening [facility] Start: 06-03-2024 End: 01-11-2025 Lipid 1996 panel - Serum or Plasma Lipid panel Lab Routine Mixed hyperlipidemia (CMS/HCC) Expected: 06/03/2024 (Approximate), Expires: 01/11/2025 [facility] Work Phone: Comment on above: Expected: 06/03/2024 (Approximate), Expires: 01/11/2025 Start: 01-12-2024 End: 01-11-2025 CT Chest for screening WO contrast CT lung screening low dose Imaging Routine Screening for lung cancer Nicotine dependence, cigarettes, uncomplicated Expected: 01/12/2024, Expires: 01/11/2025 [facility] Comment on above: Expected: 01/12/2024 , Expires: 01/11/2025 Start: 01-12-2024 End: 01-11-2025 Hemoglobin A1c/Hemoglobin.total in Blood Hemoglobin A1c Lab Routine Borderline type 2 diabetes mellitus Expected: 01/12/2024 (Approximate), Expires: 01/11/2025 [facility] Comment on above: Expected: 01/12/2024 (Approximate), Expires: 01/11/2025 Start: 01-12-2024 End: 01-11-2025 Microalbumin/Creatinin e panel in random Urine Microalbumin / creatinine, urine ratio Lab Routine Borderline type 2 diabetes mellitus Expected: 01/12/2024 (Approximate), Expires: 01/11/2025 [facility] Comment on above: Expected: 01/12/2024 (Approximate), Expires: 01/11/2025 Start: 01-12-2024 End: 01-12-2024 Patient encounter procedure 01/12/2024 10:00 AM EDT Office Visit [facility] [address] [facility] [address] [place] [id number] Kenna Dahl NP [address] [facility] [address] [place] [address] Arrived [facility] Comment on above: Arrived Start: 12-13-2023 Influenza vaccination Influenza Vacc ine (#1) [facility] Start: 09-01-2023 Hemoglobin A1c measurement Diabetes: Hemoglobin A1C [facility] Start: 05-28-2023 [facility] Start: 01-05-2020 Screening for malignant neoplasm of breast [facility] Start: 2016 Shingles (RZV) Vacci ne (1 of 2) Shingles (RZV) Vaccine (1 of 2) [facility] Start: 09-11-2014 Annual wellness visit Annual W ellness [facility] (G0438) [facility] Start: 09-13-2011 Screening for malignant neoplasm of colon [facility] Start: 09-13-1987 Screening for malignant neoplasm of cervix Pap Smear [facility] Start: 1985 Hepatitis A (HAV) Vaccine (optional start 19+ years) Hepatitis A (HAV) Vaccine (optional start 19+ years) [facility] Start: 1984 Hepatitis C screening Hepatitis C An tibody [facility] Start: 1984 Tetanus + diphtheria + acellular pertussis vaccine (product) Tdap [facility]oster [facility] Start: 1976 Glaucoma screening Diabetes: R etinopathy Screening [facility] Start: 03-14-1967 COVID-19 Vaccine (#1) COVID-19 Vacci ne (#1) [facility] Start: 1965 Hepatitis B vaccination Hepatitis B (HBV) Vaccine (1 of 3 - 3-dose series) [facility] Start: 1966 Medicare Annual Wellness (AWV) Medicare Annual Wellness (AWV) [facility] Start: 1965 Screening for malignant neoplasm of colon [facility] Bacterial cytolethal distending toxin cdt gene [Presence] in Unspecified specimen by BEE with probe detection [facility] Patient Education Diarrhea, Adult ED [facility] Work Phone: Patient referral [facility] Work Phone: Payers Date Payer Category Payer Private Health Insurance [facility] UMR [id number] 2023-Present PPO [id number] 2023 Self-pay [id number] 2023 Unknown [id number] 2023 Unknown [id number] 2023 Unknown [id number] 2013 Medicare [id number] 1965 Unknown [id number] 2.16.840.1.991304.3.579.2. 593 1965 Unknown [id number] 2.16.840.1.285322.3.579.2. 732 1965 Unknown [id number] 2.16.840.1.399434.3.579.2. 732 1965 Unknown [id number] 2.16.840.1.823653.3.579.2. 732 1965 Unknown [id number] 2.16.840.1.486850.3.579.2. 9 1965 Unknown [id number] 2.16.840.1.419948.3.579.2. 1259 1965 Unknown [id number] 2.16840.1.255495.3.579.2. 9 1966 Unknown [id number] 2.16.840.1.057424.3.579.2. 1259 1966 Unknown [id number] 2.16.840.1.795726.3.579.2. 9 1966 Unknown [id number] 2.16.840.1.534821.3.579.2. 1259 1966 Unknown [id number] 2.16.840.1.158527.3.579.2. 1259 1966 Unknown [id number] 2.16.840.1.210627.3.579.2. 1259 1966 Unknown [id number] 2.16.840.1.936701.3.579.2. 9 1965 Unknown [id number] 2.16.840.1.850086.3.579.2. 1259 1959 Medicare [id number] 1959 Unknown [id number] Unknown [id number] 2.16.840.1.388529.3.579.2. 531 Unknown [id number] 2.16.840.1.862725.3.579.2. 531 Social History Date Type Detail Facility Start: 05-28-2023 End: 01-12-2024 Tobacco smoking status DCIS Ex-smoker (finding) [facility] Start: 1965 Sex Assigned At Female F [facility] Start: 03-23-2023 End: 07-13-2023 Tobacco smoking status DCIS Never smoked tobacco (finding) [facility] Tobacco smoking status [facility] Tobacco smoking consumption unknown [facility] Start: 1965 Sex Assigned At Not on file [facility] Start: 08-25-2023 End: 11-12-2023 Gender identity Not on file [facility] Work Phone: Start: 03-23-2023 End: 01-12-2024 Tobacco use and exposure Smokeless tobacco non-user [facility] Start: 10-27-2023 End: 01-12-2024 Alcoholic beverage intake Lifetime non-drinker (finding) [facility] Start: 08-25-2023 End: 11-12-2023 History of Social function [facility] Work Phone: How often do you nee d to have someone help you when you read instructions, pamphlets, or other written material from your doctor or pharmacy [SILS] Never [facility] Work Phone: Within the last year , have you been afraid of your partner or ex-partner? No [facility] Are you now , , , , never or living with a partner? [facility] How often to you hav e a drink containing alcohol? Never [facility] Do you feel stress - tense, restless, nervous, or anxious, or unable to sleep at night because your mind is troubled all the time - these days [OSQ] Only a little [facility] (I/We) worried whether (my/our) food would run out before (I/we) got money to buy more. Never true [facility] Start: 03-24-2023 Alcohol Comment Caffeine Intak e: >1 gallon daily tea [facility] Start: 01-11-1991 History of tobacco use Current smoker [facility] Start: 01-11-1991 History of tobacco use Cigarette Smoker [facility] NEGATED: Highlighted row [facility] History of Present illness Narrative 01-12-2024 Kenna Dahl, GEOPOLITICS TEACHER - 01/12/2024 10:00 AM EDT Note Date & Type Note Facility 01-12-2024 History of Presen t illness Narrative Images from the original note were not included. Subjective : Chief Complaint: Julieta Villa is an 58 y.o. female here for an annual wellness visit. I have reviewed and reconciled the history and medication list with the patient today. Current Outpatient Medications Medication Sig Dispense Refill amLODIPine (Norvasc) 5 MG tablet Take 1 tablet (5 mg) by mouth Daily 30 tablet 11 aspirin 81 MG EC tablet Take 81 mg by mouth Daily Bacillus Coagulans-Inulin (Probiotic) 1-250 BILLION-MG capsule as directed Orally biotin 1000 MCG tablet 1 (one) time each day at the same time cholecalciferol (Vitamin D-3) 25 MCG tablet Take 25 mcg by mouth Daily cyanocobalamin (Vitamin B-12) 100 MCG tablet Take 100 mcg by mouth Daily levothyroxine (Synthroid, Levoxyl) 100 MCG tablet Take 1 tablet (100 mcg) by mouth in the morning. Take before meals. Pt reports she chooses to take med only once a month. 90 tablet 0 spironolactone (Aldactone) 25 MG tablet Take 25 mg by mouth in the morning. triamcinolone (Kenalog) 0.1 % cream Apply to affected areas, up to twice a day when flared, do not use one the face, groin, or underarms, 30 day supply 454 g 11 Semaglutide-Weight Management 0.5 MG/0.5ML solution auto-injector Inject 0.5 mg under the skin every 7 (seven) days 2 mL 0 No current facility-administered medications for this visit. Review of Systems Constitutional: Negative. HENT: Negative. Eyes: Negative. Respiratory: Negative. Cardiovascular: Negative. Gastrointestinal: Negative. Genitourinary: Negative. Musculoskeletal: Negative. Skin: Negative. Neurological: Negative. Psychiatric/Behavioral: Negative. All other systems reviewed and are negative. Endocrine: Negative. List of current healthcare providers: Patient Care Team: Marie Nielson MD as PCP - General (Family Medicine) Marie Nielson MD as PCP - ACO Reach Lina Thursday, RAJANI as Licensed Practical Nurse (Family Medicine) Medicare Annual Visit Over the past 2 weeks, how often have you been bothered by any of the following problems? Little interest or pleasure in doing things: Not at all Feeling down, depressed, or hopeless: Not at all Patient Health Questionnaire-2 Score: 0 Stokes Fall Risk History of Falling, Immediate or Within 3 Months: No Secondary Diagnosis: No Ambulatory Aid: Walks without aid/bedrest/nurse assist Health Risk Assessment Form Do you need help eating, bathing, using the toilet, dressing, or getting around your home?: No Can you prepare your own meals?: Yes Can you do your own housework without help?: Yes Can you shop for groceries or clothes without help?: Yes Do you exercise for about 20 minutes 3 or more days a week?: Yes How confident are you that you can control and manage most of your health problems?: Very confident Can you mange your money, credit cards and accounts, pay bills and taxes?: Yes Cognitive Screening Three Word Registration: Apple, Watch, Nettie Clock Drawing: Normal Clock - 2 Three Word Recall: All 3 words correct - 3 Total Score (0-5 Points): 5 Pain Assessment Pain Score: 5 - Moderate pain Advance Care Planning Do you have a living will?: Yes Do you have a medical power of employment law attorney?: No Objective : BP 128/70 Pulse 69 Ht 5' 6 Wt 254 lb SpO2 96% BMI 41.00 kg/m No results found. Physical Exam Vitals reviewed. Constitutional: Appearance: Normal appearance. HENT: Head: Normocephalic. Nose: Nose normal. Mouth/Throat: Mouth: Mucous membranes are moist. Pharynx: Oropharynx is clear. Eyes: Conjunctiva/sclera: Right eye: Right conjunctiva is injected. Left eye: Left conjunctiva is injected. Comments: Erythema inner canthus Cardiovascular: Rate and Rhythm: Normal rate and regular rhythm. Pulmonary: Effort: Pulmonary effort is normal. Breath sounds: Normal breath sounds. Musculoskeletal: Cervical back: Normal range of motion. Skin: General: Skin is warm and dry. Neurological: General: No focal deficit present. Mental Status: She is alert and oriented to person, place, and time. Psychiatric: Mood and Affect: Mood normal. Behavior: Behavior normal. Assessment/Plan : The following health maintenance schedule was reviewed with the patient and provided in printed form in the after visit summary: Health Maintenance Topic Date Due Medicare Annual Wellness (AWV) Never done Diabetes: Retinopathy Screening Never done Mammogram 01/05/2020 Diabetes: Hemoglobin A1C 09/01/2023 Influenza Vaccine (1) Never done Diabetes: Urine Protein Screening 10/26/2024 Colorectal Cancer Screening 02/26/2028 Advance Care Planning Has living will and DPOA for healthcare 1. Medicare annual wellness visit, subsequent Reviewed all relevant preventative screenings with the patient in detail. Medicare Wellness form completed and will be scanned into patient's chart. All needed testing was ordered. Will continue with yearly Medicare Wellness exams. 2. Chronic tension-type headache, not intractable This is a chronic medical condition that is stable since last assessment. No changes in treatment are suggested at this time. 3. Other chronic pain - ibuprofen 800 MG tablet; Take 1 tablet (800 mg) by mouth in the morning and 1 tablet (800 mg) in the evening and 1 tablet (800 mg) before bedtime. Dispense: 90 tablet; Refill: 0 This is a chronic medical condition that is stable since last assessment. No changes in treatment are suggested at this time. 4. Atrial septal aneurysm (CMS/HCC) This is resolved. She was seen by cardiology and it is resolved. 5. Right bundle branch block This is a chronic medical condition that is stable since last assessment. No changes in treatment are suggested at this time. 6. Atrial septal defect within oval fossa Had surgery to resolve this problem. This is a chronic medical condition that is stable since last assessment. No changes in treatment are suggested at this time. 7. Irritable bowel syndrome with diarrhea This is a chronic medical condition that is stable since last assessment. No changes in treatment are suggested at this time. 8. Fibromyalgia - ibuprofen 800 MG tablet; Take 1 tablet (800 mg) by mouth in the morning and 1 tablet (800 mg) in the evening and 1 tablet (800 mg) before bedtime. Dispense: 90 tablet; Refill: 0 This is a chronic medical condition that is stable since last assessment. No changes in treatment are suggested at this time. 9. Borderline type 2 diabetes mellitus - Microalbumin / creatinine, urine ratio; Future - Hemoglobin A1c; Future - Microalbumin / creatinine, urine ratio - Hemoglobin A1c We discussed today, the importance of proper diabetic control. We discussed possible complications of diabetes, including loss of vision, renal failure, increased risk of heart attacks and strokes, blood vessel and/or nerve damage. We discussed the recommended changes to reduce your blood sugars and minimize the risk of these complications. We discussed diabetic goals, including keeping A1C <7.0% and blood pressure < 130/70. The plan for achieving these goals is adherence to medications, diet, and regular activity as discussed during today's visit. We discussed current barriers to achieving these goals. We discussed dietary goals. We discussed calorie counting, as well as decreasing carbohydrate and simple sugar intake. Reviewed portion control with the patient. If the patient still has questions on this, a referral to a Dietitian can be arranged. I reviewed medications that aid in diabetic control. We discussed proper dosing and educated the patient on possible side effects and complications. The patient verbalized understanding of these instructions. 10. Hypothyroidism, unspecified type (CMS/HCC) This is a chronic medical condition that is stable since last assessment. No changes in treatment are suggested at this time. 11. Morbid obesity due to excess calories (CMS/HCC) Discussed goal of BMI < 30. Advised on weight loss options. Encouraged diet and exercise. Discussed with patient appropriate lifestyle modification changes necessary for weight management, heart healthy eating and overall health promotion. Discussed minimizing high carb, high sugar, high sodium, portion control, and processed foods while making healthy choice replacements. Additionally discussed recommendations of 30 minutes of aerobic exercise at least 5 days per week, that includes, walking, and chair exercises. . Instructed importance of drinking adequate water consumption (if not on fluid restriction) with minimal sugar and caffiene. 12. Obesity (BMI 30-39.9) Discussed goal of BMI < 30. Advised on weight loss options. Encouraged diet and exercise. Discussed with patient appropriate lifestyle modification changes necessary for weight management, heart healthy eating and overall health promotion. Discussed minimizing high carb, high sugar, high sodium, portion control, and processed foods while making healthy choice replacements. Additionally discussed recommendations of 30 minutes of aerobic exercise at least 5 days per week, that includes, walking, and chair exercises. . Instructed importance of drinking adequate water consumption (if not on fluid restriction) with minimal sugar and caffiene. - Semaglutide-Weight Management 0.5 MG/0.5ML solution auto-injector; Inject 0.5 mg under the skin every 7 (seven) days Dispense: 2 mL; Refill: 0 13. Adjustment disorder with other symptom (CMS/HCC) Take medication as directed. Verbalizes understanding of the need to be seen in the ER for excessive stress, elevated blood pressure or palpitations. Advised on relaxation methods to decrease anxiety and depression. Pt offers understanding of treatment plan. 14. Anxiety Take medication as directed. Verbalizes understanding of the need to be seen in the ER for excessive stress, elevated blood pressure or palpitations. Advised on relaxation methods to decrease anxiety and depression. Pt offers understanding of treatment plan. 15. Elevated LDL cholesterol level (CMS/HCC) This is a chronic medical condition that is stable since last assessment. No changes in treatment are suggested at this time. 16. History of hysterectomy This is a chronic medical condition that is stable since last assessment. No changes in treatment are suggested at this time. 17. Hypertriglyceridemia (CMS/HCC) This is a chronic medical condition that is stable since last assessment. No changes in treatment are suggested at this time. 18. Lipoprotein deficiency disorder (CMS/HCC) This is a chronic medical condition that is stable since last assessment. No changes in treatment are suggested at this time. 19. Chronic midline low back pain without sciatica This is a chronic medical condition that is stable since last assessment. No changes in treatment are suggested at this time. - ibuprofen 800 MG tablet; Take 1 tablet (800 mg) by mouth in the morning and 1 tablet (800 mg) in the evening and 1 tablet (800 mg) before bedtime. Dispense: 90 tablet; Refill: 0 20. Intractable chronic migraine with aura and without status migrainosus (CMS/HCC) This is a chronic medical condition that is stable since last assessment. No changes in treatment are suggested at this time. 21. Bloating This is a chronic medical condition that is stable since last assessment. No changes in treatment are suggested at this time. 22. Pain of ovary This is a chronic medical condition that is stable since last assessment. No changes in treatment are suggested at this time. 23. Mixed hyperlipidemia (CMS/HCC) This is a chronic medical condition that is stable since last assessment. No changes in treatment are suggested at this time. - Lipid panel; Future - Lipid panel 24. Rheumatoid arthritis, unspecified (CMS/HCC) This is a chronic medical condition that is stable since last assessment. No changes in treatment are suggested at this time. - ibuprofen 800 MG tablet; Take 1 tablet (800 mg) by mouth in the morning and 1 tablet (800 mg) in the evening and 1 tablet (800 mg) before bedtime. Dispense: 90 tablet; Refill: 0 25. Routine general medical examination at health care facility Wellness form reviewed in detail with the patient. Encouraged patient to stay up to date on immunizations and preventative testing. Encouraged healthy diet, stay active. Will continue with yearly wellness exams. 26. Screening for lung cancer Await CT results - CT lung screening low dose; Future 27. Nicotine dependence, cigarettes, uncomplicated This is a chronic medical condition that is stable since last assessment. No changes in treatment are suggested at this time. - CT lung screening low dose; Future Orders Placed This Encounter Procedures Lipid panel Standing Status: Future Number of Occurrences: 1 Standing Expiration Date: 01/11/2025 Order Specific Question: Print requisition? Answer: No Microalbumin / creatinine, urine ratio Standing Status: Future Number of Occurrences: 1 Standing Expiration Date: 01/11/2025 Order Specific Question: Print requisition? Answer: No Hemoglobin A1c Standing Status: Future Number of Occurrences: 1 Standing Expiration Date: 01/11/2025 Order Specific Question: Print requisition? Answer: No Electronically signed by Kenna Dahl NP on January 12, 2024 documented in this encounter [facility] History of Present illness Narrative 07-23-2023 Dieudonne Kinney MD - 07/23/2023 4:42 PM EDTSSuzy bennett - 07/21/2023 2:19 PM Sher Quintanilla DO [...] days, nasal saline, and keflex. Bleeding reoccured /3 in emergency room and was resolved with angiocath around packing and pressure. Again, her pressure was elevated at that time 144 systolic. This was her first nose bleed since childhood and denies any trauma to the nose. She normally follows with Dr. Floyd in [place] but has elected to come here for [...] Acevedo, PGY-1 Otolaryngology Head and Neck Surgery [facility] Service Pager: [phone] documented in this encounter [facility] Clinical Note 07-16-2023 Note Date & Type [...] role in this case. PLEASE SEE OTHER ATTENDING/RESIDENT/PHYSICIAN/MEMBER OF THE LEGISLATIVE COUNCIL/PA NOTATION Justin Gonsalez MD [email or web address] Clinical Note 07-15-2023 Note Date & [...] control with multiple rhinorockets. Patient transferred to [facility] for ENT evaluation. Patient on ASA 81 [...] rhinorocket attempts at OSH. Patient transferred to [facility] for ENT evaluation. Nasal exam with significant [...] follow-up with ENT - patient lives in [place] and has standing appointment with Dr. Floyd and wishes to follow-up with h (more content not included)... [facility] [employer] [facility] Evaluation note Note Date & Type Note Facility Evaluation note No assessment information availa [facility] Work Phone: Evaluation note Note Date & Type Note Facility Evaluation note Diagnosis Epistaxis- [facility] Date & Type Note Facility Evaluation note Diagnosis Medicare annual wellness visit, subsequent- Primary Chronic tension-type headache, not intractable Chronic tension type headache Other chronic pain Atrial septal aneurysm (CMS/HCC) Aneurysm of heart (wall) Right bundle branch block Atrial septal defect within oval fossa Irritable bowel syndrome with diarrhea Irritable bowel syndrome Fibromyalgia Unspecified myalgia and myositis Borderline type 2 diabetes mellitus Hypothyroidism, unspecified type (CMS/HCC) Morbid obesity due to excess calories (CMS/HCC) Obesity (BMI 30-39.9) Adjustment disorder with other symptom (CMS/HCC) Anxiety Anxiety state, unspecified Elevated LDL cholesterol level (CMS/HCC) History of hysterectomy Acquired absence of both cervix and uterus Hypertriglyceridemia (CMS/HCC) Pure hyperglyceridemia Lipoprotein deficiency disorder (CMS/HCC) Lipoprotein deficiencies Chronic midline low back pain without sciatica Intractable chronic migraine with aura and without status migrainosus (CMS/HCC) Bloating Flatulence, eructation, and gas pain Pain of ovary Mixed hyperlipidemia (CMS/HCC) Mixed hyperlipidemia Rheumatoid arthritis, unspecified (CMS/HCC) Routine general medical examination at health care facility Routine general medical examination at a health care facility Screening for lung cancer Nicotine dependence, cigarettes, uncomplicated documented in this encounter [facility] Discharge instructions Note Date & Type Note Facility Hospital Discharge instructions Additional Instructions Follow-up with your primary care doctor Return to ED if develop worsening symptoms or concerns [facility] Work Phone: Summary Purpose Family History Relationship Condition Age at Onset Recorded Date/T kim Not Specified Borderline diabetes mellitus Unknown sister Congenital anomaly of heart Unknown father Borderline diabetes mellitus Unknown Advance Directives Advance Directive Response Recorded Date/ Time Advance Directives No February 5:59am Advance Directive Response Recorded Date/ Time Advance Directives No February 6:59am Chief Complaint and Reason for Visit Chief Complaint Diarrhea Chief Complaint Diarrhea NOSE BLEEDING Reason for Referral Specialty Diagnoses / Procedures Referred By Contac t Referred To Contact Radiology Diagnoses Screening for lung cancer Nicotine dependence, cigarettes, uncomplicated Procedures CT lung screening low dose Kenna Dahl, GEOPOLITICS TEACHER [address] [facility] [address] [place] [address] [facility] [address] [place] [address] Referral ID Status Reason Start Date Expiration Date V isits Requested Visits Authorized [id number] Authorized 01/12/2024 07/10/2024 1 1 Additional Source Comments INFORMATION SOURCE (unrecogn ized section and content) DATE CREATED AUTHOR [facility]/2021 [facility] DATE CREATED AUTHOR AUTHOR'S ORGANIZ ATION 07/16/2022 [facility] DATE CREATED AUTHOR AUTHOR'S ORGANIZ ATION 07/25/2023 [facility] DATE CREATED AUTHOR AUTHOR'S ORGANIZ ATION 07/25/2023 [facility] DATE CREATED AUTHOR AUTHOR'S ORGANIZ ATION 01/13/2024 [facility] [employer] Care Teams (unrecognized sec tion and content) Team Status: Active Member Role Status Kelly Nielson MD Primary Care Provider Active Team Status: Inactive Member Role Status Kelly Nielson MD Primary Care Provider Active S tart: May 28, 2023 End: May 28, 2023 Agustin Pimentel DO Emergency Provider Active Sta rt: May 28, 2023 End: May 28, 2023 Team Status: Inactive Member Role Status Kelly Nielson MD Primary Care Provider Active S tart: July 13, 2023 End: July 13, 2023 Med Owens DO Emergency Provider Active St art: July 13, 2023 End: July 13, 2023 Physical Chemist Relationship Specialty Start Date End Date Marie Nielson MD [address] [place] [address] PCP - ACO Reach 09/04/22 Marie Nielson MD [address] [place] [address] PCP - General Family Medicine 08/19/22ThursdayLina LPN [address] [place] [address] Licensed Practical Nurse Family Medicine 08/07/23 Physical Chemist Relationship Specialty Start Date End Date Marie Nielson MD [address] [place] [address] PCP - ACO Reach 09/04/22 Marie Nielson MD [address] [place] [address] PCP - General Family Medicine 08/19/22ThursdayLina LPN [address] [place] [address] Licensed Practical Nurse Family Medicine 08/07/23 Goals (unrecognized section and content) Goals may be documented in a n alternate sectionGoals may be documented in an alternate section Reason for Visit (unrecogniz ed section and content) Reason Comments Monitoring/follow-up Packing removal fro m nose Reason Comments Medicare Annual Wellness Visit Subsequen t discuss medication Pt started the lowes t dose semeglutide she is wondering if dose can be increased--send to [facility] FOR RECORDS PERTAINING TO PATIENTS WHO ARE [...] BE BASED ON THE PRIMARY CLINICAL RECORDS. [facility] [employer] [facility]. provides no warranty or guarantee of the accuracy or completeness of information in this document.
--- NOTE | 2024-01-18 12:55 | CT_ITS ---
[address] [address] Patient Name: JULIETA CASAS MRN: [id number] date: 1965 Sex: F Assigned Patient Location: CT Current Patient Location: Accession/Order Number: [id number] Exam Date: 01/18/2024 12:48 Report Date: 01/19/2024 08:45 At the request of: KENNA SANCHEZ Procedure: CT lung screening low-dose EXAMINATION: CT lung screening low-dose HISTORY: History Of Nicotine Dependence COMPARISON: No relevant comparison available. TECHNIQUE: Axial, Coronal, and Sagittal images were created without the administration of IV contrast material. Dose reduction techniques were achieved by using automated exposure control and/or adjustment of mA and/or kV according to patient size and/or use of iterative reconstruction technique. FINDINGS: LUNGS: No visible pulmonary disease. PLEURA: No mass, effusion, or pneumothorax. VASCULATURE: No abnormality. LUPE: No mass or pathologic adenopathy. MEDIASTINUM: No mass or pathologic adenopathy. CARDIAC: No enlargement, pericardial thickening, or pericardial effusion. Coronary Artery calcifications: AORTA: No aneurysm or dissection. CHEST WALL: No mass or axillary adenopathy BONES: No bone lesion or fracture. LIMITED ABDOMEN: No suspicious findings. Limited images of the upper abdomen. OTHER: Negative. CT/CT lung screening low-dose IMPRESSION: 1. Lung-RADS Category 1 Negative. No nodules and definitely benign nodules. Continue annual screening with LDCT in 12 months. Electronically authenticated by: MG VENEGAS Date: 01/19/2024 08:45
== END 2024-01-18 12:26 | disposition home or self-care (01) ==
LOC: CT 12:26
PROVIDERS: PCP Family Medicine; Visit Provider Nurse Practitioner Family
DX: Z87.891 Personal history of nicotine dependence (principal); Z12.2 Encounter for screening for malignant neoplasm of respiratory organs
CPT/HCPCS: 71271

== ENCOUNTER 2024-02-09 14:12 | Outpatient (OUT) | payer OTHER, MEDICARE, SELFPAY ==
--- OUTSIDE RECORDS SUMMARY | 2024-02-09 14:17 | XMS_ITS | CCD ---
Author Organization [facility] Care Team Providers Care Sand Slinger Operator Name Role Phone DR MARIE NIELSON Primary Care Unavailable WOOD De Leon, DR BURNHAM Attending Unavailable WOOD De Leon, DR BURNHAM Consulting Unavailable WOOD De Leon, DR BURNHAM Admitting Unavailable MD Marie Nielson Primary Care Provider DO Agustin Pimentel Emergency Provider MD Marie Nielson Primary Care Provider [phone] DO Agustin iPmentel Emergency Provider DO Med Owens Emergency Provider [...] Unavailable Marie Nielson MD Primary Care Provider [phone] Thursday [employer]AIL [employer] RESTAURANT, Lina Unavailable KENNA DAHL Attending Unavailable LAURA [...] (Antibiotic) Drug allergy (disorder) 03-02-20 13 The [facility] (3 sources) Eucalyptus extract; Translations: [eucalyptus] Drug Allergy 05-28-19 Unknown [address] [facility] (3 sources) Sulfonamides (Antibiotic); Translations: [Sulfa (Sulfonamide Antibiotics)] Allergy to substance 05-28-[address] [facility] (2 sources) Sulfa Drugs Cross Reactors; Translations: [SULFA DRUGS CROSS REACTORS] Propensity to adverse reactions to drug 07-15-19 Rash, Diarrhea [facility] (3 sources) Eucalyptus oil Drug Allergy 07-13-19 Unknown [facility] (3 sources) Sulfanilamide Allergy to substance 12-18-19 [facility] (3 sources) Sulfonamides (Antibiotic) Drug Allergy 07-13-19 Rash [facility] Medications Current Medications Medication Drug Class(es) [...] Daily January 06, 2019 12:00am bacillus coagulans [id number] unt / inulin 250 mg oral capsule [...] Onset: 05-28-2023 Episodic Other aftercare (1 source) prison (current) use of aspirin; Translations: [TORQUE TESTER CURRENT USE OF ASPIRIN] Onset: 07-14-2022 Episodic Other aftercare (1 source) Other long-term (current) drug therapy; Translations: [OTH TORQUE TESTER CURRENT DRUG THERAPY] Onset: 07-14-2022 Episodic Other [...] Interpretation Reference Range Facility Progress Noteson 07-23-2023 [employer] Press Operator Authentication Interface Message Text Seen and examined. [...] resident's note. Dieudonne Kinney MD Normal [facility] Progress Noteson 07-21-2023 [employer]key Press Operator Authentication Interface Message Text Patient was identified by name and date of . Suzy Cuadra Patient in exam room, vital signs taken, ready for MD exam. Normal The [facility] [employer]key Press Operator Authentication Interface Message Text ENT New Patient [...] She normally follows with Dr. Floyd in [place] but has elected to come here for [...] Acevedo, PGY-1 Otolaryngology Head and Neck Surgery [facility] Service Pager: [phone] Normal [facility] BASIC METABOLIC PANELon 04-0 Anion gap [Moles/Vol] 16 mmol/L Normal 10-20 [facility] Comment on above: Performed By: #### h iv1 hiv2 agab scrn, CH8 ####S PATHOLOGY [id number] [place], [place], Calcium [Mass/Vol] 8.9 mg/dL Normal 8.6-10.3 [facility] Comment on above: Performed By: #### h iv1 hiv2 agab scrn, CH8 ####[facility] [id number] [place], [place], Chloride [Moles/Vol] 106 mmol/L Normal 98-107 [facility] Comment on above: Performed By: #### h iv1 hiv2 agab scrn, CH8 ####[facility] [id number] [place], CO2 [Moles/Vol] 23 mmol/L Normal 21-31 [facility] Comment on above: Performed By: #### h iv1 hiv2 agab scrn, CH8 ####S PATHOLOGY [id number] [place], Creatinine [Mass/Vol] 0.74 mg/dL Normal 0.60-1.20 The [facility] Comment on above: Performed By: #### h iv1 hiv2 agab scrn, CH8 ####S PATHOLOGY [id number] [place], ESTIMATED GFR (CKD-EPI) 95 mL/min/1.73sqm Normal >=60 [facility] Comment on above: Result Comment: 2020 [...] Inclusion of Race in Diagnosing Kidney Disease. [place] Journal of Kidney Diseases 202;79(2):268-88.e1. 2. N Engl J Med 2020 Vol. 385 Issue 19 Pages 0231-6378 Performed By: #### h iv1 hiv2 agab scrn, CH8 ####S PATHOLOGY [id number] [place], Glucose [Mass/Vol] 141 mg/dL High 74-109 [facility] Comment on above: Performed By: #### h iv1 hiv2 agab scrn, CH8 ####S PATHOLOGY [id number] [place], Potassium [Moles/Vol] 4.9 mmol/L Normal 3.5-5.0 The [facility] Comment on above: Result Comment: Hemo lysis present Performed By: #### h iv1 hiv2 agab scrn, CH8 ####[facility] [id number] [place], Sodium [Moles/Vol] 140 mmol/L Normal 136-145 The [facility] Comment on above: Performed By: #### h iv1 hiv2 agab scrn, CH8 ####S PATHOLOGY [id number] [place], Urea nitrogen [Mass/Vol] 28 mg/dL High 7-25 [facility] Comment on above: Performed By: #### h iv1 hiv2 agab scrn, CH8 ####[facility] PATHOLOGY [id number] [place], CBC WITH DIFFERENTIALon 04-0 -2023 Basophils (Bld) [#/Vol] 0.07 10*3/uL Normal 0.00-0.20 [facility] Comment on above: Performed By: #### C BCDSAT ####[facility] PATHOLOGY [id number] [place], Basophils/100 WBC (Bld) 0.8 % Normal <=1.9 [facility] Comment on above: Performed By: #### C BCDSAT ####[facility] PATHOLOGY [id number] [place] [address], Eosinophils (Bld) [#/Vol] 0.03 10*3/uL Normal 0.00-0.70 [facility] Comment on above: Performed By: #### C BCDSAT ####[facility] PATHOLOGY [id number] [place] [address], Eosinophils/100 WBC (Bld) 0.4 % Normal 0.1-4.[address] [facility] Comment on above: Performed By: #### C BCDSAT ####[facility] PATHOLOGY [id number] [place] [address], Erythrocyte distribution width (RBC) [Ratio] 13.1 % Normal 11.5-14.5 [facility] Comment on above: Performed By: #### C BCDSAT ####[facility] PATHOLOGY [id number] [place], Hematocrit (Bld) [Volume fraction] 35.9 % Low 36.0-46.0 [facility] Comment on above: Performed By: #### C BCDSAT ####[facility] PATHOLOGY [id number] [place], Hemoglobin (Bld) [Mass/Vol] 12.4 g/dL Normal 12.0-15.0 [facility] Comment on above: Performed By: #### Dayan TEEAT ####[facility] PATHOLOGY [id number] [place], Lymphocytes (Bld) [#/Vol] 1.09 10*3/uL Normal 1.00-4.80 [facility] Comment on above: Performed By: #### Dayan TEEAT ####[facility] PATHOLOGY [id number] [place] [address], Lymphocytes/100 WBC (Bld) 13.4 % Low 24.0-44.0 [facility] Comment on above: Performed By: #### Dayan TEEAT ####[facility] PATHOLOGY [id number] [place] [address], MCH (RBC) [Entitic mass] 30.4 pg Normal 26.0-34.0 [facility] Comment on above: Performed By: #### Dayan TEEAT ####[facility] PATHOLOGY [id number] [place] [address], MCHC (RBC) [Mass/Vol] 34.4 g/dL Normal 32.0-35.9 [facility] Comment on above: Performed By: #### Dayan TEEAT ####[facility] PATHOLOGY [id number] [place] [address], MCV (RBC) [Entitic vol] 88 fL Normal 80-100 T [facility] Comment on above: Performed By: #### Dayan TEEAT ####[facility] PATHOLOGY [id number] [place] [address], MONOCYTE DISTRIBUTION WIDTH 20 Normal <=20 [facility] Comment on above: Performed By: #### Dayan TEEAT ####[facility] PATHOLOGY [id number] [place], Monocytes (Bld) [#/Vol] 0.33 10*3/uL Normal 0.20-1.00 [facility] Comment on above: Performed By: #### Dayan TEEAT ####[facility] PATHOLOGY [id number] [place] [address], Monocytes/100 WBC (Bld) 4.1 % Normal 2.0-11.0 T he [facility] Comment on above: Performed By: #### Dayan TEEAT ####[facility] PATHOLOGY [id number] [place], Neutrophils (Bld) [#/Vol] 6.64 10*3/uL Normal 1.50-8.00 [facility] Comment on above: Performed By: #### Dayan TEEAT ####[facility] PATHOLOGY [id number] [place], Neutrophils/100 WBC (Bld) 81.3 % High 31.0-76.0 [facility] Comment on above: Performed By: #### Dayan TEEAT ####[facility] PATHOLOGY [id number] [place], Platelet mean volume (Bld) [Entitic vol] 8.8 fL Normal 7.5-11.2 [facility] Comment on above: Performed By: #### Dayan TEEAT ####[facility] PATHOLOGY [id number] [place], Platelets (Bld) [#/Vol] 284 10*3/uL Normal 150-400 [facility] Comment on above: Performed By: #### Dayan TEEAT ####[facility] PATHOLOGY [id number] [place], RBC (Bld) [#/Vol] 4.07 10*6/uL Normal 4.00-5.20 [facility] Comment on above: Performed By: #### Dayan TEEAT ####[facility] PATHOLOGY [id number] [place], WBC (Bld) [#/Vol] 8.2 10*3/uL Normal 4.5-11.5 [facility] Comment on above: Performed By: #### Dayan TEEAT ####[facility] PATHOLOGY [id number] [place], [facility] 07-16-2023 [employer] Operator Authentication Interface Message Text ---- Attestation signed [...] control with multiple rhinorockets. Patient transferred to [facility] for ENT evaluation. Patient on ASA 81 [...] follow-up with ENT - patient lives in [place] and has standing appointment with Dr. Floyd and wishes to follow-up with him for packing removal; if she wants to follow with us at [facility], we can arrange follow-up as well [place] Otolaryngology-Head AND Neck Surgery, PGY-3 Normal [facility] ED Provider Tejal 07-16-19 [employer] Operator Authentication Interface Message Text EMERGENCY DEPARTMENT - [...] PHYSICAL EXAM ----- ED Triage Vitals [07/15/23 7892] Temperature BP Heart Rate Respiratory Rate SpO2 [...] resident's note. Ernestina Vogt, DO Normal [facility] HIV1 HIV2 AGAB BELNon 2023 HIV AG-AB SCREEN Non-Reactive Normal Non-Reactive [facility] Comment on above: Order Comment: HIV I nformation: ???[place] Rev. code 3701.243(E):This information has been disclosed [...] iv1 hiv2 agab janie, 8 ####[facility] [id number] [place], [address] Telephone Encounteron 2023 [employer] Operator Authentication Interface Message Text Patient's calling in [...] call back from resident or nurses. #: [phone] Normal [facility] ABO RH TYPEon 07-15-2023 ABO and Rh group Nom (Bld) Blood group A Rh(D) positive Normal [facility] Comment on above: Performed By: #### A VIRGIL #### [facility] [address] [place], [address] ED Noteson 07-15-2023 [employer] Operator Authentication Interface Message Text Patient stated she had two bouts of tarry stools while here tonight in the ED, MD Hammond notified. Normal [facility] ED Provider Noteson 07-15-19 [employer] Operator Authentication Interface Message Text SM 57yo F [...] the plan moving forward , Normal [facility] [employer] Operator Authentication Interface Message Text ---- Attestation signed [...] Thursday, reoccurred today. Pt was seen at [place] [facility] x 3 today, multiple rhino rockets [...] despite pressure. Went to H ED in [place] where they attempted packing multiple times but [...] final disposition Elbert Hammond MD Normal [facility] PARTIAL THROMBOPLASTIN TIMEo n 07-15-2023 aPTT Coag (Bld) [Time] 28 s Normal 25-37 Th e [facility] Comment on above: Performed By: #### A PTT, PT #### [facility] [address] [place] [address], [phone] PROTHROMBIN TIME AND INRon 0 07-15-2023 INR Coag (PPP) [Relative time] 1.08 {INR} Normal 0.90-1.10 [facility] Comment on above: Performed By: #### A PTT, PT #### [facility] [address] [place] [address], PT Coag (PPP) [Time] 12.1 s Normal 9.7-12.9 [facility] Comment on above: Performed By: #### A PTT, PT #### [facility] [address] [place] [address], TYPE AND SCREENon 07-15-2023 ABO and Rh group Nom (Bld) Blood group A Rh(D) positive Normal [facility] Comment on above: Performed By: #### T S #### S PATHOLOGY LABORATORY [address] [place] [address], ABSC INT Negative Normal [facility] Comment on above: Performed By: #### T S #### [facility] [address] [place] [address], Telephone Encounteron 2023 [employer] Operator Authentication Interface Message Text No PCP on [...] agrees to return to ED Normal [facility] Alanine aminotransferase [En zymatic activity/volume] in Serum or PlasmaOrdered By: Agustin Pimentel on 05-28-2023 ALT [Catalytic activity/Vol] 26 U/L 7-[address] [facility] Albumin [Mass/volume] in Ser um or Plasma by Bromocresol green (BCG) dye binding methoOrdered By: Agustin Pimentel on 05-28-2023 Albumin BCG dye [Mass/Vol] 4.4 g/dL 3.5-5.[address] [facility] Alkaline phosphatase [Enzyma tic activity/volume] in Serum or PlasmaOrdered By: Agustin Pimentel on 05-28-2023 ALP [Catalytic activity/Vol] 76 U/L 34-[address] [facility] Aspartate aminotransferase [ Enzymatic activity/volume] in Serum or PlasmaOrdered By: Agustin Pimentel on 05-28-2023 AST [Catalytic activity/Vol] 27 U/L 13-[address] [facility] Automated erythrocytes count in urine sediment (number/area)Ordered By: Agustin Pimentel on 05-28-2023 RBC Auto (Urine sed) [#/Area] 1-2 [HPF] 0-[address] [facility] Automated leukocytes count i n urine sediment (number/area)Ordered By: Agustin Pimentel on 05-28-2023 WBC Auto (Urine sed) [#/Area] 0-1 [HPF] 0-[address] [facility] Basic Metabolic Panelon 05-14 Anion gap [Moles/Vol] 12.6 mmol/L Normal 6.0-15.0 [facility] Comment on above: Performed By: #### C BC, HEPATIC, BMP, LIPASE #### [facility] [address] [id number] [place] Calcium [Mass/Vol] 8.7 mg/dL Normal 8.6-10.3 The [facility] Comment on above: Performed By: #### C BC, HEPATIC, BMP, LIPASE #### [facility] [address] [id number] [place] Chloride [Moles/Vol] 102 mmol/L Normal 98-107 [facility] Comment on above: Performed By: #### C BC, HEPATIC, BMP, LIPASE #### [facility] [address] [place] [address] [place] CO2 [Moles/Vol] 26.0 mmol/L Normal 21.0-31.0 The [facility] Comment on above: Performed By: #### C BC, HEPATIC, BMP, LIPASE #### [facility] [address] [id number] [place] Creatinine [Mass/Vol] 0.76 mg/dL Normal 0.60-1.20 [facility] Comment on above: Performed By: #### C BC, HEPATIC, BMP, LIPASE #### [facility] [address] Creatinine Clr Calc Pharmacy 104.33 Normal [facility] Comment on above: Performed By: #### C BC, HEPATIC, BMP, LIPASE #### [facility] [address] GFR/1.73 sq M.predicted MDRD (S/P/Bld) [Vol rate/Area] mL/min/{1.73_m2} Normal [facility] Comment on above: Performed By: #### C BC, HEPATIC, BMP, LIPASE #### [facility] [address] Glucose [Mass/Vol] 97 mg/dL Normal 70-100 The [facility] Comment on above: Result Comment: [place] Glucose Reference Range is dependent on time and content of last meal. Glucose of more than 200 mg/dL in a nonstressed, ambulatory subject supports the diagnosis of Diabetes Mellitus. ADA recommended reference range Performed By: #### C BC, HEPATIC, BMP, LIPASE #### [address] Potassium [Moles/Vol] 3.6 mmol/L Normal 3.5-5.1 [facility] Comment on above: Performed By: #### C BC, HEPATIC, BMP, LIPASE #### [address] Sodium [Moles/Vol] 137 mmol/L Normal 136-145 The [facility] Comment on above: Performed By: #### C BC, HEPATIC, BMP, LIPASE #### [facility] [address] Urea nitrogen [Mass/Vol] 8 mg/dL Normal 7-25 [facility] Comment on above: Performed By: #### C BC, HEPATIC, BMP, LIPASE #### [address] Basophils Auto (Bld) [#/Vol] Ordered By: Agustin Pimentel on 05-28-2023 Basophils (Bld) [#/Vol] 0.0 10*3/uL 0.0-0.[address] [facility] Basophils/100 WBC Auto (Bld) Ordered By: Agustin Pimentel on 05-28-2023 Basophils/100 WBC (Bld) 1.1 % . F [facility] Bilirubin Test strip Ql (U)O rdered By: Agustin Pimentel on 05-28-2023 Bilirubin Ql (U) Negative Negative [facility] Bilirubin.direct [Mass/volum e] in Serum or PlasmaOrdered By: Agustin Pimentel on 05-28-2023 Bilirubin.direct [Mass/Vol] 0.20 mg/dL 0.03-0.[address] [facility] Bilirubin.total [Mass/volume ] in Serum or PlasmaOrdered By: Agustin Pimentel on 05-28-2023 Bilirubin [Mass/Vol] 0.6 mg/dL 0.3-1.0 [facility] Calcium [Mass/volume] in Ser um or PlasmaOrdered By: Agustin Pimentel on 05-28-2023 Calcium [Mass/Vol] 8.7 mg/dL 8.6-10.3 [facility] Carbon dioxide, total [Moles /volume] in Serum or PlasmaOrdered By: Agustin Pimentel on 05-28-2023 CO2 [Moles/Vol] 26.0 mmol/L 21.0-31.0 [facility] Chloride [Moles/volume] in S chris or PlasmaOrdered By: Agustin Pimentel on 05-28-2023 Chloride [Moles/Vol] 102 mmol/L 98-107 [facility] Clostridioides difficile tox in B tcdB gene [Presence] in Stool by BEE with probe deteOrdered By: Agustin Pimentel on 05-28-2023 C. difficile toxin B tcdB gene BEE+probe Ql (Stl) Negative Negative [facility] Comment on above: Testing performed by RT-PCR Clostridium Difficileon 05-14 Clostridium Difficile Negative Normal Negative [facility] Comment on above: Order Comment: > or = to 3 loose/watery stools in the last 24 HRS? Y Is patient on promotility agents or tube feeding? N Result Comment: Test ing performed by RT-PCR PERFORMED BY: [place] [address] PATHOLOGIST DRAFTING DETAILER SWAPNIL CAI M.D. Performed By: #### C DT #### [address] Color Auto (U)Ordered By: Eduardo Pimentel on 05-28-2023 Color (U) Yellow Yellow [facility] Complete Blood Count Auto Di ffon 05-28-2023 Basophils (Bld) [#/Vol] 0.0 10*3/uL Normal 0.0-0.2 [facility] Comment on above: Result Comment: PERF ORMED BY: [place] [address] PATHOLOGIST DRAFTING DETAILER SWAPNIL CAI M.D. Performed By: #### C BC, HEPATIC, BMP, LIPASE #### [address] Basophils/100 WBC (Bld) 1.1 % Normal . T [facility] Comment on above: Performed By: #### C BC, HEPATIC, BMP, LIPASE #### [address] Eosinophils (Bld) [#/Vol] 0.0 10*3/uL Normal 0.0-0.45 [facility] Comment on above: Performed By: #### C BC, HEPATIC, BMP, LIPASE #### [address] Eosinophils/100 WBC (Bld) 0.9 % Normal . [facility] Comment on above: Performed By: #### C BC, HEPATIC, BMP, LIPASE #### [address] Erythrocyte distribution width (RBC) [Ratio] 13.0 % Normal 11.9-15.3 The [facility] Comment on above: Performed By: #### C BC, HEPATIC, BMP, LIPASE #### [address] Hematocrit (Bld) [Volume fraction] 39.0 % Normal 34.0-46.4 [facility] Comment on above: Performed By: #### C BC, HEPATIC, BMP, LIPASE #### [address] Hemoglobin (Bld) [Mass/Vol] 13.5 g/dL Normal 11.8-15.4 [facility] Comment on above: Performed By: #### C BC, HEPATIC, BMP, LIPASE #### [address] Lymphocytes (Bld) [#/Vol] 0.5 10*3/uL Low 1.00-4.8 [facility] Comment on above: Performed By: #### C BC, HEPATIC, BMP, LIPASE #### [address] Lymphocytes/100 WBC (Bld) 22.7 % Normal . [facility] Comment on above: Performed By: #### C BC, HEPATIC, BMP, LIPASE #### [address] MCH (RBC) [Entitic mass] 29.8 pg Normal 24.7-34.3 [facility] Comment on above: Performed By: #### C BC, HEPATIC, BMP, LIPASE #### [address] MCV (RBC) [Entitic vol] 86.0 fL Normal 80-100 T he [facility] Comment on above: Performed By: #### C BC, HEPATIC, BMP, LIPASE #### [address] Mean Corpuscular HGB Conc 34.7 g/dL Normal 32.0-35.0 [facility] Comment on above: Performed By: #### C BC, HEPATIC, BMP, LIPASE #### [address] Monocytes (Bld) [#/Vol] 0.2 10*3/uL Normal 0.0-0.8 [facility] Comment on above: Performed By: #### C BC, HEPATIC, BMP, LIPASE #### [address] Monocytes/100 WBC (Bld) 25.29 % High 0.00-20.00 T [facility] Comment on above: Result Comment: For adults in ED, MDW > 20.0 may be associated with a higher risk of sepsis during the first 12 hrs of hospital admission Performed By: #### C BC, HEPATIC, BMP, LIPASE #### [address] Monocytes/100 WBC (Bld) 9.8 % Normal . T [facility] Comment on above: Performed By: #### C BC, HEPATIC, BMP, LIPASE #### [address] Neutrophils (Bld) [#/Vol] 1.5 10*3/uL Low 1.8-7.7 [facility] Comment on above: Performed By: #### C BC, HEPATIC, BMP, LIPASE #### [address] Neutrophils/100 WBC (Bld) 65.5 % Normal . [facility] Comment on above: Performed By: #### C BC, HEPATIC, BMP, LIPASE #### [address] NRBC% 0.2 /100{WBC} Normal 0-0.5 The [facility] Comment on above: Performed By: #### C BC, HEPATIC, BMP, LIPASE #### [address] Platelet mean volume (Bld) [Entitic vol] 7.8 fL Normal 6.3-10.7 The [facility] Comment on above: Performed By: #### C BC, HEPATIC, BMP, LIPASE #### [place] [address] [place] Platelets (Bld) [#/Vol] 163 10*3/uL Normal 150-450 [facility] Comment on above: Performed By: #### C BC, HEPATIC, BMP, LIPASE #### [place] [address] [place] RBC (Bld) [#/Vol] 4.54 10*6/uL Normal 3.60-5.00 The [facility] Comment on above: Performed By: #### C BC, HEPATIC, BMP, LIPASE #### [facility] [address] WBC (Bld) [#/Vol] 2.2 10*3/uL Low 3.8-11.6 [facility] [facility], [facility] Comment on above: Performed By: #### C BC, HEPATIC, BMP, LIPASE #### [facility] [address] Creatinine [Mass/volume] in Serum or PlasmaOrdered By: Agustin Pimentel on 05-28-2023 Creatinine [Mass/Vol] 0.76 mg/dL 0.60-1.20 [facility] Dipstick and Microscopicon 0 05-28-2023 Appearance (U) Clear Normal Clear [facility] Comment on above: Order Comment: Name Collection Type:: Clean-Voided Midstream Performed By: #### A DDONUAPLUS #### [address] Bacteria,Urine None Seen Normal None Seen [facility] Comment on above: Order Comment: Name Collection Type:: Clean-Voided Midstream Performed By: #### A DDONUAPLUS #### [place] [address] [place] Bilirubin,Urine Negative Normal Negative [facility] Comment on above: Order Comment: Name Collection Type:: Clean-Voided Midstream Performed By: #### A DDONUAPLUS #### [place] [address] [place] Color (U) Yellow Normal Yellow [facility] Comment on above: Order Comment: Name Collection Type:: Clean-Voided Midstream Performed By: #### A DDONUAPLUS #### [place] [address] [place] Glucose Ql (U) Normal Normal Normal [facility] Comment on above: Order Comment: Name Collection Type:: Clean-Voided Midstream Performed By: #### A DDONUAPLUS #### [place] [address] [place] Hyaline Casts,Urine 0-8 Normal 0-8 [facility] Comment on above: Order Comment: Name Collection Type:: Clean-Voided Midstream Result Comment: PERF ORMED BY: [place] [address] PATHOLOGIST DRAFTING DETAILER SWAPNIL CAI M.D. Performed By: #### A DDONUAPLUS #### [place] [address] [place] Ketones Ql (U) 3+ High Negative [facility] Comment on above: Order Comment: Name Collection Type:: Clean-Voided Midstream Performed By: #### A DDONUAPLUS #### [place] [address] [place] Leukocyte esterase Test strip Ql (U) Negative Normal Negative [facility] Comment on above: Order Comment: Name Collection Type:: Clean-Voided Midstream Performed By: #### A DDONUAPLUS #### [place] [address] [place] Nitrite,Urine Negative Normal Negative [facility] Comment on above: Order Comment: Name Collection Type:: Clean-Voided Midstream Performed By: #### A DDONUAPLUS #### [place] [address] [place] Occult Blood,Urine Trace High Negative The [facility] Comment on above: Order Comment: Name Collection Type:: Clean-Voided Midstream Result Comment: PERF ORMED BY: [place] [address] PATHOLOGIST DRAFTING DETAILER SWAPNIL CAI M.D. Performed By: #### A DDONUAPLUS #### [place] [address] [place] pH (U) 6.0 [pH] Normal 5.0-9.0 [facility] Comment on above: Order Comment: Name Collection Type:: Clean-Voided Midstream Performed By: #### A DDONUAPLUS #### [address] Protein,Urine Negative Normal Negative [facility] Comment on above: Order Comment: Name Collection Type:: Clean-Voided Midstream Performed By: #### A DDONUAPLUS #### [address] RBC,Urine 1-2 Normal 0-4 [facility] Comment on above: Order Comment: Name Collection Type:: Clean-Voided Midstream Performed By: #### A DDONUAPLUS #### [address] Specificy [place],Urine 1.011 Normal 1.001-1.030 [facility] Comment on above: Order Comment: Name Collection Type:: Clean-Voided Midstream Performed By: #### A DDONUAPLUS #### [address] Squamous Epithelial Cell,Urine 0-1 Normal 0-2 [facility] Comment on above: Order Comment: Name Collection Type:: Clean-Voided Midstream Performed By: #### A DDONUAPLUS #### [address] Urobilinogen,Urine Normal Normal Normal [facility] Comment on above: Order Comment: Name Collection Type:: Clean-Voided Midstream Performed By: #### A DDONUAPLUS #### [address] WBC LM.HPF (Urine sed) [#/Area] 0 /[HPF] Normal 0-4 [facility] Comment on above: Order Comment: Name Collection Type:: Clean-Voided Midstream Performed By: #### A DDONUAPLUS #### [address] Eosinophils Auto (Bld) [#/Vo l]Ordered By: Agustin Pimentel on 05-28-2023 Eosinophils (Bld) [#/Vol] 0.0 10*3/uL 0.0-0.[address] [facility] Eosinophils/100 WBC Auto (Bl d)Ordered By: Agustin Pimentel on 05-28-2023 Eosinophils/100 WBC (Bld) 0.9 % . [facility] Erythrocyte distribution wid th Auto (RBC) [Ratio]Ordered By: Agustin Pimentel on 05-28-2023 Erythrocyte distribution width (RBC) [Ratio] 13.0 % 11.9-15.[address] [facility] Globulin Calc (S) [Mass/Vol] Ordered By: Agustin Pimentel on 05-28-2023 Globulin (S) [Mass/Vol] 3.0 g/dL [facility] Glucose [Mass/volume] in Ser um or PlasmaOrdered By: Agustin Pimentel on 05-28-2023 Glucose [Mass/Vol] 97 mg/dL 70-100 [facility] Comment on above: ADA recommended refe rence rangeRandom Glucose Reference Range is dependent on time and content of last meal. Glucose of more than 200 mg/dL in a nonstressed, ambulatory subject supports the diagnosis of Diabetes Mellitus. Hematocrit Auto (Bld) [Volum e fraction]Ordered By: Agustin Pimentel on 05-28-2023 Hematocrit (Bld) [Volume fraction] 39.0 % 34.0-46.[address] [facility] Hemoglobin [Mass/volume] in BloodOrdered By: Agustin Pimentel on 05-28-2023 Hemoglobin (Bld) [Mass/Vol] 13.5 g/dL 11.8-15.[address] [facility] Hepatic Panelon 05-28-2023 Albumin [Mass/Vol] 4.4 g/dL Normal 3.5-5.7 [facility] Comment on above: Performed By: #### C BC, HEPATIC, BMP, LIPASE #### [facility] [address] [place] [address] [place] Albumin/Globulin [Mass ratio] 1.5 {ratio} Normal [facility] Comment on above: Performed By: #### C BC, HEPATIC, BMP, LIPASE #### [facility] [address] [place] [id number] [facility] ALP [Catalytic activity/Vol] 76 U/L Normal 34-104 [facility] Comment on above: Performed By: #### C BC, HEPATIC, BMP, LIPASE #### [address] ALT [Catalytic activity/Vol] 26 U/L Normal 7-52 [facility] Comment on above: Performed By: #### C BC, HEPATIC, BMP, LIPASE #### [facility] [address] AST [Catalytic activity/Vol] 27 U/L Normal 13-39 [facility] Comment on above: Performed By: #### C BC, HEPATIC, BMP, LIPASE #### [address] Bilirubin [Mass/Vol] 0.6 mg/dL Normal 0.3-1.0 [facility] Comment on above: Performed By: #### C BC, HEPATIC, BMP, LIPASE #### [address] Bilirubin,Indirect 0.4 mg/dL Normal [facility] Comment on above: Performed By: #### C BC, HEPATIC, BMP, LIPASE #### [address] Bilirubin.indirect [Mass/Vol] 0.20 mg/dL High 0.03-0.18 [facility] Comment on above: Performed By: #### C BC, HEPATIC, BMP, LIPASE #### [address] Globulin (S) [Mass/Vol] 3.0 g/dL Normal T [facility] Comment on above: Performed By: #### C BC, HEPATIC, BMP, LIPASE #### [address] Protein [Mass/Vol] 7.4 g/dL Normal 6.4-8.9 [facility] Comment on above: Performed By: #### C BC, HEPATIC, BMP, LIPASE #### [address] Ketones Auto test strip (U) [Mass/Vol]Ordered By: Agustin Pimentel on 05-28-2023 Ketones (U) [Mass/Vol] 3+ Negative [facility] - UrinalysisOrder ed By: Agustin Pimentel on 05-28-2023 Hyaline casts LM Ql (Urine sed) 0-8 [LPF] 0-[address] [facility] Leukocytes [#/volume] correc zainab for nucleated erythrocytes in Blood by Automated counOrdered By: Agustin Pimentel on 05-28-2023 WBC corrected for nucl RBC Auto (Bld) [#/Vol] 2.2 10*3/uL 3.8-11.[address] [facility] Lipaseon 05-28-2023 Lipase [Catalytic activity/Vol] 11.0 U/L Normal 11.0-82.0 [facility] Comment on above: Result Comment: PERF ORMED BY: [place] [address] PATHOLOGIST DRAFTING DETAILER SWAPNIL CAI M.D. Performed By: #### C BC, HEPATIC, BMP, LIPASE #### [address] Lipase [Enzymatic activity/v olume] in Serum or PlasmaOrdered By: Agustin Pimentel on 05-28-2023 Lipase [Catalytic activity/Vol] 11.0 U/L 11.0-82.[address] [facility] Lymphocytes Auto (Bld) [#/Vo l]Ordered By: Agustin Pimentel on 05-28-2023 Lymphocytes (Bld) [#/Vol] 0.5 10*3/uL 1.00-4.[address] [facility] Lymphocytes/100 WBC Auto (Bl d)Ordered By: Agustin Pimentel on 05-28-2023 Lymphocytes/100 WBC (Bld) 22.7 % . [facility] MCH Auto (RBC) [Entitic mass ]Ordered By: Agustin Pimentel on 05-28-2023 MCH (RBC) [Entitic mass] 29.8 pg 24.7-34.[address] [facility] MCHC Auto (RBC) [Mass/Vol]Or dered By: Agustin Pimentel on 05-28-2023 MCHC (RBC) [Mass/Vol] 34.7 g/dL 32.0-35.0 [facility] MCV Auto (RBC) [Entitic vol] Ordered By: Agustin Pimentel on 05-28-2023 MCV (RBC) [Entitic vol] 86.0 fL 80-100 [facility] Monocyte distribution width [Entitic volume] in Blood by AutomatedOrdered By: Agustin Pimentel on 05-28-2023 Monocyte distribution width Auto (Bld) [Entitic vol] 25.29 % 0.00-20.[address] [facility] Comment on above: For adults in ED, MD W > 20.0 may be associated with a higher risk of sepsis during the first 12 hrs of hospital admission Monocytes Auto (Bld) [#/Vol] Ordered By: Agustin Pimentel on 05-28-2023 Monocytes (Bld) [#/Vol] 0.2 10*3/uL 0.0-0.[address] [facility] Monocytes/100 WBC Auto (Bld) Ordered By: Agustin Pimentel on 05-28-2023 Monocytes/100 WBC (Bld) 9.8 % . [facility] Neutrophils Auto (Bld) [#/Vo l]Ordered By: Agustin Pimentel on 05-28-2023 Neutrophils (Bld) [#/Vol] 1.5 10*3/uL 1.8-7.[address] [facility] Neutrophils/100 WBC Auto (Bl d)Ordered By: Agustin Pimentel on 05-28-2023 Neutrophils/100 WBC (Bld) 65.5 % . [facility] Nitrite Test strip Ql (U)Ord ered By: Agustin Pimentel on 05-28-2023 Nitrite Ql (U) Negative Negative [facility] No Panel InformationOrdered By: Agustin Pimentel on 05-28-2023 Estimated GFR (CKD-EPI) > 60.0 mL/Min [facility] Creatinine Clearance (Chem 104.[address] [facility] Nucleated erythrocytes [Pres ence] in Blood by Automated countOrdered By: Agustin Pimentel on 05-28-2023 Nucleated RBC Auto Ql (Bld) 0.2 /100{WBC} 0-0.[address] [facility] Platelet mean volume Auto (B ld) [Entitic vol]Ordered By: Agustin Pimentel on 05-28-2023 Platelet mean volume (Bld) [Entitic vol] 7.8 fL 6.3-10.[address] [facility] Platelets Auto (Bld) [#/Vol] Ordered By: Agustin Pimentel on 05-28-2023 Platelets (Bld) [#/Vol] 163 10*3/uL 150-[address] [facility] Potassium [Moles/volume] in Serum or PlasmaOrdered By: Agustin Pimentel on 05-28-2023 Potassium [Moles/Vol] 3.6 mmol/L 3.5-5.1 [facility] Protein Auto test strip (U) [Mass/Vol]Ordered By: Agustin Pimentel on 05-28-2023 Protein (U) [Mass/Vol] Negative Negative [facility] Protein [Mass/volume] in Ser um or PlasmaOrdered By: Agustin Pimentel on 05-28-2023 Protein [Mass/Vol] 7.4 g/dL 6.4-8.9 [facility] RBC Auto (Bld) [#/Vol]Ordere d By: Agustin Pimentel on 05-28-2023 RBC (Bld) [#/Vol] 4.54 10*6/uL 3.60-5.00 [facility] Serum or plasma albumin/glob ulin mass ratioOrdered By: Agustin Pimentel on 05-28-2023 Albumin/Globulin [Mass ratio] 1.5 {ratio} [facility] Serum or plasma anion gap de terminationOrdered By: Agustin Pimentel on 05-28-2023 Anion gap [Moles/Vol] 12.6 mmol/L 6.0-15.0 [facility] Serum or plasma non-glucuron idated bilirubin measurement (mass/volume)Ordered By: Agustin Pimentel on 05-28-2023 Bilirubin.indirect [Mass/Vol] 0.4 mg/dL [facility] Sodium [Moles/volume] in Ser um or PlasmaOrdered By: Agustin Pimentel on 05-28-2023 Sodium [Moles/Vol] 137 mmol/L 136-145 [facility] Specific gravity Auto test s trip (U) [Rel density]Ordered By: Agustin Pimentel on 05-28-2023 Specific gravity (U) [Rel density] 1.011 1.001-1.[address] [facility] Squamous epithelial cells de tection in urine sediment by light microscopyOrdered By: Agustin Pimentel on 05-28-2023 Epithelial cells.squamous LM Ql (Urine sed) 0-1 [HPF] 0-[address] [facility] Urea nitrogen [Mass/volume] in Serum or PlasmaOrdered By: Agustin Pimentel on 05-28-2023 Urea nitrogen [Mass/Vol] 8 mg/dL 7-[address] [facility] Urine bacteria detection by automated methodOrdered By: Agustin Pimentel on 05-28-2023 Bacteria Auto Ql (U) None seen None Seen [facility] Urine clarity by refractomet ry automatedOrdered By: Agustin Pimentel on 05-28-2023 Clarity Refractometry automated (U) Clear Clear [facility] Urine glucose measurement by automated test strip (mass/volume)Ordered By: Agustin Pimentel on 05-28-2023 Glucose Auto test strip (U) [Mass/Vol] Normal mg/dL Normal [facility] Urine hemoglobin detection b y automated test stripOrdered By: Agustin Pimentel on 05-28-2023 Hemoglobin Auto test strip Ql (U) Trace Negative [facility] Urine leukocyte esterase det ection by automated test stripOrdered By: Agustin Pimentel on 05-28-2023 Leukocyte esterase Auto test strip Ql (U) Negative Negative [facility] Urobilinogen Auto test strip (U) [Mass/Vol]Ordered By: Agustin Pimentel on 05-28-2023 Urobilinogen (U) [Mass/Vol] Normal mg/dL Normal [facility] WBC Auto (Bld) [#/Vol]Ordere d By: Agustin Pimentel on 05-28-2023 WBC (Bld) [#/Vol] 2.2 10*3/uL 3.8-11.6 [facility] pH Auto test strip (U)Ordere d By: Agustin Pimentel on 05-28-2023 pH (U) 6.0 [pH] 5.0-9.[address] [facility] Echocardiogramon 12-18-[address], Suite [facility], [place] [address] TRANSTHORACIC ECHOCARDIOGRAM REPORT Patient Name: JULIETA VILLA Reading Physician: [id number] Kieran Kong DO Study Date: 12/18/2020 Referring Physician: [id number] TODD ROSALES MRN/PID: [id number] PCP: Marie Nielson Accession/Order#: [id number] Department Location: [facility] Date of : 1965 Fellow: Gender: F Nurse: Admit Date: Surveying Crew Stake Runner: Sonia Santillan RDCS, RVT Height: 165.10 cm CC Report to: Weight: 102.06 kg Study Type: Echocardiogram BSA: 2.08 m2 Blood Pressure: 128 /84 mmHg Diagnosis/ICD: Q21.1-Atrial septal defect (ASD); 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 Indication: Abnormal EKG-RBBB, Former Smoker, Obesity Procedure/CPT: Echo Complete w Full [id number] Study Detail: The following Echo studies were [...] 0.9 m/s (0.6-0.9m/s) PV Max P.2 mmHg [id number] Kieran Luann WALKER Electronically signed on 12/19/2020 at 1:45:17 PM Final Normal [facility] Vital Signs Date Time Vital Sign Value Performing Clinician Facility 01-12-2024 09:55-0400 Body height 167.6 cm Kenna Dahl NP Work Phone: [facility] 01-12-2024 09:55-0400 Body mass index (BMI) [Ratio] 41 kg/m2 Kenna Dahl [employer] Work Phone: [facility] 01-12-2024 09:55-0400 Body weight 115.21 kg Kenna Dahl NP Work Phone: [facility] 01-12-2024 09:55-0400 Diastolic blood pressure 70 mm[Hg] Kenna Dahl [employer] Work Phone: [facility] 01-12-2024 09:55-0400 Heart rate 69 /min Kenna Dahl [employer] Work Phone: [facility] 01-12-2024 09:55-0400 SaO2% (BldA) [Mass fraction] 96 % Kenna Dahl [employer] Work Phone: [facility] 01-12-2024 09:55-0400 Systolic blood pressure 128 mm[Hg] Kenna Dahl [employer] Work Phone: [facility] 07-21-2023 14:20-0400 Body temperature 98.71 [degF] Ent Resident [facility] 07-21-2023 14:20-0400 Heart rate 73 /min Ent Resident [facility] 07-21-2023 14:20-0400 SaO2% (BldA) [Mass fraction] 97 % Ent Resident [facility] 07-13-2023 14:00-0400 Body temperature 97.1 [degF] MD Marie Nielson Work Phone: [facility] 07-13-2023 14:00-0400 Diastolic blood pressure 90 mm[Hg] MD Marie Nielson Work Phone: [facility] 07-13-2023 14:00-0400 Heart rate 78 /min MD Marie Nielson Work Phone: [facility] 07-13-2023 14:00-0400 Respiratory rate 18 /min MD Marie Nielson Work Phone: [facility] 07-13-2023 14:00-0400 SaO2% (BldA) [Mass fraction] 96 % MD Marie Nielson Work Phone: [facility] 07-13-2023 14:00-0400 Systolic blood pressure 168 mm[Hg] MD Marie Nielson Work Phone: [facility] 07-13-2023 01:56-0400 Body height 165.1 cm MD aMrie Nielson Work Phone: [facility] 07-13-2023 01:56-0400 Body weight 116 kg MD Marie Nielson Work Phone: [facility] 05-28-2023 10:39-0500 Diastolic blood pressure 96 mm[Hg] MD Marie Nielson Work Phone: [facility] 05-28-2023 10:39-0500 Heart rate 68 /min MD Marie Nielson Work Phone: [facility] 05-28-2023 10:39-0500 Respiratory rate 16 /min MD Marie Nielson Work Phone: [facility] 05-28-2023 10:39-0500 SaO2% (BldA) [Mass fraction] 98 % MD Marie Nielson Work Phone: [facility] 05-28-2023 10:39-0500 Systolic blood pressure 167 mm[Hg] MD Marie Nielson Work Phone: [facility] 05-28-2023 08:40-0500 Body height 165.1 cm MD Marie Nielson Work Phone: [facility] 05-28-2023 08:40-0500 Body temperature 98.5 [degF] MD Marie Nielson Work Phone: [facility] 05-28-2023 08:40-0500 Body weight 114.4 kg MD Marie Nielson Work Phone: [facility] Encounters Encounter Date Encounter Type Care Provider Facility Start: 01-12-2024 End: 01-12-2024 Bamboo flowsheet Kenna Dahl [employer] Work Phone: [facility] Start: 01-12-2024 End: 01-12-2024 Bamboo flowsheet Kenna Dahl [employer] Work Phone: [facility] Start: 01-12-2024 End: 01-12-2024 Assay of hemosiderin, quant Kenna Dahl [employer] Work Phone: [facility] Start: 01-12-2024 End: 01-12-2024 Patient encounter procedure Kenna Dahl [employer] Work Phone: [facility] Comment on above: Medicare annual well ness visit, subsequent (Primary Dx); Chronic tension-type headache, not intractable; Other chronic pain; Atrial septal aneurysm (CMS/HCC); Right bundle branch block; Atrial septal defect within oval fossa; Irritable bowel syndrome with diarrhea; Fibromyalgia; Borderline type 2 diabetes mellitus; Hypothyroidism, unspecified type ([facility]/HCC); Morbid obesity due to excess calories ([facility]); Obesity (BMI 30-39.9); Adjustment disorder with other symptom ([facility]/HCC); Anxiety; Elevated LDL cholesterol level ([facility]); History of hysterectomy; Hypertriglyceridemia ([facility]); Lipoprotein deficiency disorder ([facility]); Chronic midline low back pain without sciatica; Intractable chronic migraine with aura and without status migrainosus ([facility]); Bloating; Pain of ovary; Mixed hyperlipidemia ([facility]); Rheumatoid arthritis, unspecified ([facility]); Routine general medical examination at health care facility; Screening for lung cancer; Nicotine dependence, cigarettes, uncomplicated Start: 01-12-2024 End: 01-12-2024 ambulatory KENNA DAHL Not Available Start: 10-27-2023 End: 10-27-2023 ambulatory KENNA DAHL Not Available Start: 08-26-2023 End: 08-26-2023 ambulatory KENNA DAHL Not Available Start: 08-18-2023 End: 08-18-2023 ambulatory KENNA DAHL Not Available Start: 07-21-2023 End: 07-23-2023 ambulatory UNKNOWN PROVIDER Facility:[facility] Start: 07-21-2023 End: 07-23-2023 Office outpatient new 30 minutes Ent Resident [facility] Otolaryngology (ENT) Comment on above: Epistaxis (Primary D x) Start: 07-16-2023 End: 07-16-2023 Emergency department [facility] VOGT [facility] Start: 07-15-2023 End: 07-15-2023 Emergency department patient visit TOMMY VILLAGOMEZ Facility:[facility] Start: 07-14-2023 End: 07-14-2023 ambulatory KENNA DAHL Not Available Start: 07-13-2023 End: 07-13-2023 Emergency department patient visit Med Owens Facility:[facility] Start: 07-13-2023 End: 07-13-2023 Emergency department patient visit MD Marie Nielsno Work Phone: [facility] Work Phone: Start: 07-09-2023 End: 07-09-2023 ambulatory LAURA Almanza FELTER Not Available Start: 06-09-2023 End: 06-09-2023 ambulatory LAURA Almanza FELTER Not Available Start: 06-02-2023 End: 06-02-2023 ambulatory KENNA DAHL Not Available Start: 05-28-2023 End: 05-28-2023 Emergency department patient visit Agustin Pimentel Facility:[facility] Start: 05-28-2023 End: 05-28-2023 Emergency department patient visit MD Marie Nielson Work Phone: [facility] Work Phone: Start: 03-24-2023 End: 03-24-2023 ambulatory MARIE NIELSON Not Available Start: 03-16-2023 End: 03-16-2023 ambulatory ELIECER Olivares MATEUSZRADHA Not Available Start: 07-13-2022 End: 07-13-[address] MARIE NIELSON Facility:[facility] Procedures Date Procedure Procedure Detail Performing Clinician Start: 12-17-2022 H/O: hysterectomy History of hystere ctomy Kenna Dahl [employer] Work Phone: Start: 01-04-2019 Mammography Kenna guerrero [employer] Work Phone: Start: 02-25-2018 Colonoscopy Kenna guerrero [employer] Work Phone: H/O: hysterectomy History of hysterectomy Kenna Dahl [employer] Work Phone: Plan of Treatment Date Care Activity Detail Author Start: 06-04-2028 Cholesterol [Mass/volume] in Serum or Plasma Cholesterol [facility] Start: 02-26-2028 Screening for malignant neoplasm of colon [facility] Start: 01-11-2025 Medicare Annual Wellness (AWV) Medicare Annual Wellness (AWV) [facility] Start: 10-26-2024 Urine screening for protein Diabetes: Urine Protein Screening [facility] Start: 06-03-2024 End: 01-11-2025 Lipid 1996 panel - Serum or Plasma Lipid panel Lab Routine Mixed hyperlipidemia (CMS/HCC) Expected: 06/03/2024 (Approximate), Expires: 01/11/2025 [facility] Work Phone: Comment on above: Expected: 06/03/2024 (Approximate), Expires: 01/11/2025 Start: 01-12-2024 End: 01-11-2025 CT Chest for screening WO contrast CT lung screening low dose Imaging Routine Screening for lung cancer Nicotine dependence, cigarettes, uncomplicated Expected: 01/12/2024, Expires: 01/11/2025 [facility] Comment on above: Expected: 01/12/2024 , Expires: 01/11/2025 Start: 01-12-2024 End: 01-11-2025 Hemoglobin A1c/Hemoglobin.total in Blood Hemoglobin A1c Lab Routine Borderline type 2 diabetes mellitus Expected: 01/12/2024 (Approximate), Expires: 01/11/2025 [facility] Comment on above: Expected: 01/12/2024 (Approximate), Expires: 01/11/2025 Start: 01-12-2024 End: 01-11-2025 Microalbumin/Creatinin e panel in random Urine Microalbumin / creatinine, urine ratio Lab Routine Borderline type 2 diabetes mellitus Expected: 01/12/2024 (Approximate), Expires: 01/11/2025 [facility] Comment on above: Expected: 01/12/2024 (Approximate), Expires: 01/11/2025 Start: 01-12-2024 End: 01-12-2024 Patient encounter procedure 01/12/2024 10:00 AM EDT Office Visit [facility] [address] [facility] [address] [place] [id number] Kenna Dahl NP [address] [facility] [[email or web address] [address] [place] [address] Arrived [facility] Comment on above: Arrived Start: 12-13-2023 Influenza vaccination Influenza Vacc ine (#1) [facility] Start: 09-01-2023 Hemoglobin A1c measurement Diabetes: Hemoglobin A1C [facility] Start: 05-28-[address] [facility] Start: 01-05-2020 Screening for malignant neoplasm of breast [facility] Start: 2016 Shingles (RZV) Vacci ne (1 of 2) Shingles (RZV) Vaccine (1 of 2) [facility] Start: 09-11-2014 Annual wellness visit [facility] W ell[id number] Start: 09-13-2011 Screening for malignant neoplasm of colon [facility] Start: 09-13-1987 Screening for malignant neoplasm of cervix Pap Smear [facility] Start: 1985 Hepatitis A (HAV) Vaccine (optional start 19+ years) Hepatitis A (HAV) Vaccine (optional start 19+ years) [facility] Start: 1984 Hepatitis C screening Hepatitis C An tibody [facility] Start: 1984 Tetanus + diphtheria + acellular pertussis vaccine (product) [facility] Start: 1976 Glaucoma screening Diabetes: R etinopathy Screening [facility] Start: 03-14-1967 COVID-19 Vaccine (#1) COVID-19 Vacci ne (#1) [facility] Start: 1966 Hepatitis B vaccination Hepatitis B (HBV) Vaccine (1 of 3 - 3-dose series) [facility] Start: 1966 Medicare Annual Wellness (AWV) Medicare Annual Wellness (AWV) [facility] Start: 1966 Screening for malignant neoplasm of colon [facility] Bacterial cytolethal distending toxin cdt gene [Presence] in Unspecified specimen by BEE with probe detection [facility] Patient Education Diarrhea, Adult ED [facility] Work Phone: Patient referral [facility] Work Phone: Payers Date Payer Category Payer Private Health Insurance [facility] UMR [id number] 2023-Present PPO [id number] 2023 Self-pay [id number] 2023 Unknown [id number] 2023 Unknown [id number] 2023 Unknown [id number] 2013 Medicare [id number] [id number] 1966 Unknown [id number] 2.16.840.1.002809.3.579.2. 593 1966 Unknown [id number] 2.16.840.1.457915.3.579.2. 732 1966 Unknown [id number] 2.16.840.1.132731.3.579.2. 732 1966 Unknown [id number] 2.16.840.1.622228.3.579.2. 732 1966 Unknown [id number] 2.16.840.1.455593.3.579.2. 9 1966 Unknown [id number] 2.16.840.1.208045.3.579.2. 1259 1966 Unknown [id number] 2.16840.1.720631.3.579.2. 9 1966 Unknown [id number] 2.16.840.1.252911.3.579.2. 1259 1966 Unknown [id number] 2.16.840.1.762385.3.579.2. 9 1966 Unknown [id number] 2.16.840.1.799767.3.579.2. 1259 1966 Unknown [id number] 2.16.840.1.698708.3.579.2. 1259 1966 Unknown [id number] 2.16.840.1.180639.3.579.2. 1259 1966 Unknown [id number] 2.16.840.1.858458.3.579.2. 9 1966 Unknown [id number] 2.16.840.1.611509.3.579.2. 1259 1959 Medicare [id number] 1959 Unknown [id number] Unknown [id number] 2.16.840.1.120156.3.579.2. 531 Unknown [id number] 2.16.840.1.576114.3.579.2. 531 Social History Date Type Detail Facility Start: 05-28-2023 End: 01-12-2024 Tobacco smoking status [facility] Ex-smoker (finding) [facility] Start: 1965 Sex Assigned At Female F [facility] Start: 03-23-2023 End: 07-13-2023 Tobacco smoking status [facility] Never smoked tobacco (finding) [facility] Tobacco smoking status [facility] [...] of tobacco use Current smoker [facility] Start: 01-11-1991 History of tobacco use Cigarette Smoker [facility] NEGATED: Highlighted row [facility] History of Present illness Narrative 01-12-2024 Kenna Dahl, [employer] - 01/12/2024 10:00 AM EDT Note Date [...] Do you have a medical power of criminal attorney?: No Objective : BP 128/70 Pulse [...] Print requisition? Answer: No Electronically signed by Knena Dahl NP on January 12, 2024 documented [...] She normally follows with Dr. Floyd in [place] but has elected to come here for [...] Acevedo, PGY-1 Otolaryngology Head and Neck Surgery [facility] Service Pager: [phone] documented in this encounter [facility] Clinical Note 07-16-2023 Note Date & Type [...] role in this case. PLEASE SEE OTHER ATTENDING/RESIDENT/PHYSICIAN/DREDGE OR BARGE SHORE HAND/PA NOTATION Justin Gonsalez MD [facility] 07-15-2023 Note Date [...] control with multiple rhinorockets. Patient transferred to [facility] for ENT evaluation. Patient on ASA 81 [...] rhinorocket attempts at OSH. Patient transferred to [facility] for ENT evaluation. Nasal exam with significant [...] follow-up with ENT - patient lives in [place] and has standing appointment with Dr. Floyd and wishes to follow-up with h (more content not included)... [facility] [employer] [facility] Evaluation note Note Date & Type Note Facility Evaluation note No assessment information availa [facility] Work Phone: Evaluation note Note Date & Type Note Facility Evaluation note Diagnosis Epistaxis- [facility] Note Date & [...] dependence, cigarettes, uncomplicated documented in this encounter [facility] Hospital Discharge instructions Note Date & Type Note Facility Hospital Discharge instructions Additional Instructions Follow-up with your primary care doctor Return to ED if develop worsening symptoms or concerns [facility] Work Phone: Summary Purpose Family [...] CT lung screening low dose Kenna Dahl, [employer] [address] [facility] [[email or web address] [address] [place] [address] [facility] [address] [place] [address] Referral ID Status Reason Start Date Expiration Date V isits Requested Visits Authorized [id number] Authorized 01/12/2024 07/10/2024 1 1 Additional Source Comments INFORMATION SOURCE (unrecogn ized section and content) DATE CREATED AUTHOR 01/05/2021 [facility] DATE CREATED AUTHOR AUTHOR'S ORGANIZ ATION 07/16/2022 [facility] DATE CREATED AUTHOR AUTHOR'S ORGANIZ ATION 07/25/2023 [facility] DATE CREATED AUTHOR AUTHOR'S ORGANIZ ATION 07/25/2023 [facility] DATE CREATED AUTHOR AUTHOR'S ORGANIZ ATION 01/13/2024 [facility] d[facility] Specialists EPIC Care Teams (unrecognized [...] July 13, 2023 End: July 13, 2023 Sand Slinger Operator Relationship Specialty Start Date End Date Marie Nielson MD [address] [place] [address] PCP - ACO Reach 09/04/22 Marie Nielson MD [address] [place] [address] PCP - General Family Medicine 08/19/22ThursdayLina LPN [address] [place] [address] Licensed Practical Nurse Family Medicine 08/07/23 Sand Slinger Operator Relationship Specialty Start Date End Date Marie Nielson MD [address] [place] [address] PCP - ACO Reach 09/04/22 Marie Nielson MD [address] [place] [address] PCP - General Family Medicine 08/19/22ThursdayLina LPN [address] [place] [address] Licensed Practical Nurse Family Medicine 08/07/23 Goals [...] wondering if dose can be increased--send to [facility] FOR RECORDS PERTAINING TO PATIENTS WHO ARE [...] BE BASED ON THE PRIMARY CLINICAL RECORDS. [facility] [email or web address] [facility]. provides no warranty or guarantee of the accuracy or completeness of information in this document.
--- NOTE | 2024-02-09 14:20 | MM_ITS ---
Patient Name: JULIETA CASAS MR#: [id number] : 1965 Exam Date: 02/09/2024 Ordering Doctor: MRS. KENNA SANCHEZ QUILTER FIXER-C RADIOLOGY REPORT PROCEDURE: MM TOMOSYNTHESIS SCREENING BI COMPARISON: MG MAMM SCREEN BELLA W CAD, 01/04/2019. MG MAMM BELLA SCRN W CAD DIG, 06/04/2015. MG MAMM BELLA SCRN W CAD DIG, 12/23/2007. INDICATIONS: Screening Calculator Name NCI Breast Cancer Risk Assessment Tool 5 Year Breast Cancer Risk 1.00% Lifetime Breast Cancer Risk 6.30% Personal Breast Cancer No Personal Ovarian Cancer No Treatments None Family Cancers None LOCATION: [facility] BREAST COMPOSITION: The breasts are heterogeneously dense,which may obscure small masses. FINDINGS: DIAGNOSTIC CATEGORY 1--NEGATIVE. RIGHT BREAST: No significant suspicious finding. No significant change has occurred. LEFT BREAST: No significant suspicious finding. No significant change has occurred. RECOMMENDATIONS: ROUTINE MAMMOGRAM AND CLINICAL EVALUATION IN 12 MONTHS. PLEASE NOTE: A NORMAL MAMMOGRAM DOES NOT EXCLUDE THE POSSIBILITY OF BREAST CANCER. A CLINICALLY SUSPICIOUS PALPABLE LUMP SHOULD BE BIOPSIED. Dictated by: Bob Almanzar M.D. on 02/09/2024 at 15:55 Approved by: Bob Almanzar M.D. on 02/09/2024 at 15:57
== END 2024-02-09 14:13 | disposition home or self-care (01) ==
LOC: MAMMO 14:12
PROVIDERS: PCP Family Medicine; Visit Provider Nurse Practitioner Family
DX: Z12.31 Encounter for screening mammogram for malignant neoplasm of breast (principal)
CPT/HCPCS: 77063; 77067